=== PATIENT | female | born 1975 | race African-American/Black ===

== ENCOUNTER 2017-07-24 15:36 | Inpatient (IN) | payer MEDICAID ==
[2017-07-24] MEDS: SOD CHLORIDE 0.9% 1,000 ML IV ×2 (17:00→17:13)
[2017-07-24 17:12] LABS: ADD MAN DIFF? NO
[2017-07-24] MEDS: HYDROmorphONE 1 MG/ML SYG IV (17:13)
[2017-07-24] MEDS: ONDANSETRON 4 MG INJ IV (17:13)
[2017-07-24 17:14] LABS: BASOPHILS % 0.3 % (0.0-2.0); EOSINOPHILS % 0.4 % (0.0-7.0); HEMATOCRIT 31.4 % (37.0-47.0); LYMPHOCYTES # 0.8 10^3/ul (0.8-2.9); LYMPHOCYTES % 11.1 % (15.0-51.0); MEAN CORPUSCULAR HEMOGLOBIN 29.2 pg (29.0-33.0); MEAN CORPUSCULAR HGB CONC 31.8 g/dl (32.0-37.0); MEAN CORPUSCULAR VOLUME 91.8 fl (82.0-101.0); MEAN PLATELET VOLUME 9.3 fl (7.4-10.4); MONOCYTE # 0.3 10^3/ul (0.3-0.9); NEUTROPHIL # 5.6 10^3/ul (1.6-7.5); NEUTROPHILS % 83.9 % (39.0-77.0); PLATELET COUNT 626 10^3/UL (140-415); RED BLOOD COUNT 3.42 10^6/ul (4.20-5.40); RED CELL DISTRIBUTION WIDTH 19.8 % (11.5-14.5)
[2017-07-24 17:14] LABS: WHITE BLOOD COUNT 6.7 10^3/ul (4.8-10.8)
[2017-07-24 17:34] LABS: ALANINE AMINOTRANSFERASE 31 IU/L (13-69); ALBUMIN/GLOBULIN RATIO 0.95; ALKALINE PHOSPHATASE 107 IU/L (42-121); ANION GAP 13 (8-16); ASPARTATE AMINO TRANSFERASE 45 IU/L (15-46); BLOOD UREA NITROGEN 6 mg/dl (7-20); CALCIUM 9.5 mg/dl (8.4-10.2); CARBON DIOXIDE 31 mmol/L (21-31); CHLORIDE 102 mmol/L (97-110); CREATININE 0.51 mg/dl (0.44-1.00); GLUCOSE 101 mg/dl (70-220); POTASSIUM 3.8 mmol/L (3.5-5.1); SODIUM 142 mmol/L (135-144); TOTAL PROTEIN 8.2 g/dl (6.1-8.1)
[2017-07-24 17:35] LABS: CREATINE KINASE 64 IU/L (23-200)
[2017-07-24 18:02] LABS: LACTIC ACID 1.1 mmol/L (0.5-2.0)
[2017-07-24] MEDS: HYDROmorphONE 2 MG/ML SYG IV (19:58)
[2017-07-24] MEDS: LORAZEPAM 2 MG INJ IV (19:58)
[2017-07-24] MEDS: KETOROLAC 30 MG INJ IV (19:59)
[2017-07-24] MEDS ORDERED: ONDANSETRON 4 MG INJ IV (22:00)
[2017-07-24] MEDS ORDERED: ACETAMINOPHEN 325 MG TAB PO (22:00)
[2017-07-25] MEDS ORDERED: ACETAMINOPHEN 325 MG TAB PO (00:30)
[2017-07-25] MEDS: ONDANSETRON 4 MG INJ IV ×3 (00:48→17:31)
[2017-07-25] MEDS: HYDROmorphONE 1 MG/ML SYG IV ×6 (00:48→22:41)
[2017-07-25] MEDS: oxyCODONE 5 MG TAB PO (02:03)
[2017-07-25] MEDS: LORAZEPAM 1 MG TAB PO ×2 (06:54→17:31)
[2017-07-25] MEDS: ESCITALOPRAM 10 MG TAB PO (08:48)
[2017-07-25] MEDS: FOLIC ACID 1 MG TAB PO (08:48)
[2017-07-25] MEDS: DOCUSATE SODIUM 100 MG CAP PO ×2 (08:48→20:32)
[2017-07-25] MEDS: POTASSIUM CHLORIDE (SR) 10 MEQ TAB PO (08:48)
[2017-07-25] MEDS: FUROSEMIDE 40 MG TAB PO (08:48)
[2017-07-25] MEDS: ENOXAPARIN 40 MG/0.4 ML SYG SC (08:54)
[2017-07-25] MEDS: TAMOXIFEN 10 MG TAB PO (08:54)
[2017-07-25] MEDS: METOCLOPRAMIDE 10 MG INJ IV ×2 (13:01→22:45)
[2017-07-25] MEDS: FENTAnyl PATCH 12 MCG/HR TRANSDERM (20:26)
[2017-07-26] MEDS: ONDANSETRON 4 MG INJ IV (01:16)
[2017-07-26] MEDS: HYDROmorphONE 1 MG/ML SYG IV ×4 (02:21→11:41)
[2017-07-26] MEDS: METOCLOPRAMIDE 10 MG INJ IV (04:57)
[2017-07-26 06:18] LABS: ADD MAN DIFF? NO
[2017-07-26 06:50] LABS: ANION GAP 12 (8-16); BLOOD UREA NITROGEN 7 mg/dl (7-20); CALCIUM 9.1 mg/dl (8.4-10.2); CARBON DIOXIDE 26 mmol/L (21-31); CHLORIDE 104 mmol/L (97-110); CREATININE 0.56 mg/dl (0.44-1.00); GLUCOSE 96 mg/dl (70-220); POTASSIUM 4.2 mmol/L (3.5-5.1); SODIUM 138 mmol/L (135-144)
[2017-07-26 07:22] LABS: BASOPHILS % 0.3 % (0.0-2.0); EOSINOPHILS % 0.5 % (0.0-7.0); HEMATOCRIT 31.1 % (37.0-47.0); HEMOGLOBIN 9.9 g/dl (12.0-16.0); LYMPHOCYTES # 0.7 10^3/ul (0.8-2.9); MEAN CORPUSCULAR HEMOGLOBIN 29.5 pg (29.0-33.0); MEAN CORPUSCULAR HGB CONC 31.8 g/dl (32.0-37.0); MEAN CORPUSCULAR VOLUME 92.6 fl (82.0-101.0); MEAN PLATELET VOLUME 9.5 fl (7.4-10.4); MONOCYTE # 0.2 10^3/ul (0.3-0.9); MONOCYTES % 3.7 % (0.0-11.0); NEUTROPHILS % 84.2 % (39.0-77.0); PLATELET COUNT 582 10^3/UL (140-415); RED BLOOD COUNT 3.36 10^6/ul (4.20-5.40); RED CELL DISTRIBUTION WIDTH 19.4 % (11.5-14.5)
[2017-07-26] MEDS: DOCUSATE SODIUM 100 MG CAP PO (08:33)
[2017-07-26] MEDS: POTASSIUM CHLORIDE (SR) 10 MEQ TAB PO (08:34)
[2017-07-26] MEDS: FUROSEMIDE 40 MG TAB PO (08:34)
[2017-07-26] MEDS: FOLIC ACID 1 MG TAB PO (08:34)
[2017-07-26] MEDS: ENOXAPARIN 40 MG/0.4 ML SYG SC (08:37)
[2017-07-26] MEDS: ESCITALOPRAM 10 MG TAB PO (08:41)
[2017-07-26] MEDS: TAMOXIFEN 10 MG TAB PO (09:28)
[2017-07-26] MEDS: LORAZEPAM 1 MG TAB PO (09:46)
== END 2017-07-26 14:05 | disposition home or self-care (01) | DRG 948 ==
LOC: E/R 15:36 → MS2 21:48
DX: G89.3 Neoplasm related pain (acute) (chronic) (principal); C78.00 Secondary malignant neoplasm of unspecified lung; C78.7 Secondary malignant neoplasm of liver and intrahepatic bile duct; C79.51 Secondary malignant neoplasm of bone; C50.911 Malignant neoplasm of unspecified site of right female breast; Z17.0 Estrogen receptor positive status [ER+]; R11.0 Nausea; M79.651 Pain in right thigh; M54.5 Low back pain
CPT/HCPCS: 36415; 73700; 80048; 80053; 82550; 83605; 85025; 96374; 96375; 96376; 99217; 99285-25

== ENCOUNTER 2017-07-29 04:48 | Emergency (ER) | payer MEDICAID ==
[2017-07-29] MEDS: ONDANSETRON 4 MG INJ IV ×3 (06:34→07:52)
[2017-07-29] MEDS: SOD CHLORIDE 0.9% 1,000 ML IV ×2 (06:34→06:37)
[2017-07-29] MEDS: HYDROmorphONE 1 MG/ML SYG IV ×2 (06:37→07:52)
[2017-07-29 06:44] LABS: ADD MAN DIFF? NO
[2017-07-29 06:46] LABS: WHITE BLOOD COUNT 6.5 10^3/ul (4.8-10.8)
[2017-07-29 06:46] LABS: BASOPHIL # 0.1 10^3/ul (0.0-0.1); BASOPHILS % 1.5 % (0.0-2.0); EOSINOPHILS % 0.5 % (0.0-7.0); HEMOGLOBIN 10.3 g/dl (12.0-16.0); LYMPHOCYTES # 0.7 10^3/ul (0.8-2.9); LYMPHOCYTES % 11.2 % (15.0-51.0); MEAN CORPUSCULAR HEMOGLOBIN 28.8 pg (29.0-33.0); MEAN CORPUSCULAR HGB CONC 32.2 g/dl (32.0-37.0); MEAN CORPUSCULAR VOLUME 89.4 fl (82.0-101.0); MEAN PLATELET VOLUME 9.7 fl (7.4-10.4); MONOCYTE # 0.3 10^3/ul (0.3-0.9); NEUTROPHIL # 5.3 10^3/ul (1.6-7.5); PLATELET COUNT 515 10^3/UL (140-415); RED BLOOD COUNT 3.58 10^6/ul (4.20-5.40); RED CELL DISTRIBUTION WIDTH 18.4 % (11.5-14.5)
[2017-07-29 07:12] LABS: ALANINE AMINOTRANSFERASE 31 IU/L (13-69); ALBUMIN 4.3 g/dl (3.3-4.9); ALBUMIN/GLOBULIN RATIO 1.26; ALKALINE PHOSPHATASE 90 IU/L (42-121); ANION GAP 15 (8-16); ASPARTATE AMINO TRANSFERASE 35 IU/L (15-46); BLOOD UREA NITROGEN 9 mg/dl (7-20); CALCIUM 9.6 mg/dl (8.4-10.2); CARBON DIOXIDE 29 mmol/L (21-31); CHLORIDE 97 mmol/L (97-110); CREATININE 0.43 mg/dl (0.44-1.00); GLUCOSE 101 mg/dl (70-220); LIPASE 21 U/L (23-300); POTASSIUM 3.7 mmol/L (3.5-5.1); SODIUM 137 mmol/L (135-144); TOTAL PROTEIN 7.7 g/dl (6.1-8.1)
[2017-07-29 07:34] LABS: URINE BLOOD (Dip) POC Negative (NEGATIVE); URINE GLUCOSE (Dip) POC Negative (NEGATIVE); URINE KETONES (Dip) POC 3+ (NEGATIVE); URINE LEUKOCYTE EST (Dip) POC Negative (NEGATIVE); URINE NITRITE (Dip) POC Negative (NEGATIVE); URINE TOTAL PROTEIN POC 1+ (NEGATIVE)
== END 2017-07-29 09:00 | disposition home or self-care (01) ==
LOC: E/R 04:48
DX: E86.0 Dehydration (principal); M54.5 Low back pain; R40.2142 Coma scale, eyes open, spontaneous, at arrival to emergency department; R40.2362 Coma scale, best motor response, obeys commands, at arrival to emergency department; R40.2252 Coma scale, best verbal response, oriented, at arrival to emergency department; C44.501 Unspecified malignant neoplasm of skin of breast; Z87.891 Personal history of nicotine dependence
CPT/HCPCS: 36415; 71045; 80053; 81003; 83690; 85025; 96374; 96375; 96376; 99284-25

== ENCOUNTER 2017-08-16 09:29 | Inpatient (IN) | payer MEDICAID ==
[2017-08-16] MEDS: ONDANSETRON 4 MG INJ IV (10:14)
[2017-08-16] MEDS: morphine 4 MG/ML VIAL IV (10:14)
[2017-08-16] MEDS: LORAZEPAM 2 MG INJ IV (10:20)
[2017-08-16] MEDS: METOCLOPRAMIDE 10 MG INJ IV (10:20)
[2017-08-16] MEDS ORDERED: ACETAMINOPHEN 325 MG TAB PO (10:30)
[2017-08-16] MEDS ORDERED: ONDANSETRON 4 MG INJ IV (10:30)
[2017-08-16 10:46] LABS: LACTIC ACID 0.9 mmol/L (0.5-2.0)
[2017-08-16 10:59] LABS: ABNORMAL IP MESSAGE 1; HEMATOCRIT 28.1 % (37.0-47.0); HEMOGLOBIN 9.3 g/dl (12.0-16.0); MEAN CORPUSCULAR HEMOGLOBIN 29.7 pg (29.0-33.0); MEAN CORPUSCULAR HGB CONC 33.1 g/dl (32.0-37.0); MEAN CORPUSCULAR VOLUME 89.8 fl (82.0-101.0); MEAN PLATELET VOLUME 9.5 fl (7.4-10.4); PLATELET COUNT 392 10^3/UL (140-415); RED BLOOD COUNT 3.13 10^6/ul (4.20-5.40); RED CELL DISTRIBUTION WIDTH 17.4 % (11.5-14.5)
[2017-08-16 10:59] LABS: WHITE BLOOD COUNT 29.7 10^3/ul (4.8-10.8)
[2017-08-16 11:00] LABS: POSITIVE DIFF @See below
[2017-08-16 11:01] LABS: ADD MAN DIFF? YES
[2017-08-16 11:17] LABS: ALANINE AMINOTRANSFERASE 32 IU/L (13-69); ALBUMIN 3.7 g/dl (3.3-4.9); ALBUMIN/GLOBULIN RATIO 1.05; ALKALINE PHOSPHATASE 66 IU/L (42-121); ANION GAP 11 (8-16); ASPARTATE AMINO TRANSFERASE 37 IU/L (15-46); BLOOD UREA NITROGEN 4 mg/dl (7-20); CARBON DIOXIDE 29 mmol/L (21-31); CHLORIDE 104 mmol/L (97-110); CREATININE 0.53 mg/dl (0.44-1.00); GLUCOSE 94 mg/dl (70-220); POTASSIUM 3.7 mmol/L (3.5-5.1); SODIUM 140 mmol/L (135-144); TOTAL PROTEIN 7.2 g/dl (6.1-8.1)
[2017-08-16 11:24] LABS: INR 1.01; PROTIME 13.4 Sec (11.9-14.9)
[2017-08-16 11:29] LABS: TROPONIN-I < 0.012 ng/ml (0.00-0.12)
[2017-08-16 11:59] LABS: ADD UMIC NO; UR ASCORBIC ACID NEGATIVE (NEGATIVE); UR BILIRUBIN (Dip) NEGATIVE (NEGATIVE); UR BLOOD (Dip) NEGATIVE (NEGATIVE); UR CLARITY CLEAR (CLEAR); UR COLOR YELLOW (YELLOW); UR GLUCOSE (Dip) NEGATIVE (NEGATIVE); UR KETONES (Dip) NEGATIVE (NEGATIVE); UR LEUKOCYTE ESTERASE (Dip) NEGATIVE Leu/ul (NEGATIVE); UR NITRITE (Dip) NEGATIVE (NEGATIVE); UR SPECIFIC GRAVITY (Dip) 1.015 (1.003-1.030); UR TOTAL PROTEIN (Dip) NEGATIVE (NEGATIVE); UR UROBILINOGEN (Dip) NEGATIVE (NEGATIVE)
[2017-08-16 12:16] LABS: ANISOCYTOSIS 1+ (0-0); BAND NEUTROPHILS % (M) 27 % (0-4); BURR CELLS 1+ (0-0); HYPOCHROMASIA 1+ (0-0); LYMPHOCYTES #M 0.5 10^3/ul (0.8-2.9); LYMPHOCYTES % (M) 2 % (15-51); METAMYELOCYTES #M 0.8 10^3/ul (0.0-0.0); METAMYELOCYTES %M 3 % (0-0); MYELOCYTES #M 0.2 10^3/ul (0.0-0.0); MYELOCYTES % (M) 1 % (0-0); OVALOCYTES 1+ (0-0); PLATELET ESTIMATE NORMAL; POLYCHROMASIA 1+ (0-0); REACTIVE LYMPHOCYTES #M 0.2 10^3/ul (0.0-0.0); REACTIVE LYMPHOCYTES% (M) 1 % (0-0); SEGMENTED NEUTROPHILS (M) % 66 % (39-77)
[2017-08-16 14:22] LABS: LACTIC ACID 1.4 mmol/L (0.5-2.0)
[2017-08-16] MEDS ORDERED: LEVALBUTEROL (NEB) 0.63 MG/3 ML AMP HHN (15:30)
[2017-08-16] MEDS: AZTREONAM 1 GM/NS (PMX) 50 ML IVPB (16:03)
[2017-08-16] MEDS: METOCLOPRAMIDE 5 MG TAB PO (16:04)
[2017-08-16] MEDS: HYDROmorphONE 4 MG TAB PO (16:04)
[2017-08-16] MEDS: VANCOMYCIN 1 GM (PMX) 250 ML IVPB (16:47)
[2017-08-16] MEDS: HYDROmorphONE 0.5 MG/0.5 ML SYG IV ×2 (17:13→22:07)
[2017-08-16 17:19] LABS: LACTIC ACID 1.2 mmol/L (0.5-2.0)
[2017-08-16] MEDS: LEVALBUTEROL (NEB) 0.63 MG/3 ML AMP HHN (20:03)
[2017-08-16] MEDS: ONDANSETRON INJ 8 MG in DEXTROSE 5% 50 ML IV (20:25)
[2017-08-16] MEDS: DOCUSATE SODIUM 100 MG CAP PO (20:26)
[2017-08-16] MEDS: morphine (ER) 15 MG TAB PO (20:26)
[2017-08-17] MEDS: METOCLOPRAMIDE 5 MG TAB PO (00:39)
[2017-08-17] MEDS: LORAZEPAM 2 MG INJ IV ×3 (00:40→22:43)
[2017-08-17] MEDS: LEVALBUTEROL (NEB) 0.63 MG/3 ML AMP HHN ×4 (01:26→19:38)
[2017-08-17] MEDS: HYDROmorphONE 0.5 MG/0.5 ML SYG IV ×5 (02:33→20:47)
[2017-08-17] MEDS: ONDANSETRON INJ 8 MG in DEXTROSE 5% 50 ML IV ×3 (02:33→21:39)
[2017-08-17] MEDS: PANTOPRAZOLE (EC) 40 MG TAB PO (05:32)
[2017-08-17 05:56] LABS: ADD MAN DIFF? NO
[2017-08-17 05:57] LABS: WHITE BLOOD COUNT 13.3 10^3/ul (4.8-10.8)
[2017-08-17 05:57] LABS: ABNORMAL IP MESSAGE 1; BASOPHIL # 0.1 10^3/ul (0.0-0.1); BASOPHILS % 0.5 % (0.0-2.0); EOSINOPHILS # 0.1 10^3/ul (0.0-0.5); EOSINOPHILS % 0.6 % (0.0-7.0); HEMATOCRIT 26.1 % (37.0-47.0); HEMOGLOBIN 8.3 g/dl (12.0-16.0); LYMPHOCYTES # 0.6 10^3/ul (0.8-2.9); LYMPHOCYTES % 4.1 % (15.0-51.0); MEAN CORPUSCULAR HEMOGLOBIN 29.3 pg (29.0-33.0); MEAN CORPUSCULAR HGB CONC 31.8 g/dl (32.0-37.0); MEAN CORPUSCULAR VOLUME 92.2 fl (82.0-101.0); MEAN PLATELET VOLUME 9.2 fl (7.4-10.4); MONOCYTE # 0.3 10^3/ul (0.3-0.9); MONOCYTES % 2.2 % (0.0-11.0); NEUTROPHILS % 90.2 % (39.0-77.0); PLATELET COUNT 352 10^3/UL (140-415); RED BLOOD COUNT 2.83 10^6/ul (4.20-5.40); RED CELL DISTRIBUTION WIDTH 17.2 % (11.5-14.5)
[2017-08-17 06:12] LABS: POSITIVE DIFF @See below
[2017-08-17 06:46] LABS: ANION GAP 9 (8-16); BLOOD UREA NITROGEN 5 mg/dl (7-20); CALCIUM 8.9 mg/dl (8.4-10.2); CARBON DIOXIDE 29 mmol/L (21-31); CHLORIDE 105 mmol/L (97-110); CREATININE 0.55 mg/dl (0.44-1.00); GLUCOSE 93 mg/dl (70-220); MAGNESIUM 1.9 mg/dl (1.7-2.5); POTASSIUM 3.6 mmol/L (3.5-5.1); SODIUM 139 mmol/L (135-144)
[2017-08-17] MEDS: ENOXAPARIN 30 MG/0.3 ML SYG SC (08:35)
[2017-08-17] MEDS: morphine (ER) 15 MG TAB PO ×2 (08:36→21:39)
[2017-08-17] MEDS: DOCUSATE SODIUM 100 MG CAP PO ×2 (08:36→20:57)
[2017-08-17] MEDS: VANCOMYCIN HCL 250 MG/5ML POSYG PO ×4 (12:45→23:48)
[2017-08-17] MEDS: oxyCODONE 5 MG TAB PO (14:31)
[2017-08-17] MEDS: AZTREONAM 1 GM/NS (PMX) 50 ML IVPB ×2 (14:48→22:31)
[2017-08-17] MEDS: METOCLOPRAMIDE 10 MG INJ IV ×2 (16:33→22:43)
[2017-08-18] MEDS: HYDROmorphONE 0.5 MG/0.5 ML SYG IV ×6 (01:32→22:49)
[2017-08-18] MEDS: LEVALBUTEROL (NEB) 0.63 MG/3 ML AMP HHN ×4 (02:20→19:22)
[2017-08-18] MEDS: oxyCODONE 5 MG TAB PO ×2 (03:33→16:37)
[2017-08-18] MEDS: ONDANSETRON INJ 8 MG in DEXTROSE 5% 50 ML IV (05:36)
[2017-08-18] MEDS: VANCOMYCIN HCL 250 MG/5ML POSYG PO ×3 (05:37→18:14)
[2017-08-18] MEDS: PANTOPRAZOLE (EC) 40 MG TAB PO (05:37)
[2017-08-18] MEDS: AZTREONAM 1 GM/NS (PMX) 50 ML IVPB ×3 (06:15→21:58)
[2017-08-18 06:24] LABS: ADD MAN DIFF? NO
[2017-08-18 06:26] LABS: BASOPHIL # 0.1 10^3/ul (0.0-0.1); EOSINOPHILS # 0.1 10^3/ul (0.0-0.5); HEMATOCRIT 27.9 % (37.0-47.0); HEMOGLOBIN 9.1 g/dl (12.0-16.0); LYMPHOCYTES # 0.7 10^3/ul (0.8-2.9); LYMPHOCYTES % 13.8 % (15.0-51.0); MEAN CORPUSCULAR HEMOGLOBIN 29.7 pg (29.0-33.0); MEAN CORPUSCULAR HGB CONC 32.6 g/dl (32.0-37.0); MEAN CORPUSCULAR VOLUME 91.2 fl (82.0-101.0); MEAN PLATELET VOLUME 9.9 fl (7.4-10.4); MONOCYTE # 0.2 10^3/ul (0.3-0.9); MONOCYTES % 2.9 % (0.0-11.0); NEUTROPHIL # 4.2 10^3/ul (1.6-7.5); NEUTROPHILS % 79.8 % (39.0-77.0); PLATELET COUNT 402 10^3/UL (140-415); RED BLOOD COUNT 3.06 10^6/ul (4.20-5.40)
[2017-08-18 06:26] LABS: WHITE BLOOD COUNT 5.2 10^3/ul (4.8-10.8)
[2017-08-18] MEDS: METOCLOPRAMIDE 10 MG INJ IV ×3 (06:55→19:59)
[2017-08-18] MEDS: LORAZEPAM 2 MG INJ IV ×2 (06:56→16:38)
[2017-08-18 06:59] LABS: ANION GAP 8 (8-16); BLOOD UREA NITROGEN 4 mg/dl (7-20); CALCIUM 9.3 mg/dl (8.4-10.2); CARBON DIOXIDE 29 mmol/L (21-31); CHLORIDE 104 mmol/L (97-110); CREATININE 0.54 mg/dl (0.44-1.00); GLUCOSE 99 mg/dl (70-220); POTASSIUM 3.4 mmol/L (3.5-5.1); SODIUM 138 mmol/L (135-144)
[2017-08-18] MEDS: FOLIC ACID 1 MG TAB PO (08:43)
[2017-08-18] MEDS: ENOXAPARIN 30 MG/0.3 ML SYG SC (08:43)
[2017-08-18] MEDS: DOCUSATE SODIUM 100 MG CAP PO ×2 (08:44→20:00)
[2017-08-18] MEDS: morphine (ER) 15 MG TAB PO ×2 (08:44→20:05)
[2017-08-18] MEDS: ERGOCALCIFEROL 50,000 UNIT CAP PO (09:57)
[2017-08-18] MEDS: POTASSIUM CHLORIDE (SR) 10 MEQ TAB PO (12:25)
[2017-08-18] MEDS: TAMOXIFEN 10 MG TAB PO (14:51)
[2017-08-18] MEDS ORDERED: VANCOMYCIN IV PER PHARMACY XX (15:00)
[2017-08-18] MEDS ORDERED: PATIENT'S OWN MEDICATION TRANSDERM (15:30)
[2017-08-18] MEDS: LEVOFLOXACIN 500 MG TAB PO (16:37)
[2017-08-18] MEDS: VANCOMYCIN 1.25 GM in SOD CHLORIDE 0.9% 250 ML IVPB (16:37)
[2017-08-18] MEDS ORDERED: [UNRECOGNIZED DRUG - REMARK] XX (17:30)
[2017-08-19] MEDS: VANCOMYCIN HCL 250 MG/5ML POSYG PO ×5 (00:12→23:17)
[2017-08-19] MEDS: LORAZEPAM 2 MG INJ IV ×3 (01:02→16:58)
[2017-08-19] MEDS: LEVALBUTEROL (NEB) 0.63 MG/3 ML AMP HHN ×4 (02:41→20:21)
[2017-08-19] MEDS: HYDROmorphONE 0.5 MG/0.5 ML SYG IV ×6 (03:05→23:17)
[2017-08-19] MEDS: VANCOMYCIN 1 GM 250 ML IVPB (03:52)
[2017-08-19 05:48] LABS: ADD MAN DIFF? NO
[2017-08-19] MEDS: PANTOPRAZOLE (EC) 40 MG TAB PO (05:48)
[2017-08-19] MEDS: LEVOFLOXACIN 500 MG TAB PO (05:48)
[2017-08-19] MEDS: METOCLOPRAMIDE 10 MG INJ IV ×3 (05:52→18:03)
[2017-08-19 05:55] LABS: EOSINOPHILS # 0.1 10^3/ul (0.0-0.5); EOSINOPHILS % 2.5 % (0.0-7.0); HEMATOCRIT 26.4 % (37.0-47.0); HEMOGLOBIN 8.4 g/dl (12.0-16.0); LYMPHOCYTES # 0.7 10^3/ul (0.8-2.9); LYMPHOCYTES % 21.3 % (15.0-51.0); MEAN CORPUSCULAR HEMOGLOBIN 29.1 pg (29.0-33.0); MEAN CORPUSCULAR HGB CONC 31.8 g/dl (32.0-37.0); MEAN CORPUSCULAR VOLUME 91.3 fl (82.0-101.0); MEAN PLATELET VOLUME 9.4 fl (7.4-10.4); MONOCYTE # 0.3 10^3/ul (0.3-0.9); MONOCYTES % 8.3 % (0.0-11.0); NEUTROPHIL # 2.1 10^3/ul (1.6-7.5); NEUTROPHILS % 65.6 % (39.0-77.0); PLATELET COUNT 377 10^3/UL (140-415); RED BLOOD COUNT 2.89 10^6/ul (4.20-5.40); RED CELL DISTRIBUTION WIDTH 16.8 % (11.5-14.5)
[2017-08-19 05:55] LABS: WHITE BLOOD COUNT 3.2 10^3/ul (4.8-10.8)
[2017-08-19 06:14] LABS: ANION GAP 10 (8-16); BLOOD UREA NITROGEN 4 mg/dl (7-20); CALCIUM 9.2 mg/dl (8.4-10.2); CARBON DIOXIDE 28 mmol/L (21-31); CHLORIDE 107 mmol/L (97-110); CREATININE 0.48 mg/dl (0.44-1.00); GLUCOSE 93 mg/dl (70-220); POTASSIUM 3.7 mmol/L (3.5-5.1); SODIUM 141 mmol/L (135-144)
[2017-08-19] MEDS: AZTREONAM 1 GM/NS (PMX) 50 ML IVPB (06:57)
[2017-08-19] MEDS: SANCUSO TRANSDERM (08:34)
[2017-08-19] MEDS: morphine (ER) 15 MG TAB PO ×2 (08:35→20:36)
[2017-08-19] MEDS: FOLIC ACID 1 MG TAB PO (08:35)
[2017-08-19] MEDS: DOCUSATE SODIUM 100 MG CAP PO ×2 (08:35→20:37)
[2017-08-19] MEDS: TAMOXIFEN 10 MG TAB PO (08:37)
[2017-08-19] MEDS: ENOXAPARIN 30 MG/0.3 ML SYG SC (08:38)
[2017-08-19] MEDS: oxyCODONE 5 MG TAB PO (14:30)
[2017-08-19] MEDS ORDERED: FENTAnyl PATCH 12 MCG/HR TRANSDERM (17:30)
[2017-08-19] MEDS: FUROSEMIDE 40 MG TAB PO (18:08)
[2017-08-20] MEDS: METOCLOPRAMIDE 10 MG INJ IV ×3 (01:11→18:49)
[2017-08-20] MEDS: LORAZEPAM 2 MG INJ IV ×3 (01:11→18:49)
[2017-08-20] MEDS: LEVALBUTEROL (NEB) 0.63 MG/3 ML AMP HHN ×4 (03:20→19:12)
[2017-08-20] MEDS: HYDROmorphONE 0.5 MG/0.5 ML SYG IV ×5 (03:39→21:19)
[2017-08-20] MEDS: PANTOPRAZOLE (EC) 40 MG TAB PO (05:39)
[2017-08-20] MEDS: LEVOFLOXACIN 500 MG TAB PO (05:40)
[2017-08-20] MEDS: oxyCODONE 5 MG TAB PO (05:40)
[2017-08-20] MEDS: VANCOMYCIN HCL 250 MG/5ML POSYG PO ×3 (05:40→18:49)
[2017-08-20] MEDS: DOCUSATE SODIUM 100 MG CAP PO ×2 (09:00→20:22)
[2017-08-20] MEDS: FUROSEMIDE 40 MG TAB PO (09:05)
[2017-08-20] MEDS: morphine (ER) 15 MG TAB PO ×2 (09:05→20:26)
[2017-08-20] MEDS: FOLIC ACID 1 MG TAB PO (09:05)
[2017-08-20] MEDS: TAMOXIFEN 10 MG TAB PO (09:07)
[2017-08-20] MEDS: ENOXAPARIN 30 MG/0.3 ML SYG SC (09:08)
[2017-08-21] MEDS: VANCOMYCIN HCL 250 MG/5ML POSYG PO ×4 (00:50→17:13)
[2017-08-21] MEDS: METOCLOPRAMIDE 10 MG INJ IV ×3 (00:50→17:13)
[2017-08-21] MEDS: HYDROmorphONE 0.5 MG/0.5 ML SYG IV ×6 (01:21→22:39)
[2017-08-21] MEDS: LEVALBUTEROL (NEB) 0.63 MG/3 ML AMP HHN ×4 (01:22→19:42)
[2017-08-21] MEDS: LORAZEPAM 2 MG INJ IV ×3 (02:46→19:29)
[2017-08-21] MEDS: PANTOPRAZOLE (EC) 40 MG TAB PO (05:53)
[2017-08-21] MEDS: LEVOFLOXACIN 500 MG TAB PO (05:53)
[2017-08-21 06:09] LABS: ADD MAN DIFF? NO
[2017-08-21 06:18] LABS: HEMATOCRIT 29.3 % (37.0-47.0); HEMOGLOBIN 9.3 g/dl (12.0-16.0); MEAN CORPUSCULAR HEMOGLOBIN 28.9 pg (29.0-33.0); MEAN CORPUSCULAR HGB CONC 31.7 g/dl (32.0-37.0); MEAN PLATELET VOLUME 9.3 fl (7.4-10.4); NUCLEATED RED BLOOD CELLS% 1.3 /100WBC (0.0-0.0); PLATELET COUNT 455 10^3/UL (140-415); RED BLOOD COUNT 3.22 10^6/ul (4.20-5.40); RED CELL DISTRIBUTION WIDTH 17.3 % (11.5-14.5)
[2017-08-21 06:18] LABS: WHITE BLOOD COUNT 3.1 10^3/ul (4.8-10.8)
[2017-08-21 06:41] LABS: ANION GAP 14 (8-16); BLOOD UREA NITROGEN 7 mg/dl (7-20); CALCIUM 8.9 mg/dl (8.4-10.2); CARBON DIOXIDE 30 mmol/L (21-31); CHLORIDE 106 mmol/L (97-110); CREATININE 0.58 mg/dl (0.44-1.00); GLUCOSE 88 mg/dl (70-220); POTASSIUM 3.5 mmol/L (3.5-5.1); SODIUM 146 mmol/L (135-144)
[2017-08-21] MEDS: FOLIC ACID 1 MG TAB PO (08:40)
[2017-08-21] MEDS: morphine (ER) 15 MG TAB PO ×2 (08:41→21:05)
[2017-08-21] MEDS: TAMOXIFEN 10 MG TAB PO (08:42)
[2017-08-21] MEDS: ENOXAPARIN 30 MG/0.3 ML SYG SC (08:43)
[2017-08-21] MEDS: FUROSEMIDE 40 MG TAB PO (08:51)
[2017-08-21] MEDS: DOCUSATE SODIUM 100 MG CAP PO ×2 (09:00→21:00)
[2017-08-21] MEDS: oxyCODONE 5 MG TAB PO (17:14)
[2017-08-22] MEDS: VANCOMYCIN HCL 250 MG/5ML POSYG PO ×4 (00:01→17:52)
[2017-08-22] MEDS: LEVALBUTEROL (NEB) 0.63 MG/3 ML AMP HHN ×4 (02:08→20:00)
[2017-08-22] MEDS: HYDROmorphONE 0.5 MG/0.5 ML SYG IV ×5 (02:49→19:55)
[2017-08-22] MEDS: LORAZEPAM 2 MG INJ IV ×3 (04:35→22:26)
[2017-08-22] MEDS: METOCLOPRAMIDE 10 MG INJ IV ×3 (04:35→22:26)
[2017-08-22 05:02] LABS: HEMATOCRIT 24.4 % (37.0-47.0); HEMOGLOBIN 7.9 g/dl (12.0-16.0); MEAN CORPUSCULAR HEMOGLOBIN 29.4 pg (29.0-33.0); MEAN CORPUSCULAR HGB CONC 32.4 g/dl (32.0-37.0); MEAN CORPUSCULAR VOLUME 90.7 fl (82.0-101.0); MEAN PLATELET VOLUME 9.2 fl (7.4-10.4); NUCLEATED RED BLOOD CELLS% 0.6 /100WBC (0.0-0.0); PLATELET COUNT 396 10^3/UL (140-415); RED BLOOD COUNT 2.69 10^6/ul (4.20-5.40); RED CELL DISTRIBUTION WIDTH 17.6 % (11.5-14.5)
[2017-08-22 05:02] LABS: WHITE BLOOD COUNT 3.2 10^3/ul (4.8-10.8)
[2017-08-22 05:05] LABS: ADD MAN DIFF? YES
[2017-08-22 05:10] LABS: BASOPHILS % 0.6 % (0.0-2.0); EOSINOPHILS # 0.1 10^3/ul (0.0-0.5); EOSINOPHILS % 3.8 % (0.0-7.0); LYMPHOCYTES # 0.7 10^3/ul (0.8-2.9); LYMPHOCYTES % 23.4 % (15.0-51.0); MONOCYTE # 0.8 10^3/ul (0.3-0.9); MONOCYTES % 24.7 % (0.0-11.0); NEUTROPHIL # 1.5 10^3/ul (1.6-7.5); NEUTROPHILS % 45.9 % (39.0-77.0)
[2017-08-22 05:24] LABS: ANION GAP 11 (8-16); BLOOD UREA NITROGEN 7 mg/dl (7-20); CALCIUM 8.8 mg/dl (8.4-10.2); CARBON DIOXIDE 30 mmol/L (21-31); CHLORIDE 107 mmol/L (97-110); CREATININE 0.51 mg/dl (0.44-1.00); GLUCOSE 98 mg/dl (70-220); POTASSIUM 3.2 mmol/L (3.5-5.1); SODIUM 145 mmol/L (135-144)
[2017-08-22] MEDS: PANTOPRAZOLE (EC) 40 MG TAB PO (06:00)
[2017-08-22] MEDS: LEVOFLOXACIN 500 MG TAB PO (06:00)
[2017-08-22] MEDS: DOCUSATE SODIUM 100 MG CAP PO ×2 (07:30→21:00)
[2017-08-22] MEDS: morphine (ER) 15 MG TAB PO ×2 (09:27→21:01)
[2017-08-22] MEDS: FOLIC ACID 1 MG TAB PO (09:28)
[2017-08-22] MEDS: FUROSEMIDE 40 MG TAB PO (09:29)
[2017-08-22] MEDS: ENOXAPARIN 30 MG/0.3 ML SYG SC (09:32)
[2017-08-22] MEDS: TAMOXIFEN 10 MG TAB PO (09:32)
[2017-08-22] MEDS: POTASSIUM CHLORIDE 20 MEQ POWDER FOR ORAL SOLN PO (17:53)
[2017-08-23] MEDS: VANCOMYCIN HCL 250 MG/5ML POSYG PO ×5 (00:08→23:26)
[2017-08-23] MEDS: HYDROmorphONE 0.5 MG/0.5 ML SYG IV ×6 (00:09→21:30)
[2017-08-23] MEDS: LEVALBUTEROL (NEB) 0.63 MG/3 ML AMP HHN ×4 (01:57→19:18)
[2017-08-23] MEDS: PANTOPRAZOLE (EC) 40 MG TAB PO (06:32)
[2017-08-23] MEDS: LEVOFLOXACIN 500 MG TAB PO (06:32)
[2017-08-23] MEDS: METOCLOPRAMIDE 10 MG INJ IV ×2 (06:32→15:09)
[2017-08-23] MEDS: LORAZEPAM 2 MG INJ IV ×2 (06:33→15:10)
[2017-08-23] MEDS: ENOXAPARIN 30 MG/0.3 ML SYG SC (08:34)
[2017-08-23] MEDS: FOLIC ACID 1 MG TAB PO (08:35)
[2017-08-23] MEDS: TAMOXIFEN 10 MG TAB PO (08:36)
[2017-08-23] MEDS: FUROSEMIDE 40 MG TAB PO (08:37)
[2017-08-23] MEDS: DOCUSATE SODIUM 100 MG CAP PO ×2 (08:53→20:18)
[2017-08-23] MEDS: morphine (ER) 15 MG TAB PO ×2 (08:54→23:23)
[2017-08-23] MEDS: oxyCODONE 5 MG TAB PO (20:14)
[2017-08-24] MEDS: LORAZEPAM 2 MG INJ IV ×3 (00:10→16:46)
[2017-08-24] MEDS: METOCLOPRAMIDE 10 MG INJ IV ×3 (00:13→16:46)
[2017-08-24] MEDS: HYDROmorphONE 0.5 MG/0.5 ML SYG IV ×6 (01:35→23:07)
[2017-08-24] MEDS: LEVALBUTEROL (NEB) 0.63 MG/3 ML AMP HHN ×4 (01:41→20:18)
[2017-08-24] MEDS: LEVOFLOXACIN 500 MG TAB PO (05:52)
[2017-08-24] MEDS: PANTOPRAZOLE (EC) 40 MG TAB PO (05:52)
[2017-08-24 05:53] LABS: ADD MAN DIFF? NO
[2017-08-24] MEDS: VANCOMYCIN HCL 250 MG/5ML POSYG PO ×4 (05:53→23:23)
[2017-08-24 05:58] LABS: WHITE BLOOD COUNT 3.3 10^3/ul (4.8-10.8)
[2017-08-24 05:58] LABS: BASOPHILS % 0.6 % (0.0-2.0); EOSINOPHILS # 0.2 10^3/ul (0.0-0.5); EOSINOPHILS % 4.5 % (0.0-7.0); HEMATOCRIT 26.4 % (37.0-47.0); HEMOGLOBIN 8.5 g/dl (12.0-16.0); LYMPHOCYTES # 0.8 10^3/ul (0.8-2.9); LYMPHOCYTES % 23.9 % (15.0-51.0); MEAN CORPUSCULAR HEMOGLOBIN 29.7 pg (29.0-33.0); MEAN CORPUSCULAR HGB CONC 32.2 g/dl (32.0-37.0); MEAN CORPUSCULAR VOLUME 92.3 fl (82.0-101.0); MEAN PLATELET VOLUME 9.3 fl (7.4-10.4); MONOCYTE # 0.8 10^3/ul (0.3-0.9); MONOCYTES % 23.6 % (0.0-11.0); NEUTROPHIL # 1.5 10^3/ul (1.6-7.5); NEUTROPHILS % 46.8 % (39.0-77.0); NUCLEATED RED BLOOD CELLS% 0.6 /100WBC (0.0-0.0); PLATELET COUNT 399 10^3/UL (140-415); RED BLOOD COUNT 2.86 10^6/ul (4.20-5.40); RED CELL DISTRIBUTION WIDTH 17.5 % (11.5-14.5)
[2017-08-24 06:56] LABS: BLOOD UREA NITROGEN 8 mg/dl (7-20); CALCIUM 8.5 mg/dl (8.4-10.2); CARBON DIOXIDE 31 mmol/L (21-31); CHLORIDE 106 mmol/L (97-110); CREATININE 0.56 mg/dl (0.44-1.00); GLUCOSE 103 mg/dl (70-220); SODIUM 145 mmol/L (135-144)
[2017-08-24 07:58] LABS: ANION GAP 11 (8-16)
[2017-08-24 07:59] LABS: POTASSIUM 3.2 mmol/L (3.5-5.1)
[2017-08-24] MEDS: DOCUSATE SODIUM 100 MG CAP PO ×3 (09:00→21:00)
[2017-08-24] MEDS ORDERED: ERGOCALCIFEROL 50,000 UNIT CAP PO (09:00)
[2017-08-24] MEDS: ENOXAPARIN 30 MG/0.3 ML SYG SC (09:04)
[2017-08-24] MEDS: TAMOXIFEN 10 MG TAB PO (09:05)
[2017-08-24] MEDS: morphine (ER) 15 MG TAB PO ×2 (09:08→21:04)
[2017-08-24] MEDS: FOLIC ACID 1 MG TAB PO (09:08)
[2017-08-24] MEDS: FUROSEMIDE 40 MG TAB PO (09:08)
[2017-08-25] MEDS: LORAZEPAM 2 MG INJ IV ×2 (01:21→09:57)
[2017-08-25] MEDS: METOCLOPRAMIDE 10 MG INJ IV ×2 (01:25→09:57)
[2017-08-25] MEDS: LEVALBUTEROL (NEB) 0.63 MG/3 ML AMP HHN ×2 (02:23→10:06)
[2017-08-25] MEDS: HYDROmorphONE 0.5 MG/0.5 ML SYG IV ×3 (03:38→11:44)
[2017-08-25] MEDS: VANCOMYCIN HCL 250 MG/5ML POSYG PO ×2 (05:37→11:44)
[2017-08-25] MEDS: PANTOPRAZOLE (EC) 40 MG TAB PO (05:37)
[2017-08-25] MEDS: LEVOFLOXACIN 500 MG TAB PO (05:37)
[2017-08-25] MEDS: TAMOXIFEN 10 MG TAB PO (08:37)
[2017-08-25] MEDS: ENOXAPARIN 30 MG/0.3 ML SYG SC (08:37)
[2017-08-25] MEDS: DOCUSATE SODIUM 100 MG CAP PO (08:38)
[2017-08-25] MEDS: FOLIC ACID 1 MG TAB PO (08:38)
[2017-08-25] MEDS: FUROSEMIDE 40 MG TAB PO (08:39)
[2017-08-25] MEDS: morphine (ER) 15 MG TAB PO (08:39)
[2017-08-25] MEDS: ERGOCALCIFEROL 50,000 UNIT CAP PO (08:42)
== END 2017-08-25 13:20 | disposition home or self-care (01) | DRG 194 ==
LOC: PP2 08-19 13:07 → E/R 09:29 → PP2 10:19
PROVIDERS: Internal Medicine
DX: J18.9 Pneumonia, unspecified organism (principal); A04.71 Enterocolitis due to Clostridium difficile, recurrent; C79.51 Secondary malignant neoplasm of bone; J90 Pleural effusion, not elsewhere classified; C50.919 Malignant neoplasm of unspecified site of unspecified female breast; M79.606 Pain in leg, unspecified; D64.9 Anemia, unspecified; M48.52XS Collapsed vertebra, not elsewhere classified, cervical region, sequela of fracture; R19.7 Diarrhea, unspecified; Z87.891 Personal history of nicotine dependence; R11.0 Nausea; T45.1X5A Adverse effect of antineoplastic and immunosuppressive drugs, initial encounter
CPT/HCPCS: 71045; 80048; 80053; 81003; 83605; 83735; 84484; 84703; 85025; 85610; 85730; 87040; 87045; 87075; 87086; 87400; 93005; 94640; 94664; 96374; 96375; 99285-25; G0378

== ENCOUNTER 2017-08-29 15:57 | Inpatient (IN) | payer MEDICAID ==
[2017-08-29] MEDS ORDERED: HYDROmorphONE 1 MG/ML SYG IV (19:40)
[2017-08-29 20:22] LABS: ADD MAN DIFF? NO
[2017-08-29 20:26] LABS: WHITE BLOOD COUNT 7.6 10^3/ul (4.8-10.8)
[2017-08-29 20:26] LABS: BASOPHILS % 0.5 % (0.0-2.0); EOSINOPHILS # 0.1 10^3/ul (0.0-0.5); EOSINOPHILS % 0.9 % (0.0-7.0); HEMATOCRIT 34.3 % (37.0-47.0); LYMPHOCYTES # 0.8 10^3/ul (0.8-2.9); LYMPHOCYTES % 10.7 % (15.0-51.0); MEAN CORPUSCULAR HEMOGLOBIN 29.5 pg (29.0-33.0); MEAN CORPUSCULAR HGB CONC 32.1 g/dl (32.0-37.0); MEAN PLATELET VOLUME 9.3 fl (7.4-10.4); MONOCYTE # 0.6 10^3/ul (0.3-0.9); MONOCYTES % 8.3 % (0.0-11.0); NEUTROPHILS % 79.2 % (39.0-77.0); PLATELET COUNT 459 10^3/UL (140-415); RED BLOOD COUNT 3.73 10^6/ul (4.20-5.40); RED CELL DISTRIBUTION WIDTH 17.5 % (11.5-14.5)
[2017-08-29] MEDS: HYDROmorphONE 0.5 MG/0.5 ML SYG IV ×3 (20:32→22:59)
[2017-08-29 20:46] LABS: INR 0.95; PROTIME 12.8 Sec (11.9-14.9)
[2017-08-29 20:47] LABS: PARTIAL THROMBOPLASTIN TIME 27.7 Sec (25.0-35.0)
[2017-08-29 20:48] LABS: ANION GAP 14 (8-16); BLOOD UREA NITROGEN 11 mg/dl (7-20); CALCIUM 9.4 mg/dl (8.4-10.2); CARBON DIOXIDE 31 mmol/L (21-31); CHLORIDE 103 mmol/L (97-110); CREATININE 0.56 mg/dl (0.44-1.00); GLUCOSE 85 mg/dl (70-220); POTASSIUM 3.9 mmol/L (3.5-5.1); SODIUM 144 mmol/L (135-144)
[2017-08-29] MEDS: METOCLOPRAMIDE 10 MG INJ IV (20:50)
[2017-08-29] MEDS ORDERED: POTASSIUM CHLORIDE (SR) 10 MEQ TAB PO (22:00)
[2017-08-29] MEDS ORDERED: ONDANSETRON 4 MG INJ IV (22:30)
[2017-08-29] MEDS ORDERED: ACETAMINOPHEN 325 MG TAB PO (22:30)
[2017-08-29] MEDS: LEVOFLOXACIN 500MG/D5W (PMX) 100 ML IVPB (23:45)
[2017-08-30] MEDS: VANCOMYCIN HCL 250 MG/5ML POSYG PO ×5 (00:27→23:19)
[2017-08-30] MEDS: HYDROmorphONE 0.5 MG/0.5 ML SYG IV ×6 (01:11→22:27)
[2017-08-30] MEDS: LORAZEPAM 1 MG TAB PO (03:21)
[2017-08-30 05:47] LABS: ADD MAN DIFF? NO
[2017-08-30 05:59] LABS: BASOPHIL # 0.1 10^3/ul (0.0-0.1); BASOPHILS % 0.9 % (0.0-2.0); EOSINOPHILS # 0.1 10^3/ul (0.0-0.5); EOSINOPHILS % 0.7 % (0.0-7.0); HEMATOCRIT 27.7 % (37.0-47.0); HEMOGLOBIN 8.8 g/dl (12.0-16.0); LYMPHOCYTES # 0.8 10^3/ul (0.8-2.9); LYMPHOCYTES % 11.9 % (15.0-51.0); MEAN CORPUSCULAR HEMOGLOBIN 29.1 pg (29.0-33.0); MEAN CORPUSCULAR HGB CONC 31.8 g/dl (32.0-37.0); MEAN CORPUSCULAR VOLUME 91.7 fl (82.0-101.0); MONOCYTE # 0.7 10^3/ul (0.3-0.9); MONOCYTES % 10.1 % (0.0-11.0); NEUTROPHIL # 5.1 10^3/ul (1.6-7.5); NEUTROPHILS % 76.1 % (39.0-77.0); PLATELET COUNT 387 10^3/UL (140-415); RED BLOOD COUNT 3.02 10^6/ul (4.20-5.40); RED CELL DISTRIBUTION WIDTH 17.5 % (11.5-14.5)
[2017-08-30 05:59] LABS: WHITE BLOOD COUNT 6.7 10^3/ul (4.8-10.8)
[2017-08-30 06:38] LABS: ANION GAP 11 (8-16); BLOOD UREA NITROGEN 9 mg/dl (7-20); CALCIUM 8.8 mg/dl (8.4-10.2); CARBON DIOXIDE 30 mmol/L (21-31); CHLORIDE 105 mmol/L (97-110); CREATININE 0.56 mg/dl (0.44-1.00); GLUCOSE 84 mg/dl (70-220); POTASSIUM 3.7 mmol/L (3.5-5.1); SODIUM 142 mmol/L (135-144)
[2017-08-30] MEDS: morphine (ER) 15 MG TAB PO ×2 (08:20→20:38)
[2017-08-30] MEDS: METOCLOPRAMIDE 5 MG TAB PO ×2 (08:20→12:09)
[2017-08-30] MEDS: FOLIC ACID 1 MG TAB PO (08:20)
[2017-08-30] MEDS: ENOXAPARIN 40 MG/0.4 ML SYG SC (08:25)
[2017-08-30] MEDS: TAMOXIFEN 10 MG TAB PO (10:23)
[2017-08-30] MEDS ORDERED: LEVALBUTEROL (NEB) 0.63 MG/3 ML AMP HHN (14:30)
[2017-08-30] MEDS: FUROSEMIDE 20 MG INJ IV (14:30)
[2017-08-30] MEDS: METOCLOPRAMIDE 10 MG INJ IV (18:16)
[2017-08-30] MEDS: LEVALBUTEROL (NEB) 0.63 MG/3 ML AMP HHN (20:09)
[2017-08-30] MEDS: LEVOFLOXACIN 500MG/D5W (PMX) 100 ML IVPB (22:27)
[2017-08-30] MEDS: LORAZEPAM 2 MG INJ IV (23:19)
[2017-08-31] MEDS: HYDROmorphONE 0.5 MG/0.5 ML SYG IV ×6 (02:25→21:33)
[2017-08-31] MEDS: LEVALBUTEROL (NEB) 0.63 MG/3 ML AMP HHN ×4 (02:33→20:40)
[2017-08-31 05:47] LABS: ADD MAN DIFF? NO
[2017-08-31 05:52] LABS: BASOPHILS % 0.6 % (0.0-2.0); EOSINOPHILS # 0.1 10^3/ul (0.0-0.5); EOSINOPHILS % 1.6 % (0.0-7.0); HEMATOCRIT 26.2 % (37.0-47.0); HEMOGLOBIN 8.2 g/dl (12.0-16.0); LYMPHOCYTES # 0.8 10^3/ul (0.8-2.9); LYMPHOCYTES % 15.9 % (15.0-51.0); MEAN CORPUSCULAR HGB CONC 31.3 g/dl (32.0-37.0); MEAN CORPUSCULAR VOLUME 92.6 fl (82.0-101.0); MEAN PLATELET VOLUME 8.9 fl (7.4-10.4); MONOCYTE # 0.6 10^3/ul (0.3-0.9); MONOCYTES % 12.1 % (0.0-11.0); NEUTROPHIL # 3.5 10^3/ul (1.6-7.5); NEUTROPHILS % 69.4 % (39.0-77.0); PLATELET COUNT 366 10^3/UL (140-415); RED BLOOD COUNT 2.83 10^6/ul (4.20-5.40); RED CELL DISTRIBUTION WIDTH 17.2 % (11.5-14.5)
[2017-08-31] MEDS: LORAZEPAM 2 MG INJ IV ×3 (05:59→20:01)
[2017-08-31] MEDS: VANCOMYCIN HCL 250 MG/5ML POSYG PO ×4 (05:59→23:38)
[2017-08-31 06:38] LABS: ANION GAP 10 (8-16); BLOOD UREA NITROGEN 8 mg/dl (7-20); CALCIUM 8.4 mg/dl (8.4-10.2); CARBON DIOXIDE 28 mmol/L (21-31); CHLORIDE 108 mmol/L (97-110); CREATININE 0.55 mg/dl (0.44-1.00); GLUCOSE 115 mg/dl (70-220); POTASSIUM 3.2 mmol/L (3.5-5.1); SODIUM 143 mmol/L (135-144)
[2017-08-31] MEDS: ERGOCALCIFEROL 50,000 UNIT CAP PO (08:52)
[2017-08-31] MEDS: FUROSEMIDE 40 MG TAB PO (08:52)
[2017-08-31] MEDS: FOLIC ACID 1 MG TAB PO (08:52)
[2017-08-31] MEDS: TAMOXIFEN 10 MG TAB PO (08:55)
[2017-08-31] MEDS: ENOXAPARIN 40 MG/0.4 ML SYG SC (08:55)
[2017-08-31] MEDS: morphine (ER) 15 MG TAB PO ×2 (08:57→21:33)
[2017-08-31] MEDS: METOCLOPRAMIDE 10 MG INJ IV ×2 (08:58→20:01)
[2017-08-31] MEDS: LEVOFLOXACIN 500MG/D5W (PMX) 100 ML IVPB (21:32)
[2017-09-01] MEDS: HYDROmorphONE 0.5 MG/0.5 ML SYG IV ×8 (00:33→23:30)
[2017-09-01] MEDS: LEVALBUTEROL (NEB) 0.63 MG/3 ML AMP HHN ×4 (02:04→20:17)
[2017-09-01 05:52] LABS: ADD MAN DIFF? NO
[2017-09-01 06:05] LABS: BASOPHILS % 0.7 % (0.0-2.0); EOSINOPHILS # 0.1 10^3/ul (0.0-0.5); EOSINOPHILS % 1.7 % (0.0-7.0); HEMOGLOBIN 9.4 g/dl (12.0-16.0); LYMPHOCYTES # 0.9 10^3/ul (0.8-2.9); LYMPHOCYTES % 14.7 % (15.0-51.0); MEAN CORPUSCULAR HEMOGLOBIN 28.9 pg (29.0-33.0); MEAN CORPUSCULAR HGB CONC 31.3 g/dl (32.0-37.0); MEAN CORPUSCULAR VOLUME 92.3 fl (82.0-101.0); MEAN PLATELET VOLUME 8.5 fl (7.4-10.4); MONOCYTE # 0.6 10^3/ul (0.3-0.9); MONOCYTES % 10.7 % (0.0-11.0); NEUTROPHIL # 4.1 10^3/ul (1.6-7.5); NEUTROPHILS % 71.7 % (39.0-77.0); PLATELET COUNT 413 10^3/UL (140-415); RED BLOOD COUNT 3.25 10^6/ul (4.20-5.40); RED CELL DISTRIBUTION WIDTH 17.6 % (11.5-14.5)
[2017-09-01 06:05] LABS: WHITE BLOOD COUNT 5.8 10^3/ul (4.8-10.8)
[2017-09-01] MEDS: VANCOMYCIN HCL 250 MG/5ML POSYG PO ×4 (06:14→23:27)
[2017-09-01] MEDS: LEVOFLOXACIN 500 MG TAB PO (06:14)
[2017-09-01] MEDS: LORAZEPAM 2 MG INJ IV ×3 (06:48→23:27)
[2017-09-01 06:49] LABS: ANION GAP 13 (8-16); BLOOD UREA NITROGEN 6 mg/dl (7-20); CALCIUM 8.8 mg/dl (8.4-10.2); CARBON DIOXIDE 30 mmol/L (21-31); CHLORIDE 104 mmol/L (97-110); CREATININE 0.55 mg/dl (0.44-1.00); GLUCOSE 86 mg/dl (70-220); POTASSIUM 3.6 mmol/L (3.5-5.1); SODIUM 143 mmol/L (135-144)
[2017-09-01] MEDS: morphine (ER) 15 MG TAB PO ×3 (08:50→20:30)
[2017-09-01] MEDS: FOLIC ACID 1 MG TAB PO (08:50)
[2017-09-01] MEDS: FUROSEMIDE 40 MG TAB PO (08:51)
[2017-09-01] MEDS: METOCLOPRAMIDE 10 MG INJ IV ×2 (08:51→17:29)
[2017-09-01] MEDS: TAMOXIFEN 10 MG TAB PO (08:54)
[2017-09-01] MEDS: ENOXAPARIN 40 MG/0.4 ML SYG SC (08:54)
[2017-09-02] MEDS: LEVALBUTEROL (NEB) 0.63 MG/3 ML AMP HHN ×4 (02:05→20:27)
[2017-09-02] MEDS: HYDROmorphONE 0.5 MG/0.5 ML SYG IV ×7 (02:29→21:48)
[2017-09-02] MEDS: LEVOFLOXACIN 500 MG TAB PO (05:25)
[2017-09-02] MEDS: VANCOMYCIN HCL 250 MG/5ML POSYG PO ×3 (05:25→18:07)
[2017-09-02] MEDS: LORAZEPAM 2 MG INJ IV ×2 (05:25→15:33)
[2017-09-02] MEDS: METOCLOPRAMIDE 10 MG INJ IV ×2 (06:58→14:10)
[2017-09-02] MEDS: FUROSEMIDE 40 MG TAB PO (08:25)
[2017-09-02] MEDS: morphine (ER) 15 MG TAB PO ×2 (08:25→20:42)
[2017-09-02] MEDS: FOLIC ACID 1 MG TAB PO (08:25)
[2017-09-02] MEDS: ENOXAPARIN 40 MG/0.4 ML SYG SC (08:27)
[2017-09-02] MEDS: TAMOXIFEN 10 MG TAB PO (08:27)
[2017-09-03] MEDS: HYDROmorphONE 0.5 MG/0.5 ML SYG IV ×8 (00:45→21:30)
[2017-09-03] MEDS: LEVALBUTEROL (NEB) 0.63 MG/3 ML AMP HHN ×4 (01:36→20:18)
[2017-09-03 05:44] LABS: ADD MAN DIFF? NO
[2017-09-03 05:51] LABS: WHITE BLOOD COUNT 6.5 10^3/ul (4.8-10.8)
[2017-09-03 05:51] LABS: BASOPHILS % 0.3 % (0.0-2.0); EOSINOPHILS # 0.2 10^3/ul (0.0-0.5); EOSINOPHILS % 2.9 % (0.0-7.0); HEMATOCRIT 28.7 % (37.0-47.0); HEMOGLOBIN 9.3 g/dl (12.0-16.0); LYMPHOCYTES # 0.6 10^3/ul (0.8-2.9); LYMPHOCYTES % 9.9 % (15.0-51.0); MEAN CORPUSCULAR HEMOGLOBIN 29.6 pg (29.0-33.0); MEAN CORPUSCULAR HGB CONC 32.4 g/dl (32.0-37.0); MEAN CORPUSCULAR VOLUME 91.4 fl (82.0-101.0); MEAN PLATELET VOLUME 8.7 fl (7.4-10.4); MONOCYTE # 0.7 10^3/ul (0.3-0.9); MONOCYTES % 10.2 % (0.0-11.0); NEUTROPHIL # 4.9 10^3/ul (1.6-7.5); NEUTROPHILS % 76.2 % (39.0-77.0); PLATELET COUNT 442 10^3/UL (140-415); RED BLOOD COUNT 3.14 10^6/ul (4.20-5.40)
[2017-09-03 06:10] LABS: ANION GAP 14 (8-16); BLOOD UREA NITROGEN 8 mg/dl (7-20); CALCIUM 9.2 mg/dl (8.4-10.2); CARBON DIOXIDE 32 mmol/L (21-31); CHLORIDE 102 mmol/L (97-110); CREATININE 0.61 mg/dl (0.44-1.00); GLUCOSE 88 mg/dl (70-220); POTASSIUM 3.9 mmol/L (3.5-5.1); SODIUM 144 mmol/L (135-144)
[2017-09-03] MEDS: LORAZEPAM 2 MG INJ IV ×2 (07:40→18:40)
[2017-09-03] MEDS: METOCLOPRAMIDE 10 MG INJ IV ×2 (07:40→18:40)
[2017-09-03] MEDS: morphine (ER) 15 MG TAB PO ×2 (09:36→21:30)
[2017-09-03] MEDS: FOLIC ACID 1 MG TAB PO (09:36)
[2017-09-03] MEDS: FUROSEMIDE 40 MG TAB PO (09:37)
[2017-09-03] MEDS: ENOXAPARIN 40 MG/0.4 ML SYG SC (09:42)
[2017-09-03] MEDS: TAMOXIFEN 10 MG TAB PO (09:42)
[2017-09-04] MEDS: HYDROmorphONE 0.5 MG/0.5 ML SYG IV (00:52)
[2017-09-04] MEDS: LEVALBUTEROL (NEB) 0.63 MG/3 ML AMP HHN ×4 (01:31→20:00)
[2017-09-04] MEDS: HYDROmorphONE 2 MG/ML SYG IV ×7 (04:35→23:32)
[2017-09-04 06:12] LABS: ADD MAN DIFF? NO
[2017-09-04 06:22] LABS: BASOPHILS % 0.5 % (0.0-2.0); EOSINOPHILS # 0.3 10^3/ul (0.0-0.5); EOSINOPHILS % 4.5 % (0.0-7.0); HEMATOCRIT 25.2 % (37.0-47.0); HEMOGLOBIN 8.1 g/dl (12.0-16.0); LYMPHOCYTES # 0.7 10^3/ul (0.8-2.9); LYMPHOCYTES % 11.7 % (15.0-51.0); MEAN CORPUSCULAR HEMOGLOBIN 29.3 pg (29.0-33.0); MEAN CORPUSCULAR HGB CONC 32.1 g/dl (32.0-37.0); MEAN CORPUSCULAR VOLUME 91.3 fl (82.0-101.0); MEAN PLATELET VOLUME 9.3 fl (7.4-10.4); MONOCYTE # 0.7 10^3/ul (0.3-0.9); MONOCYTES % 11.4 % (0.0-11.0); NEUTROPHIL # 4.1 10^3/ul (1.6-7.5); NEUTROPHILS % 71.2 % (39.0-77.0); PLATELET COUNT 394 10^3/UL (140-415); RED BLOOD COUNT 2.76 10^6/ul (4.20-5.40); RED CELL DISTRIBUTION WIDTH 18.3 % (11.5-14.5)
[2017-09-04 06:22] LABS: WHITE BLOOD COUNT 5.8 10^3/ul (4.8-10.8)
[2017-09-04 06:41] LABS: ANION GAP 12 (8-16); BLOOD UREA NITROGEN 10 mg/dl (7-20); CALCIUM 8.8 mg/dl (8.4-10.2); CARBON DIOXIDE 33 mmol/L (21-31); CHLORIDE 101 mmol/L (97-110); CREATININE 0.59 mg/dl (0.44-1.00); GLUCOSE 87 mg/dl (70-220); POTASSIUM 3.9 mmol/L (3.5-5.1); SODIUM 142 mmol/L (135-144)
[2017-09-04] MEDS: LORAZEPAM 2 MG INJ IV (08:45)
[2017-09-04] MEDS: METOCLOPRAMIDE 10 MG INJ IV ×2 (08:45→18:54)
[2017-09-04] MEDS: FOLIC ACID 1 MG TAB PO (09:40)
[2017-09-04] MEDS: morphine (ER) 15 MG TAB PO ×2 (09:40→20:38)
[2017-09-04] MEDS: FUROSEMIDE 40 MG TAB PO (09:40)
[2017-09-04] MEDS: TAMOXIFEN 10 MG TAB PO (09:42)
[2017-09-04] MEDS: ENOXAPARIN 40 MG/0.4 ML SYG SC (09:43)
[2017-09-05] MEDS: HYDROmorphONE 2 MG/ML SYG IV ×7 (02:32→22:05)
[2017-09-05] MEDS: LEVALBUTEROL (NEB) 0.63 MG/3 ML AMP HHN ×4 (03:16→20:04)
[2017-09-05] MEDS: LORAZEPAM 2 MG INJ IV ×3 (04:02→17:15)
[2017-09-05 06:00] LABS: ADD MAN DIFF? NO
[2017-09-05 06:06] LABS: WHITE BLOOD COUNT 5.7 10^3/ul (4.8-10.8)
[2017-09-05 06:06] LABS: BASOPHILS % 0.4 % (0.0-2.0); EOSINOPHILS # 0.3 10^3/ul (0.0-0.5); EOSINOPHILS % 4.6 % (0.0-7.0); HEMATOCRIT 26.2 % (37.0-47.0); HEMOGLOBIN 8.5 g/dl (12.0-16.0); LYMPHOCYTES # 0.6 10^3/ul (0.8-2.9); LYMPHOCYTES % 10.6 % (15.0-51.0); MEAN CORPUSCULAR HEMOGLOBIN 29.2 pg (29.0-33.0); MEAN CORPUSCULAR HGB CONC 32.4 g/dl (32.0-37.0); MEAN PLATELET VOLUME 9.2 fl (7.4-10.4); MONOCYTE # 0.7 10^3/ul (0.3-0.9); MONOCYTES % 12.3 % (0.0-11.0); NEUTROPHIL # 4.1 10^3/ul (1.6-7.5); NEUTROPHILS % 71.6 % (39.0-77.0); PLATELET COUNT 390 10^3/UL (140-415); RED BLOOD COUNT 2.91 10^6/ul (4.20-5.40)
[2017-09-05 06:30] LABS: ANION GAP 11 (8-16); BLOOD UREA NITROGEN 9 mg/dl (7-20); CALCIUM 8.9 mg/dl (8.4-10.2); CARBON DIOXIDE 32 mmol/L (21-31); CHLORIDE 104 mmol/L (97-110); CREATININE 0.58 mg/dl (0.44-1.00); GLUCOSE 93 mg/dl (70-220); SODIUM 143 mmol/L (135-144)
[2017-09-05] MEDS: FOLIC ACID 1 MG TAB PO (09:33)
[2017-09-05] MEDS: FUROSEMIDE 40 MG TAB PO (09:33)
[2017-09-05] MEDS: ENOXAPARIN 40 MG/0.4 ML SYG SC (09:34)
[2017-09-05] MEDS: morphine (ER) 15 MG TAB PO ×2 (09:36→21:14)
[2017-09-05] MEDS: TAMOXIFEN 10 MG TAB PO (09:37)
[2017-09-05] MEDS: METOCLOPRAMIDE 10 MG INJ IV (10:59)
[2017-09-05] MEDS: ACETAMINOPHEN 500 MG TAB PO (17:14)
[2017-09-06] MEDS: HYDROmorphONE 2 MG/ML SYG IV ×8 (01:19→22:09)
[2017-09-06] MEDS: LEVALBUTEROL (NEB) 0.63 MG/3 ML AMP HHN ×4 (01:49→19:48)
[2017-09-06] MEDS: FUROSEMIDE 40 MG TAB PO (09:13)
[2017-09-06] MEDS: FOLIC ACID 1 MG TAB PO (09:14)
[2017-09-06] MEDS: morphine (ER) 15 MG TAB PO ×2 (09:14→21:13)
[2017-09-06] MEDS: ENOXAPARIN 40 MG/0.4 ML SYG SC (09:17)
[2017-09-06] MEDS: TAMOXIFEN 10 MG TAB PO (09:17)
[2017-09-06] MEDS: LORAZEPAM 2 MG INJ IV (17:58)
[2017-09-07] MEDS: HYDROmorphONE 2 MG/ML SYG IV ×10 (01:12→22:12)
[2017-09-07] MEDS: LEVALBUTEROL (NEB) 0.63 MG/3 ML AMP HHN ×4 (01:41→20:29)
[2017-09-07 06:05] LABS: ADD MAN DIFF? NO
[2017-09-07 06:10] LABS: ABNORMAL IP MESSAGE 1; BASOPHILS % 0.5 % (0.0-2.0); EOSINOPHILS # 0.3 10^3/ul (0.0-0.5); EOSINOPHILS % 5.3 % (0.0-7.0); HEMATOCRIT 27.2 % (37.0-47.0); HEMOGLOBIN 8.8 g/dl (12.0-16.0); LYMPHOCYTES # 0.5 10^3/ul (0.8-2.9); LYMPHOCYTES % 8.7 % (15.0-51.0); MEAN CORPUSCULAR HEMOGLOBIN 29.7 pg (29.0-33.0); MEAN CORPUSCULAR HGB CONC 32.4 g/dl (32.0-37.0); MEAN CORPUSCULAR VOLUME 91.9 fl (82.0-101.0); MEAN PLATELET VOLUME 8.7 fl (7.4-10.4); MONOCYTE # 0.7 10^3/ul (0.3-0.9); MONOCYTES % 11.6 % (0.0-11.0); NEUTROPHIL # 4.3 10^3/ul (1.6-7.5); NEUTROPHILS % 73.6 % (39.0-77.0); PLATELET COUNT 370 10^3/UL (140-415); RED BLOOD COUNT 2.96 10^6/ul (4.20-5.40); RED CELL DISTRIBUTION WIDTH 18.4 % (11.5-14.5)
[2017-09-07 06:10] LABS: WHITE BLOOD COUNT 5.9 10^3/ul (4.8-10.8)
[2017-09-07] MEDS: ENOXAPARIN 40 MG/0.4 ML SYG SC ×2 (06:26→08:53)
[2017-09-07 06:29] LABS: PARTIAL THROMBOPLASTIN TIME 29.3 Sec (25.0-35.0); PROTIME 12.2 Sec (11.9-14.9)
[2017-09-07 06:50] LABS: ANION GAP 13 (8-16); BLOOD UREA NITROGEN 8 mg/dl (7-20); CARBON DIOXIDE 32 mmol/L (21-31); CHLORIDE 102 mmol/L (97-110); CREATININE 0.61 mg/dl (0.44-1.00); GLUCOSE 88 mg/dl (70-220); POSITIVE DIFF @See below; SODIUM 143 mmol/L (135-144)
[2017-09-07] MEDS: METOCLOPRAMIDE 10 MG INJ IV ×2 (08:45→13:14)
[2017-09-07] MEDS: LORAZEPAM 2 MG INJ IV ×2 (08:54→16:36)
[2017-09-07] MEDS: FUROSEMIDE 40 MG TAB PO (09:00)
[2017-09-07] MEDS: FOLIC ACID 1 MG TAB PO (09:06)
[2017-09-07] MEDS: morphine (ER) 15 MG TAB PO ×2 (09:06→21:12)
[2017-09-07] MEDS: ERGOCALCIFEROL 50,000 UNIT CAP PO (09:06)
[2017-09-07] MEDS: TAMOXIFEN 10 MG TAB PO (09:09)
[2017-09-07] MEDS: LIDOCAINE 1% (MPF) 5 ML VIAL (17:24)
[2017-09-08] MEDS: HYDROmorphONE 2 MG/ML SYG IV ×9 (01:20→23:06)
[2017-09-08] MEDS: LEVALBUTEROL (NEB) 0.63 MG/3 ML AMP HHN ×4 (01:53→20:30)
[2017-09-08] MEDS: FOLIC ACID 1 MG TAB PO (09:09)
[2017-09-08] MEDS: morphine (ER) 15 MG TAB PO ×2 (09:09→20:29)
[2017-09-08] MEDS: FUROSEMIDE 40 MG TAB PO (09:10)
[2017-09-08] MEDS: TAMOXIFEN 10 MG TAB PO (09:13)
[2017-09-08] MEDS: ENOXAPARIN 40 MG/0.4 ML SYG SC (09:14)
[2017-09-08] MEDS: LORAZEPAM 2 MG INJ IV (11:40)
[2017-09-08] MEDS: METOCLOPRAMIDE 10 MG INJ IV (16:18)
[2017-09-09] MEDS: LEVALBUTEROL (NEB) 0.63 MG/3 ML AMP HHN ×2 (01:20→08:16)
[2017-09-09] MEDS: HYDROmorphONE 2 MG/ML SYG IV ×3 (02:21→08:43)
[2017-09-09 06:03] LABS: ADD MAN DIFF? NO
[2017-09-09 06:09] LABS: BASOPHILS % 0.5 % (0.0-2.0); EOSINOPHILS # 0.4 10^3/ul (0.0-0.5); EOSINOPHILS % 6.9 % (0.0-7.0); HEMATOCRIT 27.5 % (37.0-47.0); HEMOGLOBIN 8.8 g/dl (12.0-16.0); LYMPHOCYTES # 0.7 10^3/ul (0.8-2.9); LYMPHOCYTES % 11.1 % (15.0-51.0); MEAN CORPUSCULAR HEMOGLOBIN 29.2 pg (29.0-33.0); MEAN CORPUSCULAR VOLUME 91.4 fl (82.0-101.0); MEAN PLATELET VOLUME 8.9 fl (7.4-10.4); MONOCYTE # 0.7 10^3/ul (0.3-0.9); MONOCYTES % 11.6 % (0.0-11.0); NEUTROPHIL # 4.3 10^3/ul (1.6-7.5); NEUTROPHILS % 69.6 % (39.0-77.0); PLATELET COUNT 337 10^3/UL (140-415); RED BLOOD COUNT 3.01 10^6/ul (4.20-5.40)
[2017-09-09 06:09] LABS: WHITE BLOOD COUNT 6.2 10^3/ul (4.8-10.8)
[2017-09-09 06:30] LABS: ANION GAP 14 (8-16); BLOOD UREA NITROGEN 8 mg/dl (7-20); CARBON DIOXIDE 32 mmol/L (21-31); CHLORIDE 101 mmol/L (97-110); CREATININE 0.55 mg/dl (0.44-1.00); GLUCOSE 92 mg/dl (70-220); POTASSIUM 3.9 mmol/L (3.5-5.1); SODIUM 143 mmol/L (135-144)
[2017-09-09] MEDS: FOLIC ACID 1 MG TAB PO (08:39)
[2017-09-09] MEDS: FUROSEMIDE 40 MG TAB PO (08:43)
[2017-09-09] MEDS: ENOXAPARIN 40 MG/0.4 ML SYG SC (08:45)
[2017-09-09] MEDS: TAMOXIFEN 10 MG TAB PO (08:46)
[2017-09-09] MEDS: morphine (ER) 15 MG TAB PO (09:19)
== END 2017-09-09 10:30 | disposition home or self-care (01) | DRG 186 ==
LOC: MS2 22:01 → E/R 15:57
PROC: 0W993ZZ Drainage of Right Pleural Cavity, Percutaneous Approach (ICD-10-PCS; principal; 2017-09-07)
DX: J90 Pleural effusion, not elsewhere classified (principal); J18.9 Pneumonia, unspecified organism; C78.00 Secondary malignant neoplasm of unspecified lung; C79.51 Secondary malignant neoplasm of bone; C78.7 Secondary malignant neoplasm of liver and intrahepatic bile duct; M48.52XA Collapsed vertebra, not elsewhere classified, cervical region, initial encounter for fracture; M48.54XA Collapsed vertebra, not elsewhere classified, thoracic region, initial encounter for fracture; M48.56XA Collapsed vertebra, not elsewhere classified, lumbar region, initial encounter for fracture; C50.919 Malignant neoplasm of unspecified site of unspecified female breast; T45.1X5A Adverse effect of antineoplastic and immunosuppressive drugs, initial encounter; M79.604 Pain in right leg; R19.7 Diarrhea, unspecified; Z87.891 Personal history of nicotine dependence
CPT/HCPCS: 71045; 71046; 76942; 77014; 77412; 80048; 85025; 85610; 85730; 87081; 94640; 94664; 96374; 96375; 96376; 99285-25; J1940

== ENCOUNTER 2017-09-11 17:46 | Inpatient (IN) | payer MEDICAID ==
[2017-09-11] MEDS: SODIUM CHLORIDE 0.9% 1L BAG IV* (18:00)
[2017-09-11] MEDS: ACETAMINOPHEN 325 MG TAB PO (18:13)
[2017-09-11] MEDS: CEFEPIME 1GM/50 ML (PMX) 50 ML IVPB (18:14)
[2017-09-11] MEDS: SOD CHLORIDE 0.9% 1,000 ML IV (18:18)
[2017-09-11] MEDS: HYDROmorphONE 0.5 MG/0.5 ML SYG IV ×2 (18:18→18:20)
[2017-09-11] MEDS: ONDANSETRON 4 MG INJ IV ×2 (18:18→23:02)
[2017-09-11 18:39] LABS: ADD MAN DIFF? NO
[2017-09-11 18:40] LABS: WHITE BLOOD COUNT 15.9 10^3/ul (4.8-10.8)
[2017-09-11 18:40] LABS: ABNORMAL IP MESSAGE 1; BASOPHILS % 0.2 % (0.0-2.0); EOSINOPHILS # 0.2 10^3/ul (0.0-0.5); EOSINOPHILS % 0.9 % (0.0-7.0); HEMATOCRIT 29.5 % (37.0-47.0); HEMOGLOBIN 9.7 g/dl (12.0-16.0); LYMPHOCYTES # 0.4 10^3/ul (0.8-2.9); LYMPHOCYTES % 2.3 % (15.0-51.0); MEAN CORPUSCULAR HEMOGLOBIN 30.2 pg (29.0-33.0); MEAN CORPUSCULAR HGB CONC 32.9 g/dl (32.0-37.0); MEAN CORPUSCULAR VOLUME 91.9 fl (82.0-101.0); MEAN PLATELET VOLUME 9.9 fl (7.4-10.4); MONOCYTE # 0.4 10^3/ul (0.3-0.9); MONOCYTES % 2.6 % (0.0-11.0); NEUTROPHIL # 14.8 10^3/ul (1.6-7.5); NEUTROPHILS % 93.2 % (39.0-77.0); PLATELET COUNT 340 10^3/UL (140-415); RED BLOOD COUNT 3.21 10^6/ul (4.20-5.40); RED CELL DISTRIBUTION WIDTH 18.2 % (11.5-14.5)
[2017-09-11 18:45] LABS: POSITIVE DIFF @See below
[2017-09-11 19:00] LABS: ADD UMIC YES; UR ASCORBIC ACID NEGATIVE (NEGATIVE); UR BACTERIA FEW /HPF (NONE SEEN); UR BILIRUBIN (Dip) NEGATIVE (NEGATIVE); UR BLOOD (Dip) NEGATIVE (NEGATIVE); UR CLARITY SLIGHTLY CLOUDY (CLEAR); UR COLOR YELLOW (YELLOW); UR GLUCOSE (Dip) NEGATIVE (NEGATIVE); UR KETONES (Dip) NEGATIVE (NEGATIVE); UR LEUKOCYTE ESTERASE (Dip) 3+ Leu/ul (NEGATIVE); UR MUCUS MODERATE /HPF (NONE SEEN); UR NITRITE (Dip) NEGATIVE (NEGATIVE); UR RBC 2 /HPF (0-5); UR SPECIFIC GRAVITY (Dip) 1.018 (1.003-1.030); UR SQUAMOUS EPITHELIAL CELL FEW /HPF (FEW); UR TOTAL PROTEIN (Dip) NEGATIVE (NEGATIVE); UR UROBILINOGEN (Dip) NEGATIVE (NEGATIVE); UR WBC 5 /HPF (0-5)
[2017-09-11 19:03] LABS: LACTIC ACID 1.1 mmol/L (0.5-2.0)
[2017-09-11 19:03] LABS: INR 0.98; PROTIME 13.1 Sec (11.9-14.9)
[2017-09-11 19:04] LABS: ANION GAP 16 (8-16); BLOOD UREA NITROGEN 13 mg/dl (7-20); CALCIUM 8.9 mg/dl (8.4-10.2); CARBON DIOXIDE 28 mmol/L (21-31); CHLORIDE 105 mmol/L (97-110); CREATININE 0.58 mg/dl (0.44-1.00); GLUCOSE 83 mg/dl (70-220); PARTIAL THROMBOPLASTIN TIME 30.7 Sec (25.0-35.0); POTASSIUM 3.9 mmol/L (3.5-5.1); SODIUM 145 mmol/L (135-144)
[2017-09-11 19:17] LABS: B-TYPE NATRIURETIC PEPTIDE < 11 PG/ML (0-125); TROPONIN-I < 0.012 ng/ml (0.00-0.12)
[2017-09-11] MEDS: HYDROmorphONE 2 MG/ML SYG IV ×2 (19:50→23:03)
[2017-09-11] MEDS: IOHEXOL 350MG/ML 50 ML BTL (19:51)
[2017-09-11] MEDS: SOD CHLORIDE 0.9% 100 ML (19:51)
[2017-09-11] MEDS: IOHEXOL 100 ML (19:51)
[2017-09-11] MEDS ORDERED: ACETAMINOPHEN 325 MG TAB PO (20:00)
[2017-09-11] MEDS: FAMOTIDINE 20 MG INJ IV (20:53)
[2017-09-11] MEDS: METOCLOPRAMIDE 10 MG INJ IV (21:14)
[2017-09-11] MEDS: morphine 2 MG INJ IV (21:16)
[2017-09-11 22:15] LABS: LACTIC ACID 0.6 mmol/L (0.5-2.0)
[2017-09-12] MEDS: HYDROmorphONE 2 MG/ML SYG IV ×5 (02:10→22:27)
[2017-09-12] MEDS: ONDANSETRON 4 MG INJ IV ×2 (03:45→19:01)
[2017-09-12 05:23] LABS: ADD MAN DIFF? NO
[2017-09-12 05:31] LABS: WHITE BLOOD COUNT 14.7 10^3/ul (4.8-10.8)
[2017-09-12 05:31] LABS: ABNORMAL IP MESSAGE 1; BASOPHILS % 0.1 % (0.0-2.0); EOSINOPHILS # 0.1 10^3/ul (0.0-0.5); EOSINOPHILS % 0.5 % (0.0-7.0); HEMATOCRIT 27.1 % (37.0-47.0); HEMOGLOBIN 8.7 g/dl (12.0-16.0); LYMPHOCYTES # 0.3 10^3/ul (0.8-2.9); LYMPHOCYTES % 2.3 % (15.0-51.0); MEAN CORPUSCULAR HEMOGLOBIN 29.5 pg (29.0-33.0); MEAN CORPUSCULAR HGB CONC 32.1 g/dl (32.0-37.0); MEAN CORPUSCULAR VOLUME 91.9 fl (82.0-101.0); MONOCYTE # 0.3 10^3/ul (0.3-0.9); NEUTROPHIL # 13.9 10^3/ul (1.6-7.5); NEUTROPHILS % 94.6 % (39.0-77.0); PLATELET COUNT 270 10^3/UL (140-415); RED BLOOD COUNT 2.95 10^6/ul (4.20-5.40); RED CELL DISTRIBUTION WIDTH 18.3 % (11.5-14.5)
[2017-09-12 05:36] LABS: POSITIVE DIFF @See below
[2017-09-12 05:55] LABS: CREATINE KINASE 46 IU/L (23-200)
[2017-09-12 06:04] LABS: LACTIC ACID 0.9 mmol/L (0.5-2.0)
[2017-09-12 06:07] LABS: ALANINE AMINOTRANSFERASE 28 IU/L (13-69); ALBUMIN 3.5 g/dl (3.3-4.9); ALBUMIN/GLOBULIN RATIO 1.29; ALKALINE PHOSPHATASE 55 IU/L (42-121); ANION GAP 15 (8-16); ASPARTATE AMINO TRANSFERASE 29 IU/L (15-46); BILIRUBIN,INDIRECT 0.1 mg/dl (0-1.1); BILIRUBIN,TOTAL 0.1 mg/dl (0.2-1.3); BLOOD UREA NITROGEN 11 mg/dl (7-20); CALCIUM 8.6 mg/dl (8.4-10.2); CARBON DIOXIDE 28 mmol/L (21-31); CHLORIDE 107 mmol/L (97-110); CK INDEX 0.5; CK-MB < 0.22 ng/ml (0.0-2.4); CREATININE 0.54 mg/dl (0.44-1.00); GLUCOSE 82 mg/dl (70-220); POTASSIUM 3.9 mmol/L (3.5-5.1); SODIUM 146 mmol/L (135-144); TOTAL PROTEIN 6.2 g/dl (6.1-8.1); TROPONIN-I < 0.012 ng/ml (0.00-0.12)
[2017-09-12] MEDS: FAMOTIDINE 20 MG INJ IV ×2 (08:37→20:44)
[2017-09-12] MEDS: ENOXAPARIN 30 MG/0.3 ML SYG SC (08:41)
[2017-09-12] MEDS: NACL 0.9% 3 ML SYG IV (08:43)
[2017-09-12] MEDS ORDERED: LORAZEPAM 0.5 MG TAB PO (10:00)
[2017-09-12] MEDS: FUROSEMIDE 40 MG TAB PO (11:29)
[2017-09-12] MEDS: FOLIC ACID 1 MG TAB PO (11:29)
[2017-09-12] MEDS: TAMOXIFEN 10 MG TAB PO (12:42)
[2017-09-12] MEDS: oxyCODONE (CR) 10 MG TAB [oxyCONTIN] PO ×2 (12:44→21:00)
[2017-09-12] MEDS: HYDROmorphONE 0.5 MG/0.5 ML SYG IV ×2 (13:02→16:05)
[2017-09-12] MEDS: LEVOFLOXACIN 500MG/D5W (PMX) 100 ML IVPB (15:41)
[2017-09-12] MEDS: LORAZEPAM 2 MG INJ IV (20:44)
[2017-09-12] MEDS: morphine (ER) 30 MG TAB PO (20:44)
[2017-09-12] MEDS: METOCLOPRAMIDE 10 MG INJ IV (22:28)
[2017-09-13] MEDS: HYDROmorphONE 2 MG/ML SYG IV ×8 (01:17→23:02)
[2017-09-13] MEDS: ONDANSETRON 4 MG INJ IV (04:24)
[2017-09-13 05:53] LABS: ABNORMAL IP MESSAGE 1; HEMATOCRIT 24.9 % (37.0-47.0); MEAN CORPUSCULAR HEMOGLOBIN 29.3 pg (29.0-33.0); MEAN CORPUSCULAR HGB CONC 32.1 g/dl (32.0-37.0); MEAN CORPUSCULAR VOLUME 91.2 fl (82.0-101.0); MEAN PLATELET VOLUME 10.3 fl (7.4-10.4); PLATELET COUNT 249 10^3/UL (140-415); RED BLOOD COUNT 2.73 10^6/ul (4.20-5.40)
[2017-09-13 06:17] LABS: ANION GAP 12 (8-16); BLOOD UREA NITROGEN 10 mg/dl (7-20); CALCIUM 8.4 mg/dl (8.4-10.2); CARBON DIOXIDE 29 mmol/L (21-31); CHLORIDE 105 mmol/L (97-110); CREATININE 0.53 mg/dl (0.44-1.00); GLUCOSE 96 mg/dl (70-220); POTASSIUM 3.2 mmol/L (3.5-5.1); SODIUM 143 mmol/L (135-144)
[2017-09-13 06:19] LABS: ADD MAN DIFF? YES; POSITIVE DIFF @See below
[2017-09-13] MEDS: METOCLOPRAMIDE 10 MG INJ IV ×2 (07:25→23:00)
[2017-09-13] MEDS: ENOXAPARIN 30 MG/0.3 ML SYG SC ×2 (09:00→11:53)
[2017-09-13] MEDS: oxyCODONE (CR) 10 MG TAB [oxyCONTIN] PO ×2 (09:00→20:28)
[2017-09-13 09:12] LABS: ANISOCYTOSIS 1+ (0-0); BAND NEUTROPHILS % (M) 21 % (0-4); BASOPHILS % (M) 1 % (0-2); EOSINOPHILS % (M) 6 % (0-7); HYPOCHROMASIA 1+ (0-0); LYMPHOCYTES #M 0.2 10^3/ul (0.8-2.9); LYMPHOCYTES % (M) 5 % (15-51); MICROCYTOSIS 1+ (0-0); MONOCYTE #M 0.1 10^3/ul (0.3-0.9); MONOCYTES % (M) 2 % (0-11); PLATELET ESTIMATE NORMAL; POLYCHROMASIA 3+ (0-0); SEG NEUT #M 3.3 10^3/ul (1.6-7.5); SEGMENTED NEUTROPHILS (M) % 65 % (39-77); SMUDGE%M 1 % (0-0)
[2017-09-13] MEDS: FAMOTIDINE 20 MG INJ IV ×2 (09:36→20:25)
[2017-09-13] MEDS: FOLIC ACID 1 MG TAB PO (09:37)
[2017-09-13] MEDS: FUROSEMIDE 40 MG TAB PO (09:37)
[2017-09-13] MEDS: morphine (ER) 30 MG TAB PO ×2 (09:37→20:24)
[2017-09-13] MEDS: TAMOXIFEN 10 MG TAB PO (09:40)
[2017-09-13] MEDS: LORAZEPAM 2 MG INJ IV ×3 (10:46→23:05)
[2017-09-13] MEDS: LEVOFLOXACIN 500MG/D5W (PMX) 100 ML IVPB (14:16)
[2017-09-13] MEDS: LEVALBUTEROL (NEB) 0.63 MG/3 ML AMP HHN ×2 (15:28→20:02)
[2017-09-13] MEDS: POTASSIUM CHLORIDE 20 MEQ POWDER FOR ORAL SOLN PO (16:02)
[2017-09-13] MEDS ORDERED: VANCOMYCIN IV PER PHARMACY XX (16:30)
[2017-09-13] MEDS: VANCOMYCIN 1.25 GM in SOD CHLORIDE 0.9% 250 ML IVPB (18:24)
[2017-09-14] MEDS: LEVALBUTEROL (NEB) 0.63 MG/3 ML AMP HHN ×4 (01:02→21:18)
[2017-09-14] MEDS: HYDROmorphONE 2 MG/ML SYG IV ×7 (02:03→21:55)
[2017-09-14] MEDS: VANCOMYCIN 1 GM 250 ML IVPB ×2 (02:12→15:43)
[2017-09-14] MEDS: LORAZEPAM 2 MG INJ IV ×3 (05:38→23:48)
[2017-09-14 06:11] LABS: WHITE BLOOD COUNT 2.6 10^3/ul (4.8-10.8)
[2017-09-14 06:11] LABS: ABNORMAL IP MESSAGE 1; HEMATOCRIT 25.7 % (37.0-47.0); HEMOGLOBIN 8.2 g/dl (12.0-16.0); MEAN CORPUSCULAR HEMOGLOBIN 29.5 pg (29.0-33.0); MEAN CORPUSCULAR HGB CONC 31.9 g/dl (32.0-37.0); MEAN CORPUSCULAR VOLUME 92.4 fl (82.0-101.0); MEAN PLATELET VOLUME 9.9 fl (7.4-10.4); PLATELET COUNT 270 10^3/UL (140-415); RED BLOOD COUNT 2.78 10^6/ul (4.20-5.40); RED CELL DISTRIBUTION WIDTH 17.8 % (11.5-14.5)
[2017-09-14 06:23] LABS: ANION GAP 14 (8-16); BLOOD UREA NITROGEN 9 mg/dl (7-20); CALCIUM 8.4 mg/dl (8.4-10.2); CARBON DIOXIDE 28 mmol/L (21-31); CHLORIDE 105 mmol/L (97-110); CREATININE 0.48 mg/dl (0.44-1.00); GLUCOSE 120 mg/dl (70-220); POTASSIUM 3.2 mmol/L (3.5-5.1); SODIUM 144 mmol/L (135-144)
[2017-09-14 07:17] LABS: POSITIVE DIFF @See below
[2017-09-14 07:19] LABS: ADD MAN DIFF? YES
[2017-09-14] MEDS: ERGOCALCIFEROL 50,000 UNIT CAP PO (08:47)
[2017-09-14] MEDS: ENOXAPARIN 30 MG/0.3 ML SYG SC (08:49)
[2017-09-14] MEDS: morphine (ER) 30 MG TAB PO ×2 (08:51→21:55)
[2017-09-14] MEDS: FAMOTIDINE 20 MG INJ IV ×2 (08:59→21:54)
[2017-09-14] MEDS: oxyCODONE (CR) 10 MG TAB [oxyCONTIN] PO ×2 (09:00→21:00)
[2017-09-14] MEDS: FLUCONAZOLE 200 MG TAB PO (09:00)
[2017-09-14] MEDS: FUROSEMIDE 40 MG TAB PO (09:02)
[2017-09-14] MEDS: FOLIC ACID 1 MG TAB PO (09:02)
[2017-09-14] MEDS: TAMOXIFEN 10 MG TAB PO (09:13)
[2017-09-14 10:20] LABS: ANISOCYTOSIS 1+ (0-0); BAND NEUTROPHILS #M 0.4 10^3/ul (0.0-0.6); BAND NEUTROPHILS % (M) 19 % (0-4); BASOPHILS % (M) 1 % (0-2); BURR CELLS 1+ (0-0); EOSINOPHILS % (M) 14 % (0-7); GIANT THROMBO% (M) 2 % (0-0); HYPOCHROMASIA 1+ (0-0); LYMPHOCYTES #M 0.2 10^3/ul (0.8-2.9); LYMPHOCYTES % (M) 8 % (15-51); MICROCYTOSIS 1+ (0-0); MONOCYTES % (M) 1 % (0-11); PLATELET ESTIMATE NORMAL; POLYCHROMASIA 1+ (0-0); REACTIVE LYMPHOCYTES% (M) 2 % (0-0); SEG NEUT #M 1.4 10^3/ul (1.6-7.5); SEGMENTED NEUTROPHILS (M) % 55 % (39-77); SMUDGE%M 4 % (0-0); TEAR DROP CELLS 1+ (0-0)
[2017-09-14] MEDS: POTASSIUM CHLORIDE (SR) 10 MEQ TAB PO (11:44)
[2017-09-14] MEDS: VANCOMYCIN HCL 250 MG/5ML POSYG PO ×3 (13:21→23:48)
[2017-09-14] MEDS: METOCLOPRAMIDE 10 MG INJ IV (23:48)
[2017-09-15] MEDS: LEVALBUTEROL (NEB) 0.63 MG/3 ML AMP HHN ×5 (00:40→20:24)
[2017-09-15] MEDS: HYDROmorphONE 2 MG/ML SYG IV ×8 (00:52→23:27)
[2017-09-15 03:04] LABS: WHITE BLOOD COUNT 1.9 10^3/ul (4.8-10.8)
[2017-09-15 03:04] LABS: ABNORMAL IP MESSAGE 1; HEMATOCRIT 23.7 % (37.0-47.0); HEMOGLOBIN 7.7 g/dl (12.0-16.0); MEAN CORPUSCULAR HEMOGLOBIN 29.8 pg (29.0-33.0); MEAN CORPUSCULAR HGB CONC 32.5 g/dl (32.0-37.0); MEAN CORPUSCULAR VOLUME 91.9 fl (82.0-101.0); MEAN PLATELET VOLUME 9.5 fl (7.4-10.4); PLATELET COUNT 250 10^3/UL (140-415); RED BLOOD COUNT 2.58 10^6/ul (4.20-5.40); RED CELL DISTRIBUTION WIDTH 17.8 % (11.5-14.5)
[2017-09-15 03:06] LABS: POSITIVE DIFF @See below
[2017-09-15 03:11] LABS: ADD MAN DIFF? YES
[2017-09-15 03:23] LABS: ANION GAP 15 (8-16); BLOOD UREA NITROGEN 5 mg/dl (7-20); CALCIUM 8.5 mg/dl (8.4-10.2); CARBON DIOXIDE 28 mmol/L (21-31); CHLORIDE 106 mmol/L (97-110); CREATININE 0.52 mg/dl (0.44-1.00); GLUCOSE 86 mg/dl (70-220); POTASSIUM 3.6 mmol/L (3.5-5.1); SODIUM 145 mmol/L (135-144)
[2017-09-15 03:33] LABS: VANCOMYCIN,TROUGH 5.8 ug/ml (10.0-20.0)
[2017-09-15] MEDS: VANCOMYCIN 1 GM 250 ML IVPB ×3 (03:51→18:22)
[2017-09-15 06:18] LABS: ANISOCYTOSIS 1+ (0-0); BAND NEUTROPHILS #M 0.5 10^3/ul (0.0-0.6); BAND NEUTROPHILS % (M) 29 % (0-4); BASOPHILS % (M) 2 % (0-2); EOSINOPHILS % (M) 10 % (0-7); GIANT THROMBO% (M) 1 % (0-0); LYMPHOCYTES #M 0.2 10^3/ul (0.8-2.9); LYMPHOCYTES % (M) 14 % (15-51); MICROCYTOSIS 1+ (0-0); MONOCYTES % (M) 2 % (0-11); OVALOCYTES 1+ (0-0); PLATELET ESTIMATE NORMAL; POLYCHROMASIA 3+ (0-0); REACTIVE LYMPHOCYTES% (M) 4 % (0-0); SEG NEUT #M 0.8 10^3/ul (1.6-7.5); SEGMENTED NEUTROPHILS (M) % 39 % (39-77); SMUDGE%M 3 % (0-0)
[2017-09-15] MEDS: VANCOMYCIN HCL 250 MG/5ML POSYG PO ×3 (06:43→17:17)
[2017-09-15] MEDS: FOLIC ACID 1 MG TAB PO (09:57)
[2017-09-15] MEDS: oxyCODONE (CR) 10 MG TAB [oxyCONTIN] PO ×3 (09:57→20:39)
[2017-09-15] MEDS: morphine (ER) 30 MG TAB PO ×2 (09:58→20:39)
[2017-09-15] MEDS: TAMOXIFEN 10 MG TAB PO (09:59)
[2017-09-15] MEDS: FLUCONAZOLE 100 MG TAB PO (10:00)
[2017-09-15] MEDS: FAMOTIDINE 20 MG INJ IV ×2 (10:01→20:38)
[2017-09-15] MEDS: FUROSEMIDE 40 MG TAB PO (10:01)
[2017-09-15] MEDS: ENOXAPARIN 30 MG/0.3 ML SYG SC (10:03)
[2017-09-15] MEDS: LORAZEPAM 2 MG INJ IV ×2 (11:48→18:55)
[2017-09-15] MEDS: FILGRASTIM 300 MCG INJ SC (23:27)
[2017-09-16] MEDS: LORAZEPAM 2 MG INJ IV ×4 (00:27→23:31)
[2017-09-16] MEDS: VANCOMYCIN HCL 250 MG/5ML POSYG PO ×4 (00:27→18:08)
[2017-09-16] MEDS: LEVALBUTEROL (NEB) 0.63 MG/3 ML AMP HHN ×4 (00:32→19:27)
[2017-09-16] MEDS: HYDROmorphONE 2 MG/ML SYG IV ×7 (02:35→22:17)
[2017-09-16] MEDS: VANCOMYCIN 1 GM 250 ML IVPB ×3 (02:36→18:08)
[2017-09-16 06:15] LABS: ABNORMAL IP MESSAGE 1; HEMATOCRIT 23.6 % (37.0-47.0); HEMOGLOBIN 7.7 g/dl (12.0-16.0); MEAN CORPUSCULAR HEMOGLOBIN 29.6 pg (29.0-33.0); MEAN CORPUSCULAR HGB CONC 32.6 g/dl (32.0-37.0); MEAN CORPUSCULAR VOLUME 90.8 fl (82.0-101.0); MEAN PLATELET VOLUME 9.4 fl (7.4-10.4); PLATELET COUNT 265 10^3/UL (140-415); RED CELL DISTRIBUTION WIDTH 18.2 % (11.5-14.5)
[2017-09-16 06:15] LABS: WHITE BLOOD COUNT 3.3 10^3/ul (4.8-10.8)
[2017-09-16 06:30] LABS: ADD MAN DIFF? YES; POSITIVE DIFF @See below
[2017-09-16 07:16] LABS: ANION GAP 14 (8-16); BLOOD UREA NITROGEN 3 mg/dl (7-20); CALCIUM 8.9 mg/dl (8.4-10.2); CARBON DIOXIDE 28 mmol/L (21-31); CHLORIDE 105 mmol/L (97-110); CREATININE 0.51 mg/dl (0.44-1.00); GLUCOSE 111 mg/dl (70-220); POTASSIUM 3.3 mmol/L (3.5-5.1); SODIUM 144 mmol/L (135-144)
[2017-09-16] MEDS: oxyCODONE (CR) 10 MG TAB [oxyCONTIN] PO ×2 (09:00→22:17)
[2017-09-16 09:31] LABS: ANISOCYTOSIS 1+ (0-0); BAND NEUTROPHILS #M 1.4 10^3/ul (0.0-0.6); BAND NEUTROPHILS % (M) 43 % (0-4); BASOPHILS % (M) 1 % (0-2); EOSINOPHILS % (M) 6 % (0-7); GIANT THROMBO% (M) 5 % (0-0); HYPOCHROMASIA 1+ (0-0); LYMPHOCYTES #M 0.6 10^3/ul (0.8-2.9); LYMPHOCYTES % (M) 21 % (15-51); MICROCYTOSIS 1+ (0-0); MONOCYTE #M 0.1 10^3/ul (0.3-0.9); MONOCYTES % (M) 4 % (0-11); PLATELET ESTIMATE NORMAL; POLYCHROMASIA 3+ (0-0); RBC MORPHOLOGY COMMENT @See below; SEG NEUT #M 0.9 10^3/ul (1.6-7.5); SEGMENTED NEUTROPHILS (M) % 25 % (39-77); SMUDGE%M 13 % (0-0); WBC MORPHOLOGY COMMENT @See below
[2017-09-16] MEDS: FAMOTIDINE 20 MG INJ IV ×2 (09:31→22:17)
[2017-09-16] MEDS: FUROSEMIDE 40 MG TAB PO (09:32)
[2017-09-16] MEDS: FOLIC ACID 1 MG TAB PO (09:32)
[2017-09-16] MEDS: morphine (ER) 30 MG TAB PO ×2 (09:32→22:17)
[2017-09-16] MEDS: FLUCONAZOLE 100 MG TAB PO (09:32)
[2017-09-16] MEDS: TAMOXIFEN 10 MG TAB PO (09:33)
[2017-09-16] MEDS: ENOXAPARIN 30 MG/0.3 ML SYG SC (09:34)
[2017-09-16 12:14] LABS: VANCOMYCIN,TROUGH 11.9 ug/ml (10.0-20.0)
[2017-09-16] MEDS: FILGRASTIM 300 MCG INJ SC (16:53)
[2017-09-16] MEDS: ONDANSETRON 4 MG INJ IV (22:17)
[2017-09-16] MEDS: POTASSIUM CHLORIDE 20 MEQ POWDER FOR ORAL SOLN NGT (23:31)
[2017-09-17] MEDS: VANCOMYCIN HCL 250 MG/5ML POSYG PO ×4 (01:18→17:38)
[2017-09-17] MEDS: HYDROmorphONE 2 MG/ML SYG IV ×7 (01:19→22:39)
[2017-09-17] MEDS: LEVALBUTEROL (NEB) 0.63 MG/3 ML AMP HHN ×4 (01:25→20:16)
[2017-09-17] MEDS: VANCOMYCIN 1 GM 250 ML IVPB ×4 (04:26→17:19)
[2017-09-17] MEDS: LORAZEPAM 2 MG INJ IV ×3 (05:48→18:32)
[2017-09-17 06:17] LABS: WHITE BLOOD COUNT 6.9 10^3/ul (4.8-10.8)
[2017-09-17 06:17] LABS: ABNORMAL IP MESSAGE 1; HEMATOCRIT 23.2 % (37.0-47.0); HEMOGLOBIN 7.6 g/dl (12.0-16.0); MEAN CORPUSCULAR HGB CONC 32.8 g/dl (32.0-37.0); MEAN CORPUSCULAR VOLUME 91.7 fl (82.0-101.0); MEAN PLATELET VOLUME 9.5 fl (7.4-10.4); NUCLEATED RED BLOOD CELLS% 1.7 /100WBC (0.0-0.0); PLATELET COUNT 260 10^3/UL (140-415); RED BLOOD COUNT 2.53 10^6/ul (4.20-5.40)
[2017-09-17 06:34] LABS: ANION GAP 9 (8-16); BLOOD UREA NITROGEN 2 mg/dl (7-20); CALCIUM 8.8 mg/dl (8.4-10.2); CARBON DIOXIDE 31 mmol/L (21-31); CHLORIDE 105 mmol/L (97-110); CREATININE 0.53 mg/dl (0.44-1.00); GLUCOSE 73 mg/dl (70-220); POTASSIUM 3.9 mmol/L (3.5-5.1); SODIUM 141 mmol/L (135-144)
[2017-09-17 07:01] LABS: POSITIVE DIFF @See below
[2017-09-17 07:02] LABS: ADD MAN DIFF? YES
[2017-09-17] MEDS: FAMOTIDINE 20 MG INJ IV ×2 (08:41→20:28)
[2017-09-17] MEDS: FLUCONAZOLE 100 MG TAB PO (08:41)
[2017-09-17] MEDS: FUROSEMIDE 40 MG TAB PO (08:42)
[2017-09-17] MEDS: FOLIC ACID 1 MG TAB PO (08:42)
[2017-09-17] MEDS: morphine (ER) 30 MG TAB PO ×2 (08:42→20:29)
[2017-09-17] MEDS: ENOXAPARIN 30 MG/0.3 ML SYG SC (08:43)
[2017-09-17] MEDS: oxyCODONE (CR) 10 MG TAB [oxyCONTIN] PO ×2 (08:43→20:39)
[2017-09-17] MEDS: TAMOXIFEN 10 MG TAB PO (08:43)
[2017-09-17 09:41] LABS: ANISOCYTOSIS 1+ (0-0); BAND NEUTROPHILS % (M) 30 % (0-4); BASOPHILS % (M) 1 % (0-2); EOSINOPHILS % (M) 3 % (0-7); ERYTHROBLAST% (NRBC) (M) 6 % (0-0); GIANT THROMBO% (M) 2 % (0-0); LYMPHOCYTES #M 0.5 10^3/ul (0.8-2.9); LYMPHOCYTES % (M) 8 % (15-51); METAMYELOCYTES #M 0.2 10^3/ul (0.0-0.0); METAMYELOCYTES %M 3 % (0-0); MONOCYTE #M 0.6 10^3/ul (0.3-0.9); MONOCYTES % (M) 10 % (0-11); MYELOCYTES #M 0.1 10^3/ul (0.0-0.0); MYELOCYTES % (M) 2 % (0-0); PLATELET ESTIMATE NORMAL; POLYCHROMASIA 1+ (0-0); REACTIVE LYMPHOCYTES% (M) 1 % (0-0); SCHISTOCYTES 1+ (0-0); SEGMENTED NEUTROPHILS (M) % 41 % (39-77); SMUDGE%M 1 % (0-0); TOXIC GRANULATION 1+ (0-0)
[2017-09-17] MEDS: FILGRASTIM 300 MCG INJ SC (17:38)
[2017-09-17] MEDS: KETOROLAC 30 MG INJ IV (17:38)
[2017-09-18] MEDS: VANCOMYCIN HCL 250 MG/5ML POSYG PO ×4 (00:01→17:17)
[2017-09-18] MEDS: LORAZEPAM 2 MG INJ IV ×4 (00:02→20:32)
[2017-09-18] MEDS: HYDROmorphONE 2 MG/ML SYG IV ×8 (01:32→22:38)
[2017-09-18] MEDS: VANCOMYCIN 1 GM 250 ML IVPB ×3 (01:32→16:28)
[2017-09-18] MEDS: LEVALBUTEROL (NEB) 0.63 MG/3 ML AMP HHN ×4 (01:34→20:40)
[2017-09-18 06:42] LABS: ADD MAN DIFF? NO
[2017-09-18 06:44] LABS: ABNORMAL IP MESSAGE 1; HEMATOCRIT 24.1 % (37.0-47.0); HEMOGLOBIN 7.7 g/dl (12.0-16.0); MEAN CORPUSCULAR HEMOGLOBIN 29.3 pg (29.0-33.0); MEAN CORPUSCULAR VOLUME 91.6 fl (82.0-101.0); MEAN PLATELET VOLUME 10.3 fl (7.4-10.4); NUCLEATED RED BLOOD CELLS% 5.7 /100WBC (0.0-0.0); PLATELET COUNT 279 10^3/UL (140-415); RED BLOOD COUNT 2.63 10^6/ul (4.20-5.40); RED CELL DISTRIBUTION WIDTH 18.6 % (11.5-14.5)
[2017-09-18] MEDS: ACETAMINOPHEN 325 MG TAB PO ×3 (06:47→22:38)
[2017-09-18 07:01] LABS: POSITIVE DIFF @See below
[2017-09-18 07:17] LABS: ANION GAP 12 (8-16); BLOOD UREA NITROGEN 5 mg/dl (7-20); CALCIUM 9.1 mg/dl (8.4-10.2); CARBON DIOXIDE 31 mmol/L (21-31); CHLORIDE 104 mmol/L (97-110); CREATININE 0.61 mg/dl (0.44-1.00); GLUCOSE 78 mg/dl (70-220); POTASSIUM 3.6 mmol/L (3.5-5.1); SODIUM 143 mmol/L (135-144)
[2017-09-18] MEDS: ONDANSETRON 4 MG INJ IV (07:40)
[2017-09-18] MEDS: FLUCONAZOLE 100 MG TAB PO (08:46)
[2017-09-18] MEDS: FAMOTIDINE 20 MG INJ IV ×2 (08:46→21:39)
[2017-09-18] MEDS: FOLIC ACID 1 MG TAB PO (08:46)
[2017-09-18] MEDS: morphine (ER) 30 MG TAB PO ×2 (08:46→21:39)
[2017-09-18] MEDS: METOCLOPRAMIDE 10 MG INJ IV ×3 (08:46→14:44)
[2017-09-18] MEDS: FUROSEMIDE 40 MG TAB PO (08:49)
[2017-09-18] MEDS: oxyCODONE (CR) 10 MG TAB [oxyCONTIN] PO ×2 (09:00→21:00)
[2017-09-18] MEDS: ENOXAPARIN 30 MG/0.3 ML SYG SC (09:24)
[2017-09-18] MEDS: TAMOXIFEN 10 MG TAB PO (09:24)
[2017-09-18 12:08] LABS: ANISOCYTOSIS 1+ (0-0); BAND NEUTROPHILS #M 0.9 10^3/ul (0.0-0.6); BAND NEUTROPHILS % (M) 6 % (0-4); BASOPHIL #M 0.1 10^3/ul (0.0-0.0); BASOPHILS % (M) 1 % (0-2); BURR CELLS 1+ (0-0); ECHINOCYTOSIS 1+ (0-0); ERYTHROBLAST% (NRBC) (M) 8 % (0-0); GIANT THROMBO% (M) 7 % (0-0); LYMPHOCYTES #M 0.9 10^3/ul (0.8-2.9); LYMPHOCYTES % (M) 6 % (15-51); METAMYELOCYTES #M 0.3 10^3/ul (0.0-0.0); METAMYELOCYTES %M 2 % (0-0); MICROCYTOSIS 1+ (0-0); MONOCYTE #M 2.1 10^3/ul (0.3-0.9); MONOCYTES % (M) 14 % (0-11); MYELOCYTES #M 0.6 10^3/ul (0.0-0.0); MYELOCYTES % (M) 4 % (0-0); POIKILOCYTOSIS 1+ (0-0); POLYCHROMASIA 2+ (0-0); PROMYELOCYTES #M 0.7 10^3/ul (0-0); PROMYELOCYTES % (M) 5 % (0-0); SCHISTOCYTES 1+ (0-0); SEG NEUT #M 9.4 10^3/ul (1.6-7.5); SEGMENTED NEUTROPHILS (M) % 62 % (39-77); SMUDGE%M 9 % (0-0); SPHEROCYTES 1+ (0-0)
[2017-09-19] MEDS: VANCOMYCIN HCL 250 MG/5ML POSYG PO ×4 (00:26→18:40)
[2017-09-19] MEDS: VANCOMYCIN 1 GM 250 ML IVPB ×2 (01:32→11:01)
[2017-09-19] MEDS: HYDROmorphONE 2 MG/ML SYG IV ×7 (01:33→21:11)
[2017-09-19] MEDS: LEVALBUTEROL (NEB) 0.63 MG/3 ML AMP HHN ×4 (02:00→20:11)
[2017-09-19] MEDS: LORAZEPAM 2 MG INJ IV ×4 (02:38→22:30)
[2017-09-19] MEDS: ACETAMINOPHEN 325 MG TAB PO ×3 (06:02→18:40)
[2017-09-19] MEDS: FLUCONAZOLE 100 MG TAB PO (09:15)
[2017-09-19] MEDS: FOLIC ACID 1 MG TAB PO (09:15)
[2017-09-19] MEDS: FUROSEMIDE 40 MG TAB PO (09:15)
[2017-09-19] MEDS: FAMOTIDINE 20 MG INJ IV ×2 (09:16→21:11)
[2017-09-19] MEDS: TAMOXIFEN 10 MG TAB PO (09:23)
[2017-09-19] MEDS: ENOXAPARIN 30 MG/0.3 ML SYG SC (09:25)
[2017-09-19] MEDS: morphine (ER) 30 MG TAB PO ×2 (09:31→21:12)
[2017-09-19] MEDS: oxyCODONE (CR) 10 MG TAB [oxyCONTIN] PO ×2 (09:31→21:00)
[2017-09-19 09:32] LABS: WHITE BLOOD COUNT 24.5 10^3/ul (4.8-10.8)
[2017-09-19 09:32] LABS: ABNORMAL IP MESSAGE 1; HEMATOCRIT 27.9 % (37.0-47.0); HEMOGLOBIN 8.9 g/dl (12.0-16.0); MEAN CORPUSCULAR HEMOGLOBIN 29.2 pg (29.0-33.0); MEAN CORPUSCULAR HGB CONC 31.9 g/dl (32.0-37.0); MEAN CORPUSCULAR VOLUME 91.5 fl (82.0-101.0); MEAN PLATELET VOLUME 9.1 fl (7.4-10.4); NUCLEATED RED BLOOD CELLS% 4.3 /100WBC (0.0-0.0); PLATELET COUNT 317 10^3/UL (140-415); RED BLOOD COUNT 3.05 10^6/ul (4.20-5.40); RED CELL DISTRIBUTION WIDTH 18.6 % (11.5-14.5)
[2017-09-19 09:34] LABS: ADD MAN DIFF? YES; POSITIVE DIFF @See below
[2017-09-19 09:54] LABS: ALANINE AMINOTRANSFERASE 30 IU/L (13-69); ALBUMIN 3.9 g/dl (3.3-4.9); ALBUMIN/GLOBULIN RATIO 1.18; ALKALINE PHOSPHATASE 120 IU/L (42-121); ANION GAP 15 (8-16); ASPARTATE AMINO TRANSFERASE 46 IU/L (15-46); BLOOD UREA NITROGEN 5 mg/dl (7-20); CALCIUM 9.3 mg/dl (8.4-10.2); CARBON DIOXIDE 32 mmol/L (21-31); CHLORIDE 102 mmol/L (97-110); CREATININE 0.65 mg/dl (0.44-1.00); GLUCOSE 102 mg/dl (70-220); POTASSIUM 3.7 mmol/L (3.5-5.1); SODIUM 145 mmol/L (135-144); TOTAL PROTEIN 7.2 g/dl (6.1-8.1)
[2017-09-19 10:31] LABS: ANISOCYTOSIS 1+ (0-0); BAND NEUTROPHILS #M 2.6 10^3/ul (0.0-0.6); BAND NEUTROPHILS % (M) 11 % (0-4); ERYTHROBLAST% (NRBC) (M) 4 % (0-0); HYPOCHROMASIA 1+ (0-0); LYMPHOCYTES #M 1.2 10^3/ul (0.8-2.9); LYMPHOCYTES % (M) 5 % (15-51); METAMYELOCYTES #M 1.2 10^3/ul (0.0-0.0); METAMYELOCYTES %M 5 % (0-0); MICROCYTOSIS 1+ (0-0); MONOCYTE #M 2.4 10^3/ul (0.3-0.9); MONOCYTES % (M) 10 % (0-11); MYELOCYTES #M 1.7 10^3/ul (0.0-0.0); MYELOCYTES % (M) 7 % (0-0); OVALOCYTES 1+ (0-0); PLATELET ESTIMATE NORMAL; POLYCHROMASIA 2+ (0-0); PROMYELOCYTES #M 1.4 10^3/ul (0-0); PROMYELOCYTES % (M) 6 % (0-0); SEG NEUT #M 14.4 10^3/ul (1.6-7.5); SEGMENTED NEUTROPHILS (M) % 56 % (39-77); SMUDGE%M 2 % (0-0)
[2017-09-20] MEDS: HYDROmorphONE 2 MG/ML SYG IV ×8 (00:22→22:07)
[2017-09-20] MEDS: VANCOMYCIN HCL 250 MG/5ML POSYG PO ×5 (00:22→23:29)
[2017-09-20] MEDS: ACETAMINOPHEN 325 MG TAB PO ×3 (00:22→12:31)
[2017-09-20] MEDS: LEVALBUTEROL (NEB) 0.63 MG/3 ML AMP HHN ×4 (01:39→20:10)
[2017-09-20] MEDS: LORAZEPAM 2 MG INJ IV ×4 (04:48→23:29)
[2017-09-20 06:17] LABS: WHITE BLOOD COUNT 14.6 10^3/ul (4.8-10.8)
[2017-09-20 06:18] LABS: ABNORMAL IP MESSAGE 1; HEMATOCRIT 24.1 % (37.0-47.0); HEMOGLOBIN 7.7 g/dl (12.0-16.0); MEAN CORPUSCULAR HEMOGLOBIN 29.1 pg (29.0-33.0); MEAN CORPUSCULAR VOLUME 90.9 fl (82.0-101.0); MEAN PLATELET VOLUME 9.7 fl (7.4-10.4); NUCLEATED RED BLOOD CELLS% 4.5 /100WBC (0.0-0.0); PLATELET COUNT 251 10^3/UL (140-415); RED BLOOD COUNT 2.65 10^6/ul (4.20-5.40); RED CELL DISTRIBUTION WIDTH 18.8 % (11.5-14.5)
[2017-09-20 06:35] LABS: ADD MAN DIFF? YES; POSITIVE DIFF @See below
[2017-09-20 06:52] LABS: ANION GAP 12 (8-16); BLOOD UREA NITROGEN 4 mg/dl (7-20); CALCIUM 8.5 mg/dl (8.4-10.2); CARBON DIOXIDE 32 mmol/L (21-31); CHLORIDE 102 mmol/L (97-110); CREATININE 0.66 mg/dl (0.44-1.00); GLUCOSE 89 mg/dl (70-220); POTASSIUM 3.4 mmol/L (3.5-5.1); SODIUM 143 mmol/L (135-144)
[2017-09-20] MEDS: oxyCODONE (CR) 10 MG TAB [oxyCONTIN] PO (08:29)
[2017-09-20] MEDS: FUROSEMIDE 40 MG TAB PO (08:32)
[2017-09-20] MEDS: FOLIC ACID 1 MG TAB PO (08:33)
[2017-09-20] MEDS: morphine (ER) 30 MG TAB PO ×2 (08:33→20:34)
[2017-09-20] MEDS: FAMOTIDINE 20 MG INJ IV ×2 (08:34→20:34)
[2017-09-20] MEDS: FLUCONAZOLE 100 MG TAB PO (09:00)
[2017-09-20] MEDS: ENOXAPARIN 30 MG/0.3 ML SYG SC (10:02)
[2017-09-20] MEDS: TAMOXIFEN 10 MG TAB PO (10:02)
[2017-09-20 10:23] LABS: ANISOCYTOSIS 1+ (0-0); BAND NEUTROPHILS % (M) 7 % (0-4); BASOPHIL #M 0.4 10^3/ul (0.0-0.0); BASOPHILS % (M) 3 % (0-2); EOSINOPHILS % (M) 2 % (0-7); ERYTHROBLAST% (NRBC) (M) 2 % (0-0); GIANT THROMBO% (M) 3 % (0-0); LYMPHOCYTES #M 0.8 10^3/ul (0.8-2.9); LYMPHOCYTES % (M) 6 % (15-51); METAMYELOCYTES #M 0.7 10^3/ul (0.0-0.0); METAMYELOCYTES %M 5 % (0-0); MICROCYTOSIS 1+ (0-0); MONOCYTE #M 1.4 10^3/ul (0.3-0.9); MONOCYTES % (M) 10 % (0-11); MYELOCYTES #M 0.8 10^3/ul (0.0-0.0); MYELOCYTES % (M) 6 % (0-0); PLATELET ESTIMATE NORMAL; POLYCHROMASIA 3+ (0-0); PROMYELOCYTES #M 1.6 10^3/ul (0-0); PROMYELOCYTES % (M) 11 % (0-0); RBC MORPHOLOGY COMMENT @See below; REACTIVE LYMPHOCYTES #M 0.1 10^3/ul (0.0-0.0); REACTIVE LYMPHOCYTES% (M) 1 % (0-0); SEG NEUT #M 7.3 10^3/ul (1.6-7.5); SEGMENTED NEUTROPHILS (M) % 49 % (39-77); SMUDGE%M 3 % (0-0); WBC MORPHOLOGY COMMENT @See below
[2017-09-20] MEDS: POTASSIUM CHLORIDE 20 MEQ POWDER FOR ORAL SOLN PO (17:36)
[2017-09-20] MEDS: KETOROLAC 30 MG INJ IV (18:07)
[2017-09-20] MEDS: CHLORHEXIDINE GLUCONATE 15 ML UD CUP MT (20:34)
[2017-09-21] MEDS: ACETAMINOPHEN 325 MG TAB PO (01:07)
[2017-09-21] MEDS: HYDROmorphONE 2 MG/ML SYG IV ×8 (01:07→22:01)
[2017-09-21] MEDS: VANCOMYCIN HCL 250 MG/5ML POSYG PO ×4 (05:34→23:48)
[2017-09-21] MEDS: LORAZEPAM 2 MG INJ IV ×3 (05:34→20:15)
[2017-09-21 06:00] LABS: ABNORMAL IP MESSAGE 1; HEMATOCRIT 25.2 % (37.0-47.0); MEAN CORPUSCULAR HGB CONC 31.7 g/dl (32.0-37.0); MEAN CORPUSCULAR VOLUME 91.3 fl (82.0-101.0); MEAN PLATELET VOLUME 9.6 fl (7.4-10.4); NUCLEATED RED BLOOD CELLS% 3.7 /100WBC (0.0-0.0); PLATELET COUNT 271 10^3/UL (140-415); RED BLOOD COUNT 2.76 10^6/ul (4.20-5.40); RED CELL DISTRIBUTION WIDTH 18.9 % (11.5-14.5)
[2017-09-21 06:00] LABS: WHITE BLOOD COUNT 13.1 10^3/ul (4.8-10.8)
[2017-09-21 06:01] LABS: POSITIVE DIFF @See below
[2017-09-21 06:02] LABS: ADD MAN DIFF? YES
[2017-09-21 06:11] LABS: LACTIC ACID 0.9 mmol/L (0.5-2.0)
[2017-09-21 06:17] LABS: ANION GAP 13 (8-16); BLOOD UREA NITROGEN 7 mg/dl (7-20); CARBON DIOXIDE 33 mmol/L (21-31); CHLORIDE 102 mmol/L (97-110); CREATININE 0.72 mg/dl (0.44-1.00); GLUCOSE 105 mg/dl (70-220); POTASSIUM 3.8 mmol/L (3.5-5.1); SODIUM 144 mmol/L (135-144)
[2017-09-21 07:57] LABS: ANISOCYTOSIS 1+ (0-0); BAND NEUTROPHILS % (M) 8 % (0-4); ERYTHROBLAST% (NRBC) (M) 2 % (0-0); GIANT THROMBO% (M) 1 % (0-0); LYMPHOCYTES #M 1.3 10^3/ul (0.8-2.9); LYMPHOCYTES % (M) 10 % (15-51); METAMYELOCYTES #M 0.5 10^3/ul (0.0-0.0); METAMYELOCYTES %M 4 % (0-0); MICROCYTOSIS 1+ (0-0); MONOCYTE #M 1.8 10^3/ul (0.3-0.9); MONOCYTES % (M) 14 % (0-11); MYELOCYTES % (M) 16 % (0-0); OVALOCYTES 1+ (0-0); PLATELET ESTIMATE NORMAL; POIKILOCYTOSIS 1+ (0-0); POLYCHROMASIA 2+ (0-0); REACTIVE LYMPHOCYTES #M 0.1 10^3/ul (0.0-0.0); REACTIVE LYMPHOCYTES% (M) 1 % (0-0); SEG NEUT #M 6.3 10^3/ul (1.6-7.5); SEGMENTED NEUTROPHILS (M) % 47 % (39-77); SMUDGE%M 9 % (0-0)
[2017-09-21] MEDS: CHLORHEXIDINE GLUCONATE 15 ML UD CUP MT ×2 (09:52→20:12)
[2017-09-21] MEDS: ENOXAPARIN 30 MG/0.3 ML SYG SC (09:53)
[2017-09-21] MEDS: TAMOXIFEN 10 MG TAB PO (09:53)
[2017-09-21] MEDS: FOLIC ACID 1 MG TAB PO (09:54)
[2017-09-21] MEDS: FAMOTIDINE 20 MG INJ IV ×2 (09:54→20:12)
[2017-09-21] MEDS: FLUCONAZOLE 100 MG TAB PO (09:54)
[2017-09-21] MEDS: morphine (ER) 30 MG TAB PO ×2 (09:54→20:13)
[2017-09-21] MEDS: FUROSEMIDE 40 MG TAB PO (09:54)
[2017-09-21] MEDS: ERGOCALCIFEROL 50,000 UNIT CAP PO (12:08)
[2017-09-21] MEDS ORDERED: CLINDAMYCIN 600 MG/D5W (PMX) 50 ML IVPB (14:00)
[2017-09-21] MEDS: ERTAPENEM SODIUM 1 GM in SOD CHLORIDE 0.9% 100 ML IVPB (16:11)
[2017-09-21] MEDS: KETOROLAC 30 MG INJ IV (17:31)
[2017-09-21] MEDS: L ACIDOPHIL/B LACTIS/B LONGUM CAPSULE PO (20:12)
[2017-09-22] MEDS: HYDROmorphONE 2 MG/ML SYG IV ×8 (00:59→21:59)
[2017-09-22] MEDS: KETOROLAC 30 MG INJ IV ×4 (03:12→23:41)
[2017-09-22 06:11] LABS: WHITE BLOOD COUNT 10.3 10^3/ul (4.8-10.8)
[2017-09-22 06:11] LABS: ABNORMAL IP MESSAGE 1; HEMATOCRIT 25.1 % (37.0-47.0); MEAN CORPUSCULAR HEMOGLOBIN 29.2 pg (29.0-33.0); MEAN CORPUSCULAR HGB CONC 31.9 g/dl (32.0-37.0); MEAN CORPUSCULAR VOLUME 91.6 fl (82.0-101.0); MEAN PLATELET VOLUME 9.7 fl (7.4-10.4); NUCLEATED RED BLOOD CELLS% 1.5 /100WBC (0.0-0.0); PLATELET COUNT 270 10^3/UL (140-415); RED BLOOD COUNT 2.74 10^6/ul (4.20-5.40); RED CELL DISTRIBUTION WIDTH 18.9 % (11.5-14.5)
[2017-09-22 06:12] LABS: ADD MAN DIFF? YES; POSITIVE DIFF @See below
[2017-09-22 06:43] LABS: ANION GAP 13 (8-16); BLOOD UREA NITROGEN 9 mg/dl (7-20); CALCIUM 8.8 mg/dl (8.4-10.2); CARBON DIOXIDE 32 mmol/L (21-31); CHLORIDE 102 mmol/L (97-110); CREATININE 0.72 mg/dl (0.44-1.00); GLUCOSE 90 mg/dl (70-220); SODIUM 143 mmol/L (135-144)
[2017-09-22] MEDS: VANCOMYCIN HCL 250 MG/5ML POSYG PO ×4 (06:54→23:41)
[2017-09-22 07:30] LABS: ANISOCYTOSIS 1+ (0-0); BAND NEUTROPHILS % (M) 10 % (0-4); BASOPHIL #M 0.2 10^3/ul (0.0-0.0); BASOPHILS % (M) 2 % (0-2); ERYTHROBLAST% (NRBC) (M) 1 % (0-0); GIANT THROMBO% (M) 2 % (0-0); LYMPHOCYTES #M 0.6 10^3/ul (0.8-2.9); LYMPHOCYTES % (M) 6 % (15-51); METAMYELOCYTES #M 0.1 10^3/ul (0.0-0.0); METAMYELOCYTES %M 1 % (0-0); MICROCYTOSIS 1+ (0-0); MONOCYTE #M 1.1 10^3/ul (0.3-0.9); MONOCYTES % (M) 11 % (0-11); MYELOCYTES #M 0.4 10^3/ul (0.0-0.0); MYELOCYTES % (M) 4 % (0-0); PLATELET ESTIMATE NORMAL; POLYCHROMASIA 3+ (0-0); PROMYELOCYTES #M 0.2 10^3/ul (0-0); PROMYELOCYTES % (M) 2 % (0-0); REACTIVE LYMPHOCYTES #M 0.2 10^3/ul (0.0-0.0); REACTIVE LYMPHOCYTES% (M) 2 % (0-0); SEG NEUT #M 6.5 10^3/ul (1.6-7.5); SEGMENTED NEUTROPHILS (M) % 62 % (39-77); SMUDGE%M 5 % (0-0)
[2017-09-22] MEDS: LORAZEPAM 2 MG INJ IV ×2 (07:56→17:12)
[2017-09-22] MEDS: FAMOTIDINE 20 MG INJ IV ×2 (08:26→21:16)
[2017-09-22] MEDS: CHLORHEXIDINE GLUCONATE 15 ML UD CUP MT ×2 (08:27→21:15)
[2017-09-22] MEDS: FLUCONAZOLE 100 MG TAB PO (08:27)
[2017-09-22] MEDS: L ACIDOPHIL/B LACTIS/B LONGUM CAPSULE PO ×2 (08:27→21:15)
[2017-09-22] MEDS: FOLIC ACID 1 MG TAB PO (08:27)
[2017-09-22] MEDS: FUROSEMIDE 40 MG TAB PO (08:30)
[2017-09-22] MEDS: morphine (ER) 30 MG TAB PO ×2 (08:31→21:16)
[2017-09-22] MEDS: TAMOXIFEN 10 MG TAB PO (08:32)
[2017-09-22] MEDS: ENOXAPARIN 30 MG/0.3 ML SYG SC (08:32)
[2017-09-22] MEDS: ERTAPENEM SODIUM 1 GM in SOD CHLORIDE 0.9% 100 ML IVPB (16:29)
[2017-09-23] MEDS: HYDROmorphONE 2 MG/ML SYG IV ×8 (01:10→22:04)
[2017-09-23] MEDS: LORAZEPAM 2 MG INJ IV ×3 (02:30→20:14)
[2017-09-23 06:21] LABS: ABNORMAL IP MESSAGE 1; HEMATOCRIT 25.3 % (37.0-47.0); MEAN CORPUSCULAR HEMOGLOBIN 29.2 pg (29.0-33.0); MEAN CORPUSCULAR HGB CONC 31.6 g/dl (32.0-37.0); MEAN CORPUSCULAR VOLUME 92.3 fl (82.0-101.0); MEAN PLATELET VOLUME 9.7 fl (7.4-10.4); NUCLEATED RED BLOOD CELLS% 0.9 /100WBC (0.0-0.0); PLATELET COUNT 300 10^3/UL (140-415); RED BLOOD COUNT 2.74 10^6/ul (4.20-5.40); RED CELL DISTRIBUTION WIDTH 18.7 % (11.5-14.5)
[2017-09-23 06:21] LABS: WHITE BLOOD COUNT 7.6 10^3/ul (4.8-10.8)
[2017-09-23 06:25] LABS: ADD MAN DIFF? YES; POSITIVE DIFF @See below
[2017-09-23 06:31] LABS: ANION GAP 13 (8-16); BLOOD UREA NITROGEN 10 mg/dl (7-20); CALCIUM 8.7 mg/dl (8.4-10.2); CARBON DIOXIDE 31 mmol/L (21-31); CHLORIDE 104 mmol/L (97-110); CREATININE 0.66 mg/dl (0.44-1.00); GLUCOSE 116 mg/dl (70-220); POTASSIUM 3.9 mmol/L (3.5-5.1); SODIUM 144 mmol/L (135-144)
[2017-09-23] MEDS: VANCOMYCIN HCL 250 MG/5ML POSYG PO ×4 (06:58→23:49)
[2017-09-23 07:54] LABS: ANISOCYTOSIS 1+ (0-0); BAND NEUTROPHILS #M 0.6 10^3/ul (0.0-0.6); BAND NEUTROPHILS % (M) 8 % (0-4); EOSINOPHILS % (M) 1 % (0-7); ERYTHROBLAST% (NRBC) (M) 1 % (0-0); GIANT THROMBO% (M) 2 % (0-0); LYMPHOCYTES #M 1.4 10^3/ul (0.8-2.9); LYMPHOCYTES % (M) 19 % (15-51); MICROCYTOSIS 1+ (0-0); MONOCYTE #M 0.5 10^3/ul (0.3-0.9); MONOCYTES % (M) 7 % (0-11); MYELOCYTES #M 0.3 10^3/ul (0.0-0.0); MYELOCYTES % (M) 5 % (0-0); PLATELET ESTIMATE NORMAL; POLYCHROMASIA 3+ (0-0); PROMYELOCYTES #M 0.1 10^3/ul (0-0); PROMYELOCYTES % (M) 2 % (0-0); SEG NEUT #M 4.5 10^3/ul (1.6-7.5); SEGMENTED NEUTROPHILS (M) % 58 % (39-77); SMUDGE%M 15 % (0-0)
[2017-09-23] MEDS: KETOROLAC 30 MG INJ IV ×3 (08:42→23:49)
[2017-09-23] MEDS: L ACIDOPHIL/B LACTIS/B LONGUM CAPSULE PO ×2 (09:29→20:14)
[2017-09-23] MEDS: FLUCONAZOLE 100 MG TAB PO (09:29)
[2017-09-23] MEDS: morphine (ER) 30 MG TAB PO ×2 (09:29→20:31)
[2017-09-23] MEDS: FOLIC ACID 1 MG TAB PO (09:29)
[2017-09-23] MEDS: FAMOTIDINE 20 MG INJ IV ×2 (09:30→20:14)
[2017-09-23] MEDS: CHLORHEXIDINE GLUCONATE 15 ML UD CUP MT ×2 (09:31→20:14)
[2017-09-23] MEDS: FUROSEMIDE 40 MG TAB PO (09:32)
[2017-09-23] MEDS: ENOXAPARIN 30 MG/0.3 ML SYG SC (09:35)
[2017-09-23] MEDS: TAMOXIFEN 10 MG TAB PO (09:35)
[2017-09-23] MEDS: ERTAPENEM SODIUM 1 GM in SOD CHLORIDE 0.9% 100 ML IVPB (16:19)
[2017-09-23] MEDS ORDERED: IOHEXOL 300MG/ML 150 ML BTL (20:26)
[2017-09-23] MEDS ORDERED: SOD CHLORIDE 0.9% 100 ML (20:26)
[2017-09-24] MEDS: HYDROmorphONE 2 MG/ML SYG IV ×8 (00:57→22:11)
[2017-09-24] MEDS: LORAZEPAM 2 MG INJ IV ×3 (04:51→18:34)
[2017-09-24] MEDS: VANCOMYCIN HCL 250 MG/5ML POSYG PO ×4 (05:58→23:55)
[2017-09-24] MEDS: KETOROLAC 30 MG INJ IV (05:58)
[2017-09-24] MEDS: CHLORHEXIDINE GLUCONATE 15 ML UD CUP MT ×2 (08:21→21:03)
[2017-09-24] MEDS: L ACIDOPHIL/B LACTIS/B LONGUM CAPSULE PO ×2 (08:22→21:04)
[2017-09-24] MEDS: FAMOTIDINE 20 MG INJ IV ×2 (08:22→21:04)
[2017-09-24] MEDS: FOLIC ACID 1 MG TAB PO (08:23)
[2017-09-24] MEDS: morphine (ER) 30 MG TAB PO ×2 (08:23→21:04)
[2017-09-24] MEDS: FLUCONAZOLE 100 MG TAB PO (08:23)
[2017-09-24] MEDS: FUROSEMIDE 40 MG TAB PO (08:24)
[2017-09-24] MEDS: TAMOXIFEN 10 MG TAB PO (08:25)
[2017-09-24] MEDS: ENOXAPARIN 30 MG/0.3 ML SYG SC (08:26)
[2017-09-24] MEDS: ERTAPENEM SODIUM 1 GM in SOD CHLORIDE 0.9% 100 ML IVPB (18:34)
[2017-09-25] MEDS: LORAZEPAM 2 MG INJ IV ×3 (00:35→12:30)
[2017-09-25] MEDS: HYDROmorphONE 2 MG/ML SYG IV ×5 (01:19→14:56)
[2017-09-25] MEDS: LEVOFLOXACIN 500 MG TAB PO (05:58)
[2017-09-25] MEDS: VANCOMYCIN HCL 250 MG/5ML POSYG PO ×2 (05:58→12:30)
[2017-09-25 06:08] LABS: ADD MAN DIFF? NO
[2017-09-25 06:13] LABS: WHITE BLOOD COUNT 5.4 10^3/ul (4.8-10.8)
[2017-09-25 06:13] LABS: BASOPHILS % 0.6 % (0.0-2.0); EOSINOPHILS # 0.1 10^3/ul (0.0-0.5); EOSINOPHILS % 1.8 % (0.0-7.0); HEMATOCRIT 26.1 % (37.0-47.0); HEMOGLOBIN 8.3 g/dl (12.0-16.0); LYMPHOCYTES # 0.8 10^3/ul (0.8-2.9); LYMPHOCYTES % 14.8 % (15.0-51.0); MEAN CORPUSCULAR HEMOGLOBIN 29.2 pg (29.0-33.0); MEAN CORPUSCULAR HGB CONC 31.8 g/dl (32.0-37.0); MEAN CORPUSCULAR VOLUME 91.9 fl (82.0-101.0); MEAN PLATELET VOLUME 9.7 fl (7.4-10.4); MONOCYTE # 0.8 10^3/ul (0.3-0.9); MONOCYTES % 15.1 % (0.0-11.0); NEUTROPHIL # 3.6 10^3/ul (1.6-7.5); NEUTROPHILS % 65.7 % (39.0-77.0); NUCLEATED RED BLOOD CELLS # 0.1 10^3/ul (0.0-0.0); NUCLEATED RED BLOOD CELLS% 1.8 /100WBC (0.0-0.0); PLATELET COUNT 330 10^3/UL (140-415); RED BLOOD COUNT 2.84 10^6/ul (4.20-5.40); RED CELL DISTRIBUTION WIDTH 18.9 % (11.5-14.5)
[2017-09-25 06:35] LABS: ANION GAP 12 (8-16); BLOOD UREA NITROGEN 9 mg/dl (7-20); CALCIUM 8.5 mg/dl (8.4-10.2); CARBON DIOXIDE 30 mmol/L (21-31); CHLORIDE 105 mmol/L (97-110); CREATININE 0.63 mg/dl (0.44-1.00); GLUCOSE 85 mg/dl (70-220); POTASSIUM 3.9 mmol/L (3.5-5.1); SODIUM 143 mmol/L (135-144)
[2017-09-25] MEDS: FAMOTIDINE 20 MG INJ IV (08:36)
[2017-09-25] MEDS: morphine (ER) 30 MG TAB PO (08:36)
[2017-09-25] MEDS: CHLORHEXIDINE GLUCONATE 15 ML UD CUP MT (08:37)
[2017-09-25] MEDS: FUROSEMIDE 40 MG TAB PO (08:37)
[2017-09-25] MEDS: L ACIDOPHIL/B LACTIS/B LONGUM CAPSULE PO (08:37)
[2017-09-25] MEDS: FLUCONAZOLE 100 MG TAB PO (08:37)
[2017-09-25] MEDS: FOLIC ACID 1 MG TAB PO (08:37)
[2017-09-25] MEDS: ENOXAPARIN 30 MG/0.3 ML SYG SC (08:44)
[2017-09-25] MEDS: TAMOXIFEN 10 MG TAB PO (08:44)
[2017-09-25] MEDS: metroNIDAZOLE 250 MG TAB PO ×2 (08:45→14:55)
[2017-09-25] MEDS: HEPARIN (100 UNITS/ML) 5 ML SYG CATHETER (15:34)
== END 2017-09-25 16:15 | disposition home or self-care (01) | DRG 872 ==
LOC: MS2 09-12 15:30 → E/R 17:46 → MS2 09-12 18:00 → MS3 19:55
DX: A41.9 Sepsis, unspecified organism (principal); J91.0 Malignant pleural effusion; C78.00 Secondary malignant neoplasm of unspecified lung; C78.7 Secondary malignant neoplasm of liver and intrahepatic bile duct; C79.51 Secondary malignant neoplasm of bone; A04.71 Enterocolitis due to Clostridium difficile, recurrent; M48.52XA Collapsed vertebra, not elsewhere classified, cervical region, initial encounter for fracture; M48.54XA Collapsed vertebra, not elsewhere classified, thoracic region, initial encounter for fracture; M48.56XA Collapsed vertebra, not elsewhere classified, lumbar region, initial encounter for fracture; B37.49 Other urogenital candidiasis; N39.0 Urinary tract infection, site not specified; C50.919 Malignant neoplasm of unspecified site of unspecified female breast; Z17.0 Estrogen receptor positive status [ER+]; E87.6 Hypokalemia; R09.02 Hypoxemia; B95.2 Enterococcus as the cause of diseases classified elsewhere; M79.604 Pain in right leg; K02.9 Dental caries, unspecified; Z87.891 Personal history of nicotine dependence; Z79.891 Long term (current) use of opiate analgesic; Z79.810 Long term (current) use of selective estrogen receptor modulators (SERMs)
CPT/HCPCS: 36415; 70486; 71045; 71275; 76604; 80048; 80053; 80202; 81001; 81025; 82550; 82553; 83605; 83880; 84484; 85025; 85610; 85730; 87040; 87075; 87086; 87400; 93005; 94640; 94664; 96374; 96375; 96376; 99285-25

== ENCOUNTER 2017-09-26 13:34 | Inpatient (IN) | payer MEDICAID ==
[2017-09-26 14:57] LABS: ADD MAN DIFF? NO
[2017-09-26 14:59] LABS: BASOPHILS % 0.4 % (0.0-2.0); EOSINOPHILS % 0.5 % (0.0-7.0); HEMATOCRIT 28.8 % (37.0-47.0); HEMOGLOBIN 9.2 g/dl (12.0-16.0); LYMPHOCYTES # 0.8 10^3/ul (0.8-2.9); LYMPHOCYTES % 9.9 % (15.0-51.0); MEAN CORPUSCULAR HEMOGLOBIN 28.7 pg (29.0-33.0); MEAN CORPUSCULAR HGB CONC 31.9 g/dl (32.0-37.0); MEAN CORPUSCULAR VOLUME 89.7 fl (82.0-101.0); MEAN PLATELET VOLUME 9.4 fl (7.4-10.4); MONOCYTE # 0.9 10^3/ul (0.3-0.9); MONOCYTES % 10.2 % (0.0-11.0); NEUTROPHIL # 6.6 10^3/ul (1.6-7.5); NEUTROPHILS % 78.5 % (39.0-77.0); NUCLEATED RED BLOOD CELLS # 0.1 10^3/ul (0.0-0.0); NUCLEATED RED BLOOD CELLS% 0.7 /100WBC (0.0-0.0); PLATELET COUNT 466 10^3/UL (140-415); RED BLOOD COUNT 3.21 10^6/ul (4.20-5.40); RED CELL DISTRIBUTION WIDTH 19.2 % (11.5-14.5)
[2017-09-26 14:59] LABS: WHITE BLOOD COUNT 8.4 10^3/ul (4.8-10.8)
[2017-09-26] MEDS: HYDROmorphONE 0.5 MG/0.5 ML SYG IV ×2 (15:01→16:18)
[2017-09-26 15:16] LABS: ANION GAP 15 (8-16); BLOOD UREA NITROGEN 11 mg/dl (7-20); CALCIUM 9.4 mg/dl (8.4-10.2); CARBON DIOXIDE 30 mmol/L (21-31); CHLORIDE 102 mmol/L (97-110); CREATININE 0.67 mg/dl (0.44-1.00); GLUCOSE 95 mg/dl (70-220); POTASSIUM 3.9 mmol/L (3.5-5.1); SODIUM 143 mmol/L (135-144)
[2017-09-26] MEDS: SOD CHLORIDE 0.9% 1,400 ML IV (16:19)
[2017-09-26 16:27] LABS: INR 0.99; PROTIME 13.2 Sec (11.9-14.9)
[2017-09-26 16:29] LABS: LACTIC ACID 0.9 mmol/L (0.5-2.0)
[2017-09-26] MEDS: LEVETIRACETAM 500 MG (PMX) 100 ML IVPB (16:43)
[2017-09-26 17:13] LABS: LACTIC ACID 1.6 mmol/L (0.5-2.0)
[2017-09-26] MEDS: CEFEPIME 1GM/50 ML (PMX) 50 ML IVPB (17:36)
[2017-09-26 17:42] LABS: ALANINE AMINOTRANSFERASE 34 IU/L (13-69); ALKALINE PHOSPHATASE 80 IU/L (42-121); ASPARTATE AMINO TRANSFERASE 44 IU/L (15-46); TOTAL PROTEIN 7.5 g/dl (6.1-8.1)
[2017-09-26] MEDS: VANCOMYCIN 1 GM (PMX) 250 ML IVPB (17:42)
[2017-09-26 17:56] LABS: TROPONIN-I < 0.012 ng/ml (0.00-0.12)
[2017-09-26] MEDS: LORAZEPAM 1 MG TAB PO (18:35)
[2017-09-26] MEDS: LORAZEPAM 2 MG INJ IV (18:41)
[2017-09-26] MEDS: HYDROmorphONE 2 MG/ML SYG IV ×2 (19:02→22:34)
[2017-09-26 19:09] LABS: LACTIC ACID 0.9 mmol/L (0.5-2.0)
[2017-09-26] MEDS ORDERED: ACETAMINOPHEN 325 MG TAB PO (21:00)
[2017-09-26] MEDS ORDERED: morphine 2 MG INJ IV (21:00)
[2017-09-26] MEDS: morphine (ER) 15 MG TAB PO (21:58)
[2017-09-26] MEDS: LEVETIRACETAM 750 MG TAB PO (22:37)
[2017-09-27] MEDS: HYDROmorphONE 2 MG/ML SYG IV ×9 (01:16→23:24)
[2017-09-27] MEDS: VANCOMYCIN HCL 250 MG/5ML POSYG PO ×4 (05:30→23:23)
[2017-09-27] MEDS: LORAZEPAM 2 MG INJ IV ×2 (05:30→12:01)
[2017-09-27 06:05] LABS: ADD MAN DIFF? NO
[2017-09-27 06:11] LABS: BASOPHILS % 0.3 % (0.0-2.0); EOSINOPHILS # 0.1 10^3/ul (0.0-0.5); EOSINOPHILS % 1.9 % (0.0-7.0); LYMPHOCYTES # 0.8 10^3/ul (0.8-2.9); MEAN CORPUSCULAR HEMOGLOBIN 29.3 pg (29.0-33.0); MEAN CORPUSCULAR VOLUME 91.6 fl (82.0-101.0); MEAN PLATELET VOLUME 9.3 fl (7.4-10.4); MONOCYTE # 0.5 10^3/ul (0.3-0.9); MONOCYTES % 14.1 % (0.0-11.0); NEUTROPHIL # 2.3 10^3/ul (1.6-7.5); NEUTROPHILS % 60.9 % (39.0-77.0); NUCLEATED RED BLOOD CELLS% 0.8 /100WBC (0.0-0.0); PLATELET COUNT 403 10^3/UL (140-415); RED BLOOD COUNT 2.73 10^6/ul (4.20-5.40); RED CELL DISTRIBUTION WIDTH 19.2 % (11.5-14.5)
[2017-09-27 06:11] LABS: WHITE BLOOD COUNT 3.8 10^3/ul (4.8-10.8)
[2017-09-27 06:45] LABS: ANION GAP 13 (8-16); BLOOD UREA NITROGEN 10 mg/dl (7-20); CALCIUM 8.4 mg/dl (8.4-10.2); CARBON DIOXIDE 28 mmol/L (21-31); CHLORIDE 107 mmol/L (97-110); CREATININE 0.68 mg/dl (0.44-1.00); GLUCOSE 102 mg/dl (70-220); POTASSIUM 3.7 mmol/L (3.5-5.1); SODIUM 144 mmol/L (135-144)
[2017-09-27] MEDS ORDERED: CEFEPIME 1GM/50 ML (PMX) 50 ML IVPB (09:00)
[2017-09-27] MEDS: LEVETIRACETAM 750 MG TAB PO ×2 (09:56→20:24)
[2017-09-27] MEDS: morphine (ER) 15 MG TAB PO ×2 (09:57→21:40)
[2017-09-27] MEDS: ONDANSETRON 4 MG INJ IV ×2 (09:57→17:07)
[2017-09-27] MEDS ORDERED: HYDROmorphONE 2 MG TAB PO (15:30)
[2017-09-27] MEDS ORDERED: HYDROmorphONE 2 MG/ML SYG IV (17:00)
[2017-09-28] MEDS: LORAZEPAM 2 MG INJ IV ×4 (00:31→22:40)
[2017-09-28] MEDS: HYDROmorphONE 2 MG/ML SYG IV ×7 (03:11→21:58)
[2017-09-28] MEDS: VANCOMYCIN HCL 250 MG/5ML POSYG PO ×3 (06:12→18:42)
[2017-09-28] MEDS: LEVETIRACETAM 750 MG TAB PO ×2 (09:30→21:15)
[2017-09-28] MEDS: ONDANSETRON 4 MG INJ IV (09:30)
[2017-09-28] MEDS: morphine (ER) 15 MG TAB PO ×2 (09:30→21:15)
[2017-09-29] MEDS: VANCOMYCIN HCL 250 MG/5ML POSYG PO ×5 (00:55→23:52)
[2017-09-29] MEDS: HYDROmorphONE 2 MG/ML SYG IV ×8 (00:57→23:05)
[2017-09-29] MEDS: LORAZEPAM 2 MG INJ IV ×4 (05:47→23:52)
[2017-09-29] MEDS: LEVETIRACETAM 750 MG TAB PO ×2 (09:17→21:13)
[2017-09-29] MEDS: morphine (ER) 15 MG TAB PO ×2 (09:17→21:13)
[2017-09-30] MEDS: HYDROmorphONE 2 MG/ML SYG IV ×8 (02:00→22:51)
[2017-09-30] MEDS: VANCOMYCIN HCL 250 MG/5ML POSYG PO ×3 (06:06→18:00)
[2017-09-30] MEDS: LORAZEPAM 2 MG INJ IV ×3 (06:07→18:04)
[2017-09-30] MEDS: LEVETIRACETAM 750 MG TAB PO ×2 (08:08→20:33)
[2017-09-30] MEDS: ONDANSETRON 4 MG INJ IV (08:43)
[2017-09-30] MEDS: morphine (ER) 15 MG TAB PO ×2 (09:17→20:34)
[2017-09-30 14:55] LABS: ADD MAN DIFF? NO
[2017-09-30 14:58] LABS: WHITE BLOOD COUNT 7.4 10^3/ul (4.8-10.8)
[2017-09-30 14:58] LABS: BASOPHILS % 0.5 % (0.0-2.0); EOSINOPHILS # 0.1 10^3/ul (0.0-0.5); EOSINOPHILS % 0.9 % (0.0-7.0); HEMATOCRIT 25.1 % (37.0-47.0); HEMOGLOBIN 8.2 g/dl (12.0-16.0); LYMPHOCYTES # 0.9 10^3/ul (0.8-2.9); LYMPHOCYTES % 12.8 % (15.0-51.0); MEAN CORPUSCULAR HEMOGLOBIN 29.9 pg (29.0-33.0); MEAN CORPUSCULAR HGB CONC 32.7 g/dl (32.0-37.0); MEAN CORPUSCULAR VOLUME 91.6 fl (82.0-101.0); MONOCYTE # 0.6 10^3/ul (0.3-0.9); MONOCYTES % 8.5 % (0.0-11.0); NEUTROPHIL # 5.7 10^3/ul (1.6-7.5); PLATELET COUNT 464 10^3/UL (140-415); RED BLOOD COUNT 2.74 10^6/ul (4.20-5.40); RED CELL DISTRIBUTION WIDTH 19.1 % (11.5-14.5)
[2017-09-30 15:24] LABS: ANION GAP 11 (8-16); BLOOD UREA NITROGEN 6 mg/dl (7-20); CARBON DIOXIDE 32 mmol/L (21-31); CHLORIDE 104 mmol/L (97-110); CREATININE 0.64 mg/dl (0.44-1.00); GLUCOSE 95 mg/dl (70-220); SODIUM 143 mmol/L (135-144)
[2017-09-30] MEDS ORDERED: METHYLPREDNISOLONE 125 MG INJ IV (16:00)
[2017-09-30] MEDS ORDERED: DIPHENHYDRAMINE 50 MG INJ IV (16:00)
[2017-10-01] MEDS: VANCOMYCIN HCL 250 MG/5ML POSYG PO ×4 (00:27→18:30)
[2017-10-01] MEDS: LORAZEPAM 2 MG INJ IV ×4 (00:27→21:12)
[2017-10-01] MEDS: HYDROmorphONE 2 MG/ML SYG IV ×8 (02:28→22:26)
[2017-10-01] MEDS: morphine (ER) 15 MG TAB PO ×2 (09:17→20:35)
[2017-10-01] MEDS: LEVETIRACETAM 750 MG TAB PO ×2 (09:17→20:35)
[2017-10-01] MEDS: ONDANSETRON INJ 16 MG in SOD CHLORIDE 0.9% 50 ML IV (11:59)
[2017-10-01] MEDS: DEXAMETHASONE 10 MG/ML 1 ML INJ IV (11:59)
[2017-10-01] MEDS: DIPHENHYDRAMINE 50 MG INJ IV (11:59)
[2017-10-01] MEDS: FUROSEMIDE 40 MG TAB PO (12:04)
[2017-10-01] MEDS ORDERED: HYDROmorphONE 2 MG/ML SYG IV (13:00)
[2017-10-01] MEDS: DOCETAXEL IV (13:40)
[2017-10-01] MEDS: SOD CHLORIDE 0.9% IV ×2 (13:40→16:17)
[2017-10-01] MEDS: AL HYDROX/MG HYDROX/SIMETH 30 ML CUP PO (15:46)
[2017-10-01] MEDS: TRASTUZUMAB IV (16:17)
[2017-10-02] MEDS: VANCOMYCIN HCL 250 MG/5ML POSYG PO ×5 (00:22→23:10)
[2017-10-02] MEDS: HYDROmorphONE 2 MG/ML SYG IV ×12 (00:23→23:06)
[2017-10-02] MEDS: LORAZEPAM 2 MG INJ IV ×3 (03:07→18:21)
[2017-10-02] MEDS: LEVETIRACETAM 750 MG TAB PO ×2 (08:58→21:06)
[2017-10-02] MEDS: FUROSEMIDE 40 MG TAB PO (08:59)
[2017-10-02] MEDS: morphine (ER) 15 MG TAB PO ×2 (09:00→21:07)
[2017-10-02] MEDS: ONDANSETRON 4 MG INJ IV (23:03)
[2017-10-03] MEDS: HYDROmorphONE 2 MG/ML SYG IV ×11 (01:08→22:11)
[2017-10-03] MEDS: LORAZEPAM 2 MG INJ IV ×4 (04:32→22:41)
[2017-10-03] MEDS: VANCOMYCIN HCL 250 MG/5ML POSYG PO ×3 (05:38→20:11)
[2017-10-03] MEDS: ONDANSETRON 4 MG INJ IV (08:23)
[2017-10-03] MEDS: FUROSEMIDE 40 MG TAB PO (09:11)
[2017-10-03] MEDS: LEVETIRACETAM 750 MG TAB PO ×2 (09:11→20:05)
[2017-10-03] MEDS: morphine (ER) 15 MG TAB PO ×2 (09:11→20:05)
[2017-10-03] MEDS: METOCLOPRAMIDE 10 MG INJ IV ×2 (12:40→17:58)
[2017-10-04] MEDS: METOCLOPRAMIDE 10 MG INJ IV ×4 (00:09→18:00)
[2017-10-04] MEDS: HYDROmorphONE 2 MG/ML SYG IV ×12 (00:11→22:47)
[2017-10-04] MEDS: LORAZEPAM 2 MG INJ IV ×3 (04:45→18:01)
[2017-10-04 05:44] LABS: ADD MAN DIFF? NO
[2017-10-04 05:46] LABS: ABNORMAL IP MESSAGE 1; BASOPHILS % 0.3 % (0.0-2.0); EOSINOPHILS % 1.3 % (0.0-7.0); HEMATOCRIT 20.3 % (37.0-47.0); LYMPHOCYTES # 0.5 10^3/ul (0.8-2.9); LYMPHOCYTES % 14.4 % (15.0-51.0); MEAN CORPUSCULAR HEMOGLOBIN 29.3 pg (29.0-33.0); MEAN CORPUSCULAR HGB CONC 32.5 g/dl (32.0-37.0); MEAN CORPUSCULAR VOLUME 90.2 fl (82.0-101.0); MONOCYTE # 0.2 10^3/ul (0.3-0.9); MONOCYTES % 5.1 % (0.0-11.0); NEUTROPHIL # 2.5 10^3/ul (1.6-7.5); NEUTROPHILS % 78.6 % (39.0-77.0); PLATELET COUNT 428 10^3/UL (140-415); RED BLOOD COUNT 2.25 10^6/ul (4.20-5.40); RED CELL DISTRIBUTION WIDTH 19.4 % (11.5-14.5)
[2017-10-04 05:46] LABS: WHITE BLOOD COUNT 3.1 10^3/ul (4.8-10.8)
[2017-10-04 06:05] LABS: ANION GAP 15 (8-16); BLOOD UREA NITROGEN 12 mg/dl (7-20); CALCIUM 8.8 mg/dl (8.4-10.2); CARBON DIOXIDE 29 mmol/L (21-31); CHLORIDE 101 mmol/L (97-110); CREATININE 0.56 mg/dl (0.44-1.00); GLUCOSE 87 mg/dl (70-220); POTASSIUM 3.9 mmol/L (3.5-5.1); SODIUM 141 mmol/L (135-144)
[2017-10-04 06:19] LABS: POSITIVE DIFF @See below
[2017-10-04 06:20] LABS: HEMOGLOBIN 6.6 g/dl (12.0-16.0)
[2017-10-04] MEDS: LEVETIRACETAM 750 MG TAB PO ×2 (08:20→20:47)
[2017-10-04] MEDS: FUROSEMIDE 40 MG TAB PO (08:22)
[2017-10-04] MEDS: morphine (ER) 15 MG TAB PO ×2 (09:34→20:47)
[2017-10-04] MEDS: VANCOMYCIN HCL 250 MG/5ML POSYG PO ×2 (09:36→20:46)
[2017-10-04 14:57] LABS: IMMEDIATE SPIN CROSSMATCH 1 3
[2017-10-04] MEDS: FILGRASTIM 300 MCG INJ SC (18:02)
[2017-10-05] MEDS: HYDROmorphONE 2 MG/ML SYG IV ×11 (00:43→23:00)
[2017-10-05] MEDS: LORAZEPAM 2 MG INJ IV ×4 (01:44→23:53)
[2017-10-05 05:57] LABS: ABNORMAL IP MESSAGE 1; HEMATOCRIT 31.5 % (37.0-47.0); HEMOGLOBIN 10.3 g/dl (12.0-16.0); MEAN CORPUSCULAR HEMOGLOBIN 28.6 pg (29.0-33.0); MEAN CORPUSCULAR HGB CONC 32.7 g/dl (32.0-37.0); MEAN CORPUSCULAR VOLUME 87.5 fl (82.0-101.0); MEAN PLATELET VOLUME 9.6 fl (7.4-10.4); PLATELET COUNT 308 10^3/UL (140-415); RED CELL DISTRIBUTION WIDTH 19.5 % (11.5-14.5)
[2017-10-05 05:57] LABS: WHITE BLOOD COUNT 16.1 10^3/ul (4.8-10.8)
[2017-10-05 05:58] LABS: ADD MAN DIFF? YES; POSITIVE DIFF @See below
[2017-10-05 07:51] LABS: BAND NEUTROPHILS #M 6.1 10^3/ul (0.0-0.6); BAND NEUTROPHILS % (M) 38 % (0-4); EOSINOPHILS % (M) 1 % (0-7); GIANT THROMBO% (M) 1 % (0-0); MONOCYTE #M 0.6 10^3/ul (0.3-0.9); MONOCYTES % (M) 4 % (0-11); PLATELET ESTIMATE NORMAL; RBC MORPHOLOGY COMMENT @See below; REACTIVE LYMPHOCYTES #M 0.4 10^3/ul (0.0-0.0); REACTIVE LYMPHOCYTES% (M) 3 % (0-0); SEG NEUT #M 9.7 10^3/ul (1.6-7.5); SEGMENTED NEUTROPHILS (M) % 54 % (39-77); SMUDGE%M 9 % (0-0); WBC MORPHOLOGY COMMENT @See below
[2017-10-05] MEDS: LEVETIRACETAM 750 MG TAB PO ×2 (08:28→21:01)
[2017-10-05] MEDS: FUROSEMIDE 40 MG TAB PO (08:29)
[2017-10-05] MEDS: morphine (ER) 15 MG TAB PO ×2 (08:30→21:01)
[2017-10-05] MEDS: VANCOMYCIN HCL 250 MG/5ML POSYG PO ×2 (09:00→21:02)
[2017-10-05] MEDS: FILGRASTIM 300 MCG INJ SC (16:53)
[2017-10-06] MEDS: HYDROmorphONE 2 MG/ML SYG IV ×11 (01:01→22:37)
[2017-10-06 05:47] LABS: WHITE BLOOD COUNT 8.4 10^3/ul (4.8-10.8)
[2017-10-06 05:47] LABS: ABNORMAL IP MESSAGE 1; HEMOGLOBIN 10.5 g/dl (12.0-16.0); MEAN CORPUSCULAR HEMOGLOBIN 28.8 pg (29.0-33.0); MEAN CORPUSCULAR HGB CONC 32.8 g/dl (32.0-37.0); MEAN CORPUSCULAR VOLUME 87.9 fl (82.0-101.0); MEAN PLATELET VOLUME 9.5 fl (7.4-10.4); PLATELET COUNT 282 10^3/UL (140-415); RED BLOOD COUNT 3.64 10^6/ul (4.20-5.40); RED CELL DISTRIBUTION WIDTH 19.2 % (11.5-14.5)
[2017-10-06 06:06] LABS: POSITIVE DIFF @See below
[2017-10-06 06:07] LABS: ADD MAN DIFF? YES
[2017-10-06 07:30] LABS: ANISOCYTOSIS 1+ (0-0); BAND NEUTROPHILS #M 3.4 10^3/ul (0.0-0.6); BAND NEUTROPHILS % (M) 41 % (0-4); EOSINOPHILS % (M) 1 % (0-7); LYMPHOCYTES #M 0.6 10^3/ul (0.8-2.9); LYMPHOCYTES % (M) 8 % (15-51); MICROCYTOSIS 1+ (0-0); MONOCYTE #M 0.2 10^3/ul (0.3-0.9); MONOCYTES % (M) 3 % (0-11); PLATELET ESTIMATE NORMAL; POLYCHROMASIA 1+ (0-0); RBC MORPHOLOGY COMMENT @See below; SEG NEUT #M 4.2 10^3/ul (1.6-7.5); SEGMENTED NEUTROPHILS (M) % 47 % (39-77); SMUDGE%M 11 % (0-0); WBC MORPHOLOGY COMMENT @See below
[2017-10-06] MEDS: morphine (ER) 15 MG TAB PO ×2 (08:44→20:33)
[2017-10-06] MEDS: LORAZEPAM 2 MG INJ IV ×3 (08:44→21:31)
[2017-10-06] MEDS: LEVETIRACETAM 750 MG TAB PO ×2 (08:44→20:33)
[2017-10-06] MEDS: FUROSEMIDE 40 MG TAB PO (08:47)
[2017-10-06] MEDS: VANCOMYCIN HCL 250 MG/5ML POSYG PO ×2 (08:48→20:33)
[2017-10-06] MEDS: FILGRASTIM 300 MCG INJ SC (18:24)
[2017-10-07] MEDS: HYDROmorphONE 2 MG/ML SYG IV ×12 (00:51→23:51)
[2017-10-07 05:49] LABS: ABNORMAL IP MESSAGE 1; HEMATOCRIT 33.4 % (37.0-47.0); HEMOGLOBIN 10.7 g/dl (12.0-16.0); MEAN CORPUSCULAR HEMOGLOBIN 28.4 pg (29.0-33.0); MEAN CORPUSCULAR VOLUME 88.6 fl (82.0-101.0); MEAN PLATELET VOLUME 9.9 fl (7.4-10.4); PLATELET COUNT 283 10^3/UL (140-415); RED BLOOD COUNT 3.77 10^6/ul (4.20-5.40); RED CELL DISTRIBUTION WIDTH 18.5 % (11.5-14.5)
[2017-10-07 05:49] LABS: WHITE BLOOD COUNT 5.9 10^3/ul (4.8-10.8)
[2017-10-07 05:53] LABS: POSITIVE DIFF @See below
[2017-10-07 05:54] LABS: ADD MAN DIFF? YES
[2017-10-07 06:15] LABS: ANION GAP 14 (8-16); BLOOD UREA NITROGEN 13 mg/dl (7-20); CALCIUM 9.3 mg/dl (8.4-10.2); CARBON DIOXIDE 29 mmol/L (21-31); CHLORIDE 103 mmol/L (97-110); CREATININE 0.65 mg/dl (0.44-1.00); GLUCOSE 101 mg/dl (70-220); SODIUM 142 mmol/L (135-144)
[2017-10-07] MEDS: LORAZEPAM 2 MG INJ IV ×3 (08:32→21:14)
[2017-10-07] MEDS: morphine (ER) 15 MG TAB PO ×2 (09:19→21:14)
[2017-10-07] MEDS: LEVETIRACETAM 750 MG TAB PO ×2 (09:19→21:13)
[2017-10-07 09:33] LABS: ANISOCYTOSIS 2+ (0-0); BAND NEUTROPHILS #M 3.5 10^3/ul (0.0-0.6); BAND NEUTROPHILS % (M) 60 % (0-4); BASOPHIL #M 0.1 10^3/ul (0.0-0.0); BASOPHILS % (M) 2 % (0-2); ERYTHROBLAST% (NRBC) (M) 1 % (0-0); GIANT THROMBO% (M) 1 % (0-0); LYMPHOCYTES #M 0.2 10^3/ul (0.8-2.9); LYMPHOCYTES % (M) 4 % (15-51); METAMYELOCYTES %M 1 % (0-0); MICROCYTOSIS 1+ (0-0); MONOCYTE #M 0.3 10^3/ul (0.3-0.9); MONOCYTES % (M) 6 % (0-11); MYELOCYTES % (M) 1 % (0-0); PLATELET ESTIMATE NORMAL; POIKILOCYTOSIS 1+ (0-0); POLYCHROMASIA 2+ (0-0); RBC MORPHOLOGY COMMENT @See below; REACTIVE LYMPHOCYTES #M 0.1 10^3/ul (0.0-0.0); REACTIVE LYMPHOCYTES% (M) 3 % (0-0); SEG NEUT #M 1.6 10^3/ul (1.6-7.5); SEGMENTED NEUTROPHILS (M) % 23 % (39-77); WBC MORPHOLOGY COMMENT @See below
[2017-10-07] MEDS: FUROSEMIDE 40 MG TAB PO (09:39)
[2017-10-07] MEDS: VANCOMYCIN HCL 250 MG/5ML POSYG PO ×2 (10:56→21:13)
[2017-10-07] MEDS: FILGRASTIM 300 MCG INJ SC (17:57)
[2017-10-08] MEDS: HYDROmorphONE 2 MG/ML SYG IV ×11 (01:51→22:45)
[2017-10-08] MEDS: LORAZEPAM 2 MG INJ IV ×4 (03:18→21:39)
[2017-10-08] MEDS: LEVETIRACETAM 750 MG TAB PO ×2 (08:27→20:42)
[2017-10-08] MEDS: FUROSEMIDE 20 MG TAB PO (08:27)
[2017-10-08] MEDS: morphine (ER) 15 MG TAB PO ×2 (08:29→20:42)
[2017-10-08] MEDS: VANCOMYCIN HCL 250 MG/5ML POSYG PO ×2 (08:29→20:43)
[2017-10-08] MEDS: FILGRASTIM 300 MCG INJ SC (18:01)
[2017-10-09] MEDS: HYDROmorphONE 2 MG/ML SYG IV ×12 (00:48→23:04)
[2017-10-09] MEDS: LORAZEPAM 2 MG INJ IV ×4 (03:53→23:30)
[2017-10-09] MEDS: VANCOMYCIN HCL 250 MG/5ML POSYG PO ×2 (04:00→20:53)
[2017-10-09] MEDS: FUROSEMIDE 20 MG TAB PO (08:50)
[2017-10-09] MEDS: LEVETIRACETAM 750 MG TAB PO ×2 (08:51→20:53)
[2017-10-09] MEDS: morphine (ER) 15 MG TAB PO ×2 (08:51→20:53)
[2017-10-09] MEDS: METOCLOPRAMIDE 10 MG INJ IV ×2 (10:12→16:21)
[2017-10-09 10:32] LABS: ANION GAP 14 (8-16); BLOOD UREA NITROGEN 6 mg/dl (7-20); CALCIUM 9.2 mg/dl (8.4-10.2); CARBON DIOXIDE 29 mmol/L (21-31); CHLORIDE 104 mmol/L (97-110); CREATININE 0.64 mg/dl (0.44-1.00); GLUCOSE 104 mg/dl (70-220); POTASSIUM 3.9 mmol/L (3.5-5.1); SODIUM 143 mmol/L (135-144)
[2017-10-09 10:57] LABS: ABNORMAL IP MESSAGE 1; HEMATOCRIT 33.9 % (37.0-47.0); HEMOGLOBIN 10.8 g/dl (12.0-16.0); MEAN CORPUSCULAR HEMOGLOBIN 28.4 pg (29.0-33.0); MEAN CORPUSCULAR HGB CONC 31.9 g/dl (32.0-37.0); MEAN CORPUSCULAR VOLUME 89.2 fl (82.0-101.0); MEAN PLATELET VOLUME 9.8 fl (7.4-10.4); NUCLEATED RED BLOOD CELLS% 0.5 /100WBC (0.0-0.0); PLATELET COUNT 320 10^3/UL (140-415); RED CELL DISTRIBUTION WIDTH 18.6 % (11.5-14.5)
[2017-10-09 10:57] LABS: WHITE BLOOD COUNT 21.1 10^3/ul (4.8-10.8)
[2017-10-09 10:58] LABS: POSITIVE DIFF @See below
[2017-10-09 10:59] LABS: ADD MAN DIFF? YES
[2017-10-09 11:33] LABS: ANISOCYTOSIS 1+ (0-0); BAND NEUTROPHILS #M 6.3 10^3/ul (0.0-0.6); BAND NEUTROPHILS % (M) 30 % (0-4); BASOPHIL #M 0.2 10^3/ul (0.0-0.0); BASOPHILS % (M) 1 % (0-2); EOSINOPHILS % (M) 1 % (0-7); GIANT THROMBO% (M) 4 % (0-0); LYMPHOCYTES #M 1.4 10^3/ul (0.8-2.9); LYMPHOCYTES % (M) 7 % (15-51); METAMYELOCYTES #M 0.2 10^3/ul (0.0-0.0); METAMYELOCYTES %M 1 % (0-0); MICROCYTOSIS 1+ (0-0); MONOCYTE #M 2.7 10^3/ul (0.3-0.9); MONOCYTES % (M) 13 % (0-11); MYELOCYTES #M 1.6 10^3/ul (0.0-0.0); MYELOCYTES % (M) 8 % (0-0); PLATELET ESTIMATE NORMAL; PROMYELOCYTES #M 1.8 10^3/ul (0-0); PROMYELOCYTES % (M) 9 % (0-0); RBC MORPHOLOGY COMMENT @See below; REACTIVE LYMPHOCYTES #M 0.6 10^3/ul (0.0-0.0); REACTIVE LYMPHOCYTES% (M) 3 % (0-0); SEGMENTED NEUTROPHILS (M) % 27 % (39-77); SMUDGE%M 18 % (0-0); WBC MORPHOLOGY COMMENT @See below
[2017-10-10] MEDS: HYDROmorphONE 2 MG/ML SYG IV ×12 (00:59→23:09)
[2017-10-10 05:34] LABS: ABNORMAL IP MESSAGE 1; HEMATOCRIT 32.3 % (37.0-47.0); HEMOGLOBIN 10.3 g/dl (12.0-16.0); MEAN CORPUSCULAR HEMOGLOBIN 28.7 pg (29.0-33.0); MEAN CORPUSCULAR HGB CONC 31.9 g/dl (32.0-37.0); MEAN PLATELET VOLUME 10.1 fl (7.4-10.4); NUCLEATED RED BLOOD CELLS% 0.8 /100WBC (0.0-0.0); PLATELET COUNT 327 10^3/UL (140-415); RED BLOOD COUNT 3.59 10^6/ul (4.20-5.40); RED CELL DISTRIBUTION WIDTH 18.6 % (11.5-14.5)
[2017-10-10 05:36] LABS: POSITIVE DIFF @See below
[2017-10-10 05:37] LABS: ADD MAN DIFF? YES
[2017-10-10 06:00] LABS: ANION GAP 15 (8-16); BLOOD UREA NITROGEN 5 mg/dl (7-20); CALCIUM 8.8 mg/dl (8.4-10.2); CARBON DIOXIDE 29 mmol/L (21-31); CHLORIDE 105 mmol/L (97-110); CREATININE 0.63 mg/dl (0.44-1.00); GLUCOSE 124 mg/dl (70-220); POTASSIUM 3.7 mmol/L (3.5-5.1); SODIUM 145 mmol/L (135-144)
[2017-10-10] MEDS: LORAZEPAM 2 MG INJ IV ×3 (06:11→18:20)
[2017-10-10] MEDS: VANCOMYCIN HCL 250 MG/5ML POSYG PO ×2 (08:26→21:08)
[2017-10-10] MEDS: LEVETIRACETAM 750 MG TAB PO ×2 (08:26→21:08)
[2017-10-10] MEDS: FUROSEMIDE 20 MG TAB PO (08:26)
[2017-10-10] MEDS: morphine (ER) 15 MG TAB PO ×2 (08:27→21:08)
[2017-10-10 13:47] LABS: ANISOCYTOSIS 1+ (0-0); BAND NEUTROPHILS #M 7.2 10^3/ul (0.0-0.6); BAND NEUTROPHILS % (M) 30 % (0-4); EOSINOPHILS % (M) 1 % (0-7); ERYTHROBLAST% (NRBC) (M) 1 % (0-0); GIANT THROMBO% (M) 3 % (0-0); LYMPHOCYTES #M 1.4 10^3/ul (0.8-2.9); LYMPHOCYTES % (M) 6 % (15-51); METAMYELOCYTES #M 0.4 10^3/ul (0.0-0.0); METAMYELOCYTES %M 2 % (0-0); MICROCYTOSIS 1+ (0-0); MONOCYTE #M 1.6 10^3/ul (0.3-0.9); MONOCYTES % (M) 7 % (0-11); MYELOCYTES #M 2.8 10^3/ul (0.0-0.0); MYELOCYTES % (M) 12 % (0-0); PLATELET ESTIMATE NORMAL; PLATELET MORPHOLOGY COMMENT @See below; POIKILOCYTOSIS 1+ (0-0); POLYCHROMASIA 3+ (0-0); PROMYELOCYTES #M 0.9 10^3/ul (0-0); PROMYELOCYTES % (M) 4 % (0-0); REACTIVE LYMPHOCYTES #M 0.4 10^3/ul (0.0-0.0); REACTIVE LYMPHOCYTES% (M) 2 % (0-0); SEG NEUT #M 10.6 10^3/ul (1.6-7.5); SEGMENTED NEUTROPHILS (M) % 37 % (39-77); SMUDGE%M 14 % (0-0)
[2017-10-10] MEDS: ONDANSETRON 4 MG INJ IV (14:58)
[2017-10-11] MEDS: LORAZEPAM 2 MG INJ IV ×3 (00:22→12:51)
[2017-10-11] MEDS: HYDROmorphONE 2 MG/ML SYG IV ×9 (01:14→14:53)
[2017-10-11] MEDS ORDERED: HYDROmorphONE 4 MG TAB PO (07:00)
[2017-10-11] MEDS: LEVETIRACETAM 750 MG TAB PO (09:29)
[2017-10-11] MEDS: morphine (ER) 15 MG TAB PO (09:29)
[2017-10-11] MEDS: VANCOMYCIN HCL 250 MG/5ML POSYG PO (09:45)
[2017-10-11] MEDS: FUROSEMIDE 20 MG TAB PO (12:28)
== END 2017-10-11 16:30 | disposition home or self-care (01) | DRG 101 ==
LOC: MS1 09-28 21:49 → E/R 13:34 → TEL 19:13
PROC: 30233N1 Transfusion of Nonautologous Red Blood Cells into Peripheral Vein, Percutaneous Approach (ICD-10-PCS; principal; 2017-10-04)
DX: R56.9 Unspecified convulsions (principal); J90 Pleural effusion, not elsewhere classified; C78.00 Secondary malignant neoplasm of unspecified lung; C78.7 Secondary malignant neoplasm of liver and intrahepatic bile duct; C79.51 Secondary malignant neoplasm of bone; C79.89 Secondary malignant neoplasm of other specified sites; J98.11 Atelectasis; B96.7 Clostridium perfringens [C. perfringens] as the cause of diseases classified elsewhere; D70.1 Agranulocytosis secondary to cancer chemotherapy; D64.9 Anemia, unspecified; D63.0 Anemia in neoplastic disease; C50.919 Malignant neoplasm of unspecified site of unspecified female breast; K52.9 Noninfective gastroenteritis and colitis, unspecified; K04.5 Chronic apical periodontitis; R09.89 Other specified symptoms and signs involving the circulatory and respiratory systems; Z88.1 Allergy status to other antibiotic agents; Z92.21 Personal history of antineoplastic chemotherapy; Z87.440 Personal history of urinary (tract) infections
CPT/HCPCS: 36415; 36430; 70552; 71045; 80048; 80076; 83605; 84484; 85025; 85610; 85730; 86850; 86900; 86901; 86920; 87040; 87081; 93005; 95819; 96374; 96375; 96376; 99285-25; J9355

== ENCOUNTER 2017-10-12 10:55 | Emergency (ER) | payer MEDICAID ==
[2017-10-12] MEDS: HYDROmorphONE 0.5 MG/0.5 ML SYG IV ×2 (12:44→17:22)
[2017-10-12] MEDS: SODIUM CHLORIDE 0.9% 1L BAG IV* (12:44)
[2017-10-12 12:55] LABS: ABNORMAL IP MESSAGE 1; HEMATOCRIT 37.4 % (37.0-47.0); HEMOGLOBIN 12.2 g/dl (12.0-16.0); MEAN CORPUSCULAR HEMOGLOBIN 28.8 pg (29.0-33.0); MEAN CORPUSCULAR HGB CONC 32.6 g/dl (32.0-37.0); MEAN CORPUSCULAR VOLUME 88.2 fl (82.0-101.0); MEAN PLATELET VOLUME 9.4 fl (7.4-10.4); NUCLEATED RED BLOOD CELLS% 0.3 /100WBC (0.0-0.0); PLATELET COUNT 329 10^3/UL (140-415); RED BLOOD COUNT 4.24 10^6/ul (4.20-5.40); RED CELL DISTRIBUTION WIDTH 18.7 % (11.5-14.5)
[2017-10-12 12:55] LABS: WHITE BLOOD COUNT 15.6 10^3/ul (4.8-10.8)
[2017-10-12 12:57] LABS: ADD MAN DIFF? YES; POSITIVE DIFF @See below
[2017-10-12 13:05] LABS: LACTIC ACID 0.7 mmol/L (0.5-2.0)
[2017-10-12 13:06] LABS: ALANINE AMINOTRANSFERASE 39 IU/L (13-69); ALBUMIN 3.9 g/dl (3.3-4.9); ALBUMIN/GLOBULIN RATIO 0.97; ALKALINE PHOSPHATASE 136 IU/L (42-121); ANION GAP 17 (8-16); ASPARTATE AMINO TRANSFERASE 49 IU/L (15-46); BLOOD UREA NITROGEN 6 mg/dl (7-20); CALCIUM 9.7 mg/dl (8.4-10.2); CARBON DIOXIDE 28 mmol/L (21-31); CHLORIDE 104 mmol/L (97-110); CREATININE 0.63 mg/dl (0.44-1.00); GLUCOSE 103 mg/dl (70-220); POTASSIUM 4.1 mmol/L (3.5-5.1); SODIUM 145 mmol/L (135-144); TOTAL PROTEIN 7.9 g/dl (6.1-8.1)
[2017-10-12 13:11] LABS: INR 1.06; PROTIME 13.9 Sec (11.9-14.9); PT RATIO 1.1
[2017-10-12 13:12] LABS: PARTIAL THROMBOPLASTIN TIME 31.7 Sec (25.0-35.0)
[2017-10-12 13:18] LABS: TROPONIN-I < 0.012 ng/ml (0.00-0.12)
[2017-10-12] MEDS: ONDANSETRON 4 MG INJ IV (13:29)
[2017-10-12 13:41] LABS: ANISOCYTOSIS 1+ (0-0); BAND NEUTROPHILS #M 2.1 10^3/ul (0.0-0.6); BAND NEUTROPHILS % (M) 14 % (0-4); ERYTHROBLAST% (NRBC) (M) 1 % (0-0); GIANT THROMBO% (M) 2 % (0-0); LYMPHOCYTES #M 0.3 10^3/ul (0.8-2.9); LYMPHOCYTES % (M) 2 % (15-51); METAMYELOCYTES #M 0.9 10^3/ul (0.0-0.0); METAMYELOCYTES %M 6 % (0-0); MONOCYTE #M 1.2 10^3/ul (0.3-0.9); MONOCYTES % (M) 8 % (0-11); MYELOCYTES #M 0.6 10^3/ul (0.0-0.0); MYELOCYTES % (M) 4 % (0-0); PLATELET ESTIMATE NORMAL; POLYCHROMASIA 1+ (0-0); SEG NEUT #M 10.5 10^3/ul (1.6-7.5); SEGMENTED NEUTROPHILS (M) % 65 % (39-77); SMUDGE%M 1 % (0-0)
[2017-10-12] MEDS: HYDROmorphONE 4 MG TAB PO (14:47)
[2017-10-12] MEDS: VANCOMYCIN HCL 250 MG/5ML POSYG PO (14:47)
[2017-10-12] MEDS: LEVETIRACETAM 750 MG TAB PO (14:47)
== END 2017-10-12 17:39 | disposition home or self-care (01) ==
LOC: E/R 10:55
DX: R10.30 Lower abdominal pain, unspecified (principal); J90 Pleural effusion, not elsewhere classified; Z86.19 Personal history of other infectious and parasitic diseases
CPT/HCPCS: 36415; 71045; 80053; 83605; 84484; 85025; 85610; 85730; 87040; 87045; 87075; 93005; 96374; 96375; 96376; 99285-25

== ENCOUNTER 2017-10-27 09:42 | Inpatient (IN) | payer MEDICAID ==
[2017-10-27] MEDS: ONDANSETRON (ODT) 4 MG TAB ODT (10:14)
[2017-10-27] MEDS: BELLADONNA/PHENOBARBITAL TAB PO (10:14)
[2017-10-27] MEDS: HYDROmorphONE 2 MG/ML SYG IM (10:15)
[2017-10-27] MEDS: LIDOCAINE/MYLANTA 40 ML BTL PO (10:40)
[2017-10-27 11:22] LABS: ADD MAN DIFF? NO
[2017-10-27 11:23] LABS: WHITE BLOOD COUNT 16.7 10^3/ul (4.8-10.8)
[2017-10-27 11:23] LABS: BASOPHIL # 0.1 10^3/ul (0.0-0.1); BASOPHILS % 0.4 % (0.0-2.0); EOSINOPHILS % 0.2 % (0.0-7.0); HEMOGLOBIN 11.7 g/dl (12.0-16.0); LYMPHOCYTES # 0.6 10^3/ul (0.8-2.9); LYMPHOCYTES % 3.7 % (15.0-51.0); MEAN CORPUSCULAR HEMOGLOBIN 29.2 pg (29.0-33.0); MEAN CORPUSCULAR HGB CONC 31.6 g/dl (32.0-37.0); MEAN CORPUSCULAR VOLUME 92.3 fl (82.0-101.0); MEAN PLATELET VOLUME 9.7 fl (7.4-10.4); MONOCYTE # 0.5 10^3/ul (0.3-0.9); MONOCYTES % 3.2 % (0.0-11.0); NEUTROPHIL # 15.3 10^3/ul (1.6-7.5); NEUTROPHILS % 91.9 % (39.0-77.0); PLATELET COUNT 379 10^3/UL (140-415); RED BLOOD COUNT 4.01 10^6/ul (4.20-5.40)
[2017-10-27 11:39] LABS: ADD UMIC YES; UR ASCORBIC ACID 40 mg/dL (NEGATIVE); UR BACTERIA FEW /HPF (NONE SEEN); UR BILIRUBIN (Dip) NEGATIVE (NEGATIVE); UR BLOOD (Dip) NEGATIVE (NEGATIVE); UR CLARITY SLIGHTLY CLOUDY (CLEAR); UR COLOR AMBER (YELLOW); UR GLUCOSE (Dip) 1+ mg/dL (NEGATIVE); UR KETONES (Dip) TRACE mg/dL (NEGATIVE); UR LEUKOCYTE ESTERASE (Dip) TRACE Leu/ul (NEGATIVE); UR MUCUS MANY /HPF (NONE SEEN); UR NITRITE (Dip) NEGATIVE (NEGATIVE); UR RBC 2 /HPF (0-5); UR SPECIFIC GRAVITY (Dip) 1.024 (1.003-1.030); UR SQUAMOUS EPITHELIAL CELL MODERATE /HPF (FEW); UR TOTAL PROTEIN (Dip) 2+ mg/dl (NEGATIVE); UR UROBILINOGEN (Dip) NEGATIVE (NEGATIVE); UR WBC 10 /HPF (0-5)
[2017-10-27 11:49] LABS: ALANINE AMINOTRANSFERASE 101 IU/L (13-69); ALBUMIN 3.9 g/dl (3.3-4.9); ALBUMIN/GLOBULIN RATIO 0.97; ALKALINE PHOSPHATASE 108 IU/L (42-121); ANION GAP 13 (8-16); ASPARTATE AMINO TRANSFERASE 126 IU/L (15-46); BILIRUBIN,INDIRECT 0.3 mg/dl (0-1.1); BILIRUBIN,TOTAL 0.3 mg/dl (0.2-1.3); BLOOD UREA NITROGEN 10 mg/dl (7-20); CALCIUM 9.6 mg/dl (8.4-10.2); CARBON DIOXIDE 30 mmol/L (21-31); CHLORIDE 107 mmol/L (97-110); CREATININE 0.61 mg/dl (0.44-1.00); GLUCOSE 161 mg/dl (70-220); LIPASE 22 U/L (23-300); POTASSIUM 4.1 mmol/L (3.5-5.1); SODIUM 146 mmol/L (135-144); TOTAL PROTEIN 7.9 g/dl (6.1-8.1)
[2017-10-27] MEDS ORDERED: HYDROmorphONE 4 MG TAB PO ×2 (12:00→15:00)
[2017-10-27] MEDS ORDERED: oxyCODONE 5 MG TAB PO (12:00)
[2017-10-27] MEDS: LEVETIRACETAM 750 MG TAB PO ×2 (12:41→21:36)
[2017-10-27] MEDS ORDERED: NACL 0.9% 3 ML SYG IV (13:00)
[2017-10-27] MEDS ORDERED: IBUPROFEN 600 MG TAB PO (13:00)
[2017-10-27] MEDS ORDERED: MAGNESIUM HYDROXIDE 30ML CUP PO (13:00)
[2017-10-27] MEDS ORDERED: ACETAMINOPHEN 325 MG TAB PO (13:00)
[2017-10-27] MEDS ORDERED: ONDANSETRON 4 MG TAB PO (13:00)
[2017-10-27] MEDS ORDERED: DOCUSATE SODIUM 100 MG CAP PO (13:00)
[2017-10-27] MEDS ORDERED: HYDROmorphONE 1 MG/5 ML IV SYRINGE IV ×2 (13:00→19:00)
[2017-10-27] MEDS ORDERED: BISACODYL (EC) 5 MG TAB PO (13:00)
[2017-10-27] MEDS ORDERED: morphine (ER) 30 MG TAB PO (13:00)
[2017-10-27] MEDS ORDERED: BISACODYL 10 MG SUPP PR (13:00)
[2017-10-27] MEDS ORDERED: ONDANSETRON 4 MG INJ IV (13:00)
[2017-10-27] MEDS ORDERED: NA PHOSPHATE/BIPHOS 133 ML ENEMA PR (13:00)
[2017-10-27] MEDS: morphine (ER) 30 MG TAB PO ×2 (13:12→17:21)
[2017-10-27] MEDS: LORAZEPAM 1 MG TAB PO (13:13)
[2017-10-27] MEDS: METOCLOPRAMIDE 5 MG TAB PO ×2 (13:13→21:36)
[2017-10-27] MEDS: ONDANSETRON 4 MG INJ IV ×2 (13:39→14:10)
[2017-10-27] MEDS: LORAZEPAM 2 MG INJ IV (14:10)
[2017-10-27] MEDS: HYDROmorphONE 1 MG/5 ML IV SYRINGE IV (14:10)
[2017-10-27] MEDS: DEXAMETHASONE 4 MG TAB PO ×2 (17:15→23:00)
[2017-10-27] MEDS: HYDROmorphONE 2 MG/ML SYG IV ×3 (18:40→21:37)
[2017-10-27] MEDS: morphine (ER) 15 MG TAB PO (21:37)
[2017-10-28] MEDS: HYDROmorphONE 2 MG/ML SYG IV ×11 (01:11→22:59)
[2017-10-28] MEDS: METOCLOPRAMIDE 10 MG INJ IV (05:21)
[2017-10-28] MEDS: DEXAMETHASONE 4 MG TAB PO ×3 (06:08→23:31)
[2017-10-28 06:24] LABS: ADD MAN DIFF? NO
[2017-10-28 06:33] LABS: WHITE BLOOD COUNT 14.6 10^3/ul (4.8-10.8)
[2017-10-28 06:33] LABS: BASOPHILS % 0.2 % (0.0-2.0); EOSINOPHILS % 0.1 % (0.0-7.0); HEMATOCRIT 31.2 % (37.0-47.0); HEMOGLOBIN 9.9 g/dl (12.0-16.0); LYMPHOCYTES # 0.8 10^3/ul (0.8-2.9); LYMPHOCYTES % 5.3 % (15.0-51.0); MEAN CORPUSCULAR HEMOGLOBIN 29.4 pg (29.0-33.0); MEAN CORPUSCULAR HGB CONC 31.7 g/dl (32.0-37.0); MEAN CORPUSCULAR VOLUME 92.6 fl (82.0-101.0); MEAN PLATELET VOLUME 9.4 fl (7.4-10.4); MONOCYTE # 0.5 10^3/ul (0.3-0.9); MONOCYTES % 3.2 % (0.0-11.0); NEUTROPHIL # 13.2 10^3/ul (1.6-7.5); NEUTROPHILS % 90.8 % (39.0-77.0); PLATELET COUNT 368 10^3/UL (140-415); RED BLOOD COUNT 3.37 10^6/ul (4.20-5.40); RED CELL DISTRIBUTION WIDTH 21.8 % (11.5-14.5)
[2017-10-28 07:05] LABS: ALANINE AMINOTRANSFERASE 87 IU/L (13-69); ALBUMIN/GLOBULIN RATIO 1.08; ALKALINE PHOSPHATASE 87 IU/L (42-121); ANION GAP 15 (8-16); ASPARTATE AMINO TRANSFERASE 86 IU/L (15-46); BILIRUBIN,INDIRECT 0.1 mg/dl (0-1.1); BILIRUBIN,TOTAL 0.1 mg/dl (0.2-1.3); BLOOD UREA NITROGEN 11 mg/dl (7-20); CALCIUM 9.2 mg/dl (8.4-10.2); CARBON DIOXIDE 28 mmol/L (21-31); CHLORIDE 101 mmol/L (97-110); CREATININE 0.63 mg/dl (0.44-1.00); GLUCOSE 132 mg/dl (70-220); PHOSPHORUS 5.2 mg/dl (2.5-4.9); POTASSIUM 4.6 mmol/L (3.5-5.1); SODIUM 139 mmol/L (135-144); TOTAL PROTEIN 7.7 g/dl (6.1-8.1)
[2017-10-28] MEDS ORDERED: TAMOXIFEN 10 MG TAB PO (09:00)
[2017-10-28] MEDS: METOCLOPRAMIDE 5 MG TAB PO ×3 (09:37→21:10)
[2017-10-28] MEDS: LEVETIRACETAM 750 MG TAB PO ×2 (09:38→21:09)
[2017-10-28] MEDS: FOLIC ACID 1 MG TAB PO (09:38)
[2017-10-28] MEDS: FUROSEMIDE 40 MG TAB PO (09:38)
[2017-10-28] MEDS: morphine (ER) 15 MG TAB PO ×2 (09:39→21:10)
[2017-10-28] MEDS: ENOXAPARIN 40 MG/0.4 ML SYG SC (09:42)
[2017-10-28] MEDS: LIDOCAINE 5% PATCH TD (13:12)
[2017-10-28] MEDS: LORAZEPAM 2 MG INJ IV (13:13)
[2017-10-28] MEDS: ZOLPIDEM 5 MG TAB PO (21:10)
[2017-10-29] MEDS: HYDROmorphONE 2 MG/ML SYG IV ×11 (00:48→22:57)
[2017-10-29 06:10] LABS: ADD MAN DIFF? NO
[2017-10-29 06:23] LABS: BASOPHILS % 0.1 % (0.0-2.0); HEMATOCRIT 30.3 % (37.0-47.0); HEMOGLOBIN 9.6 g/dl (12.0-16.0); LYMPHOCYTES # 0.8 10^3/ul (0.8-2.9); LYMPHOCYTES % 7.7 % (15.0-51.0); MEAN CORPUSCULAR HEMOGLOBIN 29.4 pg (29.0-33.0); MEAN CORPUSCULAR HGB CONC 31.7 g/dl (32.0-37.0); MEAN CORPUSCULAR VOLUME 92.9 fl (82.0-101.0); MEAN PLATELET VOLUME 9.5 fl (7.4-10.4); MONOCYTE # 0.5 10^3/ul (0.3-0.9); MONOCYTES % 5.3 % (0.0-11.0); NEUTROPHIL # 8.9 10^3/ul (1.6-7.5); NEUTROPHILS % 86.3 % (39.0-77.0); PLATELET COUNT 403 10^3/UL (140-415); RED BLOOD COUNT 3.26 10^6/ul (4.20-5.40); RED CELL DISTRIBUTION WIDTH 21.3 % (11.5-14.5)
[2017-10-29 06:23] LABS: WHITE BLOOD COUNT 10.3 10^3/ul (4.8-10.8)
[2017-10-29 06:37] LABS: ALANINE AMINOTRANSFERASE 79 IU/L (13-69); ALBUMIN/GLOBULIN RATIO 1.05; ALKALINE PHOSPHATASE 86 IU/L (42-121); ANION GAP 11 (8-16); ASPARTATE AMINO TRANSFERASE 66 IU/L (15-46); BILIRUBIN,INDIRECT 0.1 mg/dl (0-1.1); BILIRUBIN,TOTAL 0.1 mg/dl (0.2-1.3); BLOOD UREA NITROGEN 11 mg/dl (7-20); CARBON DIOXIDE 30 mmol/L (21-31); CHLORIDE 101 mmol/L (97-110); CREATININE 0.65 mg/dl (0.44-1.00); GLUCOSE 126 mg/dl (70-220); POTASSIUM 4.2 mmol/L (3.5-5.1); SODIUM 138 mmol/L (135-144); TOTAL PROTEIN 7.8 g/dl (6.1-8.1)
[2017-10-29] MEDS: DEXAMETHASONE 4 MG TAB PO ×3 (06:50→23:28)
[2017-10-29] MEDS: LEVETIRACETAM 750 MG TAB PO ×2 (08:51→21:16)
[2017-10-29] MEDS: morphine (ER) 15 MG TAB PO ×2 (08:51→21:45)
[2017-10-29] MEDS: FOLIC ACID 1 MG TAB PO (08:52)
[2017-10-29] MEDS: FUROSEMIDE 40 MG TAB PO (08:53)
[2017-10-29] MEDS: METOCLOPRAMIDE 5 MG TAB PO ×3 (08:53→21:16)
[2017-10-29] MEDS: ENOXAPARIN 40 MG/0.4 ML SYG SC (08:58)
[2017-10-29] MEDS: LIDOCAINE 5% PATCH TD (09:03)
[2017-10-29] MEDS: METOCLOPRAMIDE 10 MG INJ IV (11:20)
[2017-10-29] MEDS: LORAZEPAM 2 MG INJ IV (11:22)
[2017-10-29] MEDS: ZOLPIDEM 5 MG TAB PO (23:33)
[2017-10-30] MEDS: HYDROmorphONE 2 MG/ML SYG IV ×12 (00:59→23:17)
[2017-10-30] MEDS: DEXAMETHASONE 4 MG TAB PO ×3 (06:45→23:16)
[2017-10-30] MEDS: morphine (ER) 15 MG TAB PO ×2 (08:52→21:18)
[2017-10-30] MEDS: FOLIC ACID 1 MG TAB PO (09:42)
[2017-10-30] MEDS: LEVETIRACETAM 750 MG TAB PO ×2 (09:42→21:18)
[2017-10-30] MEDS: METOCLOPRAMIDE 5 MG TAB PO ×3 (09:43→21:18)
[2017-10-30] MEDS: FUROSEMIDE 40 MG TAB PO (09:43)
[2017-10-30] MEDS: LIDOCAINE 5% PATCH TD (09:44)
[2017-10-30] MEDS: ENOXAPARIN 40 MG/0.4 ML SYG SC (09:49)
[2017-10-30] MEDS: METOCLOPRAMIDE 10 MG INJ IV (11:02)
[2017-10-30] MEDS: LORAZEPAM 2 MG INJ IV (11:02)
[2017-10-30] MEDS: ZOLPIDEM 5 MG TAB PO (21:18)
[2017-10-31] MEDS: HYDROmorphONE 2 MG/ML SYG IV ×11 (01:21→23:00)
[2017-10-31] MEDS: LIDOCAINE 5% PATCH TD (08:28)
[2017-10-31] MEDS: LEVETIRACETAM 750 MG TAB PO ×2 (08:29→20:52)
[2017-10-31] MEDS: DEXAMETHASONE 4 MG TAB PO ×3 (08:29→23:00)
[2017-10-31] MEDS: FOLIC ACID 1 MG TAB PO (08:29)
[2017-10-31] MEDS: morphine (ER) 15 MG TAB PO ×2 (08:29→21:51)
[2017-10-31] MEDS: METOCLOPRAMIDE 5 MG TAB PO ×3 (08:29→20:52)
[2017-10-31] MEDS: FUROSEMIDE 40 MG TAB PO (08:29)
[2017-10-31] MEDS: ENOXAPARIN 40 MG/0.4 ML SYG SC (08:31)
[2017-10-31] MEDS: LORAZEPAM 2 MG INJ IV ×2 (10:44→19:38)
[2017-10-31] MEDS: ZOLPIDEM 5 MG TAB PO (23:58)
[2017-11-01] MEDS: HYDROmorphONE 2 MG/ML SYG IV ×12 (01:04→23:33)
[2017-11-01] MEDS: DEXAMETHASONE 4 MG TAB PO ×3 (06:53→23:33)
[2017-11-01] MEDS: LORAZEPAM 2 MG INJ IV ×2 (08:28→18:09)
[2017-11-01] MEDS: LEVETIRACETAM 750 MG TAB PO ×2 (08:53→20:42)
[2017-11-01] MEDS: FOLIC ACID 1 MG TAB PO (08:53)
[2017-11-01] MEDS: METOCLOPRAMIDE 5 MG TAB PO ×3 (08:53→20:43)
[2017-11-01] MEDS: FUROSEMIDE 40 MG TAB PO (08:53)
[2017-11-01] MEDS: LIDOCAINE 5% PATCH TD (08:54)
[2017-11-01] MEDS: ENOXAPARIN 40 MG/0.4 ML SYG SC (08:58)
[2017-11-01] MEDS: morphine (ER) 15 MG TAB PO ×2 (09:54→20:43)
[2017-11-01 11:27] LABS: CA27.29 26 U/mL (<38)
[2017-11-01 22:48] LABS: CANCER ANTIGEN 15-3 17 U/mL (<32)
[2017-11-02] MEDS: ZOLPIDEM 5 MG TAB PO (00:26)
[2017-11-02] MEDS: HYDROmorphONE 2 MG/ML SYG IV ×6 (01:34→12:30)
[2017-11-02] MEDS: LORAZEPAM 2 MG INJ IV ×2 (04:40→13:22)
[2017-11-02] MEDS: DEXAMETHASONE 4 MG TAB PO (06:50)
[2017-11-02] MEDS: METOCLOPRAMIDE 5 MG TAB PO ×2 (08:08→13:22)
[2017-11-02] MEDS: FUROSEMIDE 40 MG TAB PO (08:09)
[2017-11-02] MEDS: FOLIC ACID 1 MG TAB PO (08:09)
[2017-11-02] MEDS: LEVETIRACETAM 750 MG TAB PO (08:09)
[2017-11-02] MEDS: LIDOCAINE 5% PATCH TD (08:13)
[2017-11-02] MEDS: morphine (ER) 15 MG TAB PO (08:20)
[2017-11-02] MEDS: ENOXAPARIN 40 MG/0.4 ML SYG SC (08:33)
== END 2017-11-02 14:55 | disposition home or self-care (01) | DRG 55 ==
LOC: E/R 09:42 → MS2 14:13
DX: C79.31 Secondary malignant neoplasm of brain (principal); F11.20 Opioid dependence, uncomplicated; C78.7 Secondary malignant neoplasm of liver and intrahepatic bile duct; C79.51 Secondary malignant neoplasm of bone; C78.00 Secondary malignant neoplasm of unspecified lung; J91.0 Malignant pleural effusion; M48.53XA Collapsed vertebra, not elsewhere classified, cervicothoracic region, initial encounter for fracture; C50.912 Malignant neoplasm of unspecified site of left female breast; C50.911 Malignant neoplasm of unspecified site of right female breast; E86.0 Dehydration; G89.4 Chronic pain syndrome; G40.909 Epilepsy, unspecified, not intractable, without status epilepticus; R11.2 Nausea with vomiting, unspecified; F41.9 Anxiety disorder, unspecified; Z17.0 Estrogen receptor positive status [ER+]
CPT/HCPCS: 70450; 70553; 74176; 76705; 80053; 81001; 83690; 83735; 84100; 85025; 86300; 96372; 96374; 96375; 99285-25

== ENCOUNTER 2017-12-15 12:45 | Emergency (ER) | payer OTHER, MEDICAID ==
[2017-12-15] MEDS: HYDROCODONE/APAP (10/325) TAB PO (14:32)
[2017-12-15] MEDS: FUROSEMIDE 20 MG TAB PO (14:33)
[2017-12-15] MEDS: ONDANSETRON (ODT) 4 MG TAB ODT (14:33)
[2017-12-15] MEDS: KETOROLAC 30 MG INJ IM (16:07)
== END 2017-12-15 16:20 | disposition home or self-care (01) ==
LOC: E/R 12:45
DX: J81.0 Acute pulmonary edema (principal); R11.2 Nausea with vomiting, unspecified; Z85.3 Personal history of malignant neoplasm of breast
CPT/HCPCS: 71045; 81025; 93005; 96372; 99284-25

== ENCOUNTER 2018-02-14 19:13 | Inpatient (IN) | payer OTHER ==
[2018-02-14] MEDS: HYDROmorphONE 1 MG/ML SYG IV (23:43)
[2018-02-14] MEDS: ONDANSETRON 4 MG INJ IV (23:43)
[2018-02-14] MEDS: SODIUM CHLORIDE 0.9% 1L BAG IV* (23:44)
[2018-02-14 23:54] LABS: ADD MAN DIFF? NO
[2018-02-14 23:56] LABS: WHITE BLOOD COUNT 11.9 10^3/ul (4.8-10.8)
[2018-02-14 23:56] LABS: HEMOGLOBIN 11.7 g/dl (12.0-16.0); RED BLOOD COUNT 4.07 10^6/ul (4.20-5.40)
[2018-02-14 23:57] LABS: BASOPHILS % 0.3 % (0.0-2.0); EOSINOPHILS # 0.1 10^3/ul (0.0-0.5); EOSINOPHILS % 0.8 % (0.0-7.0); HEMATOCRIT 35.9 % (37.0-47.0); LYMPHOCYTES # 1.2 10^3/ul (0.8-2.9); LYMPHOCYTES % 10.4 % (15.0-51.0); MEAN CORPUSCULAR HEMOGLOBIN 28.7 pg (29.0-33.0); MEAN CORPUSCULAR HGB CONC 32.6 g/dl (32.0-37.0); MEAN CORPUSCULAR VOLUME 88.2 fl (82.0-101.0); MEAN PLATELET VOLUME 8.8 fl (7.4-10.4); MONOCYTES % 8.1 % (0.0-11.0); NEUTROPHIL # 9.6 10^3/ul (1.6-7.5); NEUTROPHILS % 80.1 % (39.0-77.0); PLATELET COUNT 398 10^3/UL (140-415); RED CELL DISTRIBUTION WIDTH 14.6 % (11.5-14.5)
[2018-02-15 00:14] LABS: LACTIC ACID 0.8 mmol/L (0.5-2.0)
[2018-02-15 00:15] LABS: ALANINE AMINOTRANSFERASE 25 IU/L (13-69); ALBUMIN 4.2 g/dl (3.3-4.9); ALBUMIN/GLOBULIN RATIO 0.84; ALKALINE PHOSPHATASE 125 IU/L (42-121); ANION GAP 12 (8-16); ASPARTATE AMINO TRANSFERASE 34 IU/L (15-46); BILIRUBIN,INDIRECT 0.2 mg/dl (0-1.1); BILIRUBIN,TOTAL 0.2 mg/dl (0.2-1.3); BLOOD UREA NITROGEN 18 mg/dl (7-20); CALCIUM 9.7 mg/dl (8.4-10.2); CARBON DIOXIDE 38 mmol/L (21-31); CHLORIDE 91 mmol/L (97-110); CREATININE 0.84 mg/dl (0.44-1.00); GLUCOSE 105 mg/dl (70-220); SODIUM 138 mmol/L (135-144); TOTAL PROTEIN 9.2 g/dl (6.1-8.1)
[2018-02-15 00:19] LABS: POTASSIUM 2.5 mmol/L (3.5-5.1)
[2018-02-15 00:26] LABS: TROPONIN-I < 0.010 ng/ml (0.000-0.120)
[2018-02-15 00:28] LABS: INR 0.93; PROTIME 12.6 Sec (11.9-14.9)
[2018-02-15 00:29] LABS: PARTIAL THROMBOPLASTIN TIME 29.2 Sec (25.0-35.0)
[2018-02-15] MEDS: POTASSIUM CHLORIDE 100 ML IVPB ×4 (00:34→09:59)
[2018-02-15 00:56] LABS: ADD UMIC YES; UR ASCORBIC ACID NEGATIVE (NEGATIVE); UR BACTERIA FEW /HPF (NONE SEEN); UR BILIRUBIN (Dip) NEGATIVE (NEGATIVE); UR BLOOD (Dip) 1+ mg/dL (NEGATIVE); UR CLARITY CLEAR (CLEAR); UR COLOR YELLOW (YELLOW); UR GLUCOSE (Dip) NEGATIVE (NEGATIVE); UR KETONES (Dip) TRACE mg/dL (NEGATIVE); UR LEUKOCYTE ESTERASE (Dip) 1+ Leu/ul (NEGATIVE); UR NITRITE (Dip) NEGATIVE (NEGATIVE); UR RBC 2 /HPF (0-5); UR SPECIFIC GRAVITY (Dip) 1.018 (1.003-1.030); UR SQUAMOUS EPITHELIAL CELL FEW /HPF (FEW); UR TOTAL PROTEIN (Dip) NEGATIVE (NEGATIVE); UR UROBILINOGEN (Dip) NEGATIVE (NEGATIVE); UR WBC 5 /HPF (0-5)
[2018-02-15] MEDS ORDERED: LEVETIRACETAM 750 MG TAB PO (01:00)
[2018-02-15] MEDS: LEVETIRACETAM IV 750 MG in DEXTROSE 5% 100 ML IVPB ×3 (01:24→21:08)
[2018-02-15] MEDS: HYDROmorphONE 0.5 MG/0.5 ML SYG IV (01:48)
[2018-02-15] MEDS: CIPROFLOXACIN 400MG/D5W 200 ML IVPB (01:49)
[2018-02-15] MEDS ORDERED: HYDROmorphONE 4 MG TAB PO (03:00)
[2018-02-15] MEDS ORDERED: NON-FORMULARY/PATIENT OWN MED (Ergocalciferol (Vitamin D2) (Vitamin D2) 50,000 UNIT) PO (03:00)
[2018-02-15] MEDS ORDERED: ZOLPIDEM TARTRATE 5 MG PO (03:00)
[2018-02-15] MEDS ORDERED: LORAZEPAM 1 MG TAB PO (03:00)
[2018-02-15 03:04] LABS: LACTIC ACID 0.7 mmol/L (0.5-2.0)
[2018-02-15] MEDS: VANCOMYCIN 1 GM (PMX) 250 ML IVPB (03:12)
[2018-02-15] MEDS: POTASSIUM CHLORIDE (SR) 20 MEQ TAB PO (03:14)
[2018-02-15 05:56] LABS: ADD MAN DIFF? NO
[2018-02-15 05:58] LABS: WHITE BLOOD COUNT 10.3 10^3/ul (4.8-10.8)
[2018-02-15 05:58] LABS: BASOPHILS % 0.3 % (0.0-2.0); EOSINOPHILS # 0.1 10^3/ul (0.0-0.5); EOSINOPHILS % 1.2 % (0.0-7.0); HEMATOCRIT 31.4 % (37.0-47.0); HEMOGLOBIN 10.2 g/dl (12.0-16.0); LYMPHOCYTES # 1.2 10^3/ul (0.8-2.9); LYMPHOCYTES % 11.8 % (15.0-51.0); MEAN CORPUSCULAR HEMOGLOBIN 29.1 pg (29.0-33.0); MEAN CORPUSCULAR HGB CONC 32.5 g/dl (32.0-37.0); MEAN CORPUSCULAR VOLUME 89.7 fl (82.0-101.0); MEAN PLATELET VOLUME 8.6 fl (7.4-10.4); MONOCYTE # 0.9 10^3/ul (0.3-0.9); MONOCYTES % 8.6 % (0.0-11.0); NEUTROPHILS % 77.8 % (39.0-77.0); PLATELET COUNT 312 10^3/UL (140-415); RED CELL DISTRIBUTION WIDTH 14.8 % (11.5-14.5)
[2018-02-15 06:24] LABS: LACTIC ACID < 0.5 mmol/L (0.5-2.0)
[2018-02-15 06:47] LABS: ALANINE AMINOTRANSFERASE 22 IU/L (13-69); ALBUMIN 3.3 g/dl (3.3-4.9); ALBUMIN/GLOBULIN RATIO 0.84; ALKALINE PHOSPHATASE 93 IU/L (42-121); ANION GAP 9 (8-16); ASPARTATE AMINO TRANSFERASE 27 IU/L (15-46); BILIRUBIN,INDIRECT 0.2 mg/dl (0-1.1); BILIRUBIN,TOTAL 0.2 mg/dl (0.2-1.3); BLOOD UREA NITROGEN 13 mg/dl (7-20); CALCIUM 8.4 mg/dl (8.4-10.2); CARBON DIOXIDE 32 mmol/L (21-31); CHLORIDE 101 mmol/L (97-110); CREATININE 0.73 mg/dl (0.44-1.00); GLUCOSE 79 mg/dl (70-220); POTASSIUM 3.3 mmol/L (3.5-5.1); SODIUM 139 mmol/L (135-144); TOTAL PROTEIN 7.2 g/dl (6.1-8.1)
[2018-02-15] MEDS: ONDANSETRON (ODT) 4 MG TAB ODT (08:26)
[2018-02-15] MEDS ORDERED: LEVOFLOXACIN 500 MG TAB PO (09:00)
[2018-02-15] MEDS ORDERED: oxyCODONE (CR) 10 MG TAB [oxyCONTIN] PO (09:00)
[2018-02-15] MEDS: HYDROmorphONE 1 MG/ML SYG IV ×5 (09:57→23:03)
[2018-02-15 12:22] LABS: LIPASE 29 U/L (23-300)
[2018-02-15 12:23] LABS: MAGNESIUM 2.1 mg/dl (1.7-2.5)
[2018-02-15 12:23] LABS: PHOSPHORUS 3.7 mg/dl (2.5-4.9)
[2018-02-15] MEDS: D5W-0.45 NACL + KCL 40 MEQ 1,000 ML IV ×3 (12:49→21:09)
[2018-02-15] MEDS: FOLIC ACID 1 MG TAB PO (15:47)
[2018-02-15] MEDS: ERGOCALCIFEROL 50,000 UNIT CAP PO (15:47)
[2018-02-15] MEDS: morphine (ER) 15 MG TAB PO ×2 (15:48→21:08)
[2018-02-15] MEDS: METOCLOPRAMIDE 10 MG INJ IV ×2 (15:48→21:08)
[2018-02-16] MEDS: HYDROmorphONE 1 MG/ML SYG IV ×4 (02:07→11:42)
[2018-02-16] MEDS: METOCLOPRAMIDE 10 MG INJ IV ×3 (08:36→20:21)
[2018-02-16] MEDS: FOLIC ACID 1 MG TAB PO (08:36)
[2018-02-16 09:08] LABS: ANION GAP 9 (8-16); BLOOD UREA NITROGEN 3 mg/dl (7-20); CALCIUM 8.5 mg/dl (8.4-10.2); CARBON DIOXIDE 27 mmol/L (21-31); CHLORIDE 106 mmol/L (97-110); CREATININE 0.58 mg/dl (0.44-1.00); GLUCOSE 118 mg/dl (70-220); POTASSIUM 3.7 mmol/L (3.5-5.1); SODIUM 138 mmol/L (135-144)
[2018-02-16] MEDS: LEVETIRACETAM IV 750 MG in DEXTROSE 5% 100 ML IVPB ×2 (09:31→20:49)
[2018-02-16] MEDS: morphine (ER) 15 MG TAB PO ×2 (09:32→20:22)
[2018-02-16] MEDS: FAMOTIDINE 20 MG INJ IV ×2 (09:32→20:21)
[2018-02-16] MEDS: D5W-0.45 NACL + KCL 20 MEQ 1,000 ML IV ×2 (10:20→20:49)
[2018-02-16] MEDS: CEFTRIAXONE 1 GM/50 ML (PMX) 50 ML IVPB (11:41)
[2018-02-16] MEDS: HYDROmorphONE 2 MG/ML SYG IV ×3 (14:57→21:05)
[2018-02-16] MEDS: BARIUM SULF 2% 450 ML BTL (BERRY SMOOTHIE) PO (15:23)
[2018-02-16] MEDS: VANCOMYCIN HCL 250 MG/5ML POSYG PO (16:37)
[2018-02-17] MEDS: ZOLPIDEM 5 MG TAB PO ×2 (00:31→23:13)
[2018-02-17] MEDS: HYDROmorphONE 2 MG/ML SYG IV ×7 (03:00→22:29)
[2018-02-17] MEDS: D5W-0.45 NACL + KCL 20 MEQ 1,000 ML IV ×3 (05:30→17:58)
[2018-02-17] MEDS: VANCOMYCIN HCL 250 MG/5ML POSYG PO ×4 (05:58→17:58)
[2018-02-17 06:24] LABS: ADD MAN DIFF? NO
[2018-02-17 06:29] LABS: BASOPHILS % 0.4 % (0.0-2.0); EOSINOPHILS # 0.3 10^3/ul (0.0-0.5); EOSINOPHILS % 4.6 % (0.0-7.0); HEMOGLOBIN 9.2 g/dl (12.0-16.0); LYMPHOCYTES # 0.9 10^3/ul (0.8-2.9); LYMPHOCYTES % 12.7 % (15.0-51.0); MEAN CORPUSCULAR HEMOGLOBIN 28.6 pg (29.0-33.0); MEAN CORPUSCULAR HGB CONC 31.7 g/dl (32.0-37.0); MEAN CORPUSCULAR VOLUME 90.1 fl (82.0-101.0); MEAN PLATELET VOLUME 9.1 fl (7.4-10.4); MONOCYTE # 0.5 10^3/ul (0.3-0.9); MONOCYTES % 6.4 % (0.0-11.0); NEUTROPHIL # 5.5 10^3/ul (1.6-7.5); NEUTROPHILS % 75.5 % (39.0-77.0); PLATELET COUNT 285 10^3/UL (140-415); RED BLOOD COUNT 3.22 10^6/ul (4.20-5.40); RED CELL DISTRIBUTION WIDTH 14.6 % (11.5-14.5)
[2018-02-17 06:29] LABS: WHITE BLOOD COUNT 7.2 10^3/ul (4.8-10.8)
[2018-02-17 07:06] LABS: ANION GAP 6 (8-16); CALCIUM 7.8 mg/dl (8.4-10.2); CARBON DIOXIDE 25 mmol/L (21-31); CHLORIDE 112 mmol/L (97-110); CREATININE 0.51 mg/dl (0.44-1.00); GLUCOSE 107 mg/dl (70-220); POTASSIUM 3.4 mmol/L (3.5-5.1); SODIUM 140 mmol/L (135-144)
[2018-02-17 07:12] LABS: BLOOD UREA NITROGEN < 2 mg/dl (7-20)
[2018-02-17] MEDS: FOLIC ACID 1 MG TAB PO (08:38)
[2018-02-17] MEDS: morphine (ER) 15 MG TAB PO ×2 (08:39→21:14)
[2018-02-17] MEDS: LEVETIRACETAM IV 750 MG in DEXTROSE 5% 100 ML IVPB ×2 (08:39→21:04)
[2018-02-17] MEDS: FAMOTIDINE 20 MG INJ IV ×2 (08:39→21:04)
[2018-02-17] MEDS: METOCLOPRAMIDE 10 MG INJ IV ×3 (08:39→21:04)
[2018-02-17] MEDS ORDERED: HYDROmorphONE 2 MG TAB PO (09:00)
[2018-02-17] MEDS: CEFTRIAXONE 1 GM/50 ML (PMX) 50 ML IVPB (11:29)
[2018-02-17] MEDS: ONDANSETRON 4 MG INJ IV (15:15)
[2018-02-18] MEDS: D5W-0.45 NACL + KCL 20 MEQ 1,000 ML IV ×2 (01:30→04:45)
[2018-02-18] MEDS: VANCOMYCIN HCL 250 MG/5ML POSYG PO ×5 (01:37→23:00)
[2018-02-18] MEDS: HYDROmorphONE 2 MG/ML SYG IV ×8 (01:37→22:56)
[2018-02-18 06:37] LABS: ADD MAN DIFF? NO
[2018-02-18 06:46] LABS: WHITE BLOOD COUNT 5.4 10^3/ul (4.8-10.8)
[2018-02-18 06:46] LABS: BASOPHILS % 0.7 % (0.0-2.0); EOSINOPHILS # 0.3 10^3/ul (0.0-0.5); EOSINOPHILS % 5.4 % (0.0-7.0); HEMATOCRIT 29.3 % (37.0-47.0); HEMOGLOBIN 9.6 g/dl (12.0-16.0); LYMPHOCYTES # 0.8 10^3/ul (0.8-2.9); LYMPHOCYTES % 15.6 % (15.0-51.0); MEAN CORPUSCULAR HEMOGLOBIN 29.2 pg (29.0-33.0); MEAN CORPUSCULAR HGB CONC 32.8 g/dl (32.0-37.0); MEAN CORPUSCULAR VOLUME 89.1 fl (82.0-101.0); MONOCYTE # 0.4 10^3/ul (0.3-0.9); MONOCYTES % 7.2 % (0.0-11.0); NEUTROPHIL # 3.8 10^3/ul (1.6-7.5); NEUTROPHILS % 70.5 % (39.0-77.0); PLATELET COUNT 267 10^3/UL (140-415); RED BLOOD COUNT 3.29 10^6/ul (4.20-5.40); RED CELL DISTRIBUTION WIDTH 14.4 % (11.5-14.5)
[2018-02-18 07:07] LABS: ANION GAP 9 (8-16); CALCIUM 8.1 mg/dl (8.4-10.2); CARBON DIOXIDE 26 mmol/L (21-31); CHLORIDE 108 mmol/L (97-110); CREATININE 0.56 mg/dl (0.44-1.00); GLUCOSE 97 mg/dl (70-220); POTASSIUM 3.4 mmol/L (3.5-5.1); SODIUM 140 mmol/L (135-144)
[2018-02-18 07:10] LABS: BLOOD UREA NITROGEN < 2 mg/dl (7-20)
[2018-02-18] MEDS: LEVETIRACETAM IV 750 MG in DEXTROSE 5% 100 ML IVPB (09:05)
[2018-02-18] MEDS: METOCLOPRAMIDE 10 MG INJ IV ×3 (09:07→21:42)
[2018-02-18] MEDS: FAMOTIDINE 20 MG INJ IV ×2 (09:07→21:42)
[2018-02-18] MEDS: FOLIC ACID 1 MG TAB PO (09:08)
[2018-02-18] MEDS: morphine (ER) 15 MG TAB PO ×2 (09:08→21:42)
[2018-02-18] MEDS: LEVETIRACETAM 750 MG TAB PO (21:42)
[2018-02-18] MEDS: ZOLPIDEM 5 MG TAB PO (22:57)
[2018-02-19] MEDS: HYDROmorphONE 2 MG/ML SYG IV ×4 (01:56→11:47)
[2018-02-19] MEDS: VANCOMYCIN HCL 250 MG/5ML POSYG PO ×3 (05:02→18:21)
[2018-02-19 06:54] LABS: ANION GAP 9 (8-16); CALCIUM 8.5 mg/dl (8.4-10.2); CARBON DIOXIDE 28 mmol/L (21-31); CHLORIDE 106 mmol/L (97-110); CREATININE 0.62 mg/dl (0.44-1.00); GLUCOSE 97 mg/dl (70-220); POTASSIUM 3.3 mmol/L (3.5-5.1); SODIUM 140 mmol/L (135-144)
[2018-02-19 06:55] LABS: BLOOD UREA NITROGEN < 2 mg/dl (7-20)
[2018-02-19] MEDS: METOCLOPRAMIDE 10 MG INJ IV ×2 (08:47→12:46)
[2018-02-19] MEDS: LEVETIRACETAM 750 MG TAB PO (08:47)
[2018-02-19] MEDS: FOLIC ACID 1 MG TAB PO (08:47)
[2018-02-19] MEDS: FAMOTIDINE 20 MG INJ IV (08:47)
[2018-02-19] MEDS: morphine (ER) 15 MG TAB PO (08:51)
[2018-02-19] MEDS: POTASSIUM CHLORIDE 100 ML IVPB (10:42)
[2018-02-19] MEDS: HYDROmorphONE 2 MG TAB PO ×2 (14:43→18:20)
[2018-02-19] MEDS: ONDANSETRON 4 MG INJ IV (17:40)
== END 2018-02-19 19:10 | disposition home or self-care (01) | DRG 372 ==
LOC: E/R 19:13 → TEL 02-15 01:33
DX: A04.72 Enterocolitis due to Clostridium difficile, not specified as recurrent (principal); C78.00 Secondary malignant neoplasm of unspecified lung; C79.31 Secondary malignant neoplasm of brain; C79.51 Secondary malignant neoplasm of bone; C50.919 Malignant neoplasm of unspecified site of unspecified female breast; E87.6 Hypokalemia; G40.909 Epilepsy, unspecified, not intractable, without status epilepticus; G89.29 Other chronic pain; R60.0 Localized edema
CPT/HCPCS: 36415; 71045; 80048; 80053; 81001; 83605; 83690; 83735; 84100; 84484; 85025; 85610; 85730; 87040; 87075; 87086; 93005; 96374; 96375; 99285-25; G0378

== ENCOUNTER 2018-02-20 13:20 | Emergency (ER) | payer OTHER ==
[2018-02-20] MEDS: VANCOMYCIN HCL 250 MG/5ML POSYG PO (15:47)
[2018-02-20] MEDS: HYDROCODONE/APAP (5/325) TAB PO (15:47)
[2018-02-20] MEDS: ONDANSETRON (ODT) 4 MG TAB ODT (15:47)
== END 2018-02-20 18:28 | disposition home or self-care (01) ==
LOC: E/R 13:20
DX: R10.84 Generalized abdominal pain (principal); R11.0 Nausea; Z85.3 Personal history of malignant neoplasm of breast; Z86.19 Personal history of other infectious and parasitic diseases
CPT/HCPCS: 99284; Z7502

== ENCOUNTER 2018-02-22 15:57 | Emergency (ER) | payer OTHER ==
[2018-02-22 16:53] LABS: ADD MAN DIFF? NO
[2018-02-22] MEDS: ONDANSETRON 4 MG INJ IV ×3 (16:53→20:06)
[2018-02-22] MEDS: SODIUM CHLORIDE 0.9% 1L BAG IV* (16:54)
[2018-02-22] MEDS: morphine 4 MG/ML VIAL IV (16:54)
[2018-02-22] MEDS: AZTREONAM 1 GM/NS (PMX) 50 ML IVPB (16:58)
[2018-02-22 16:59] LABS: BASOPHIL # 0.1 10^3/ul (0.0-0.1); BASOPHILS % 0.5 % (0.0-2.0); EOSINOPHILS # 0.1 10^3/ul (0.0-0.5); HEMATOCRIT 42.4 % (37.0-47.0); HEMOGLOBIN 13.8 g/dl (12.0-16.0); LYMPHOCYTES # 2.9 10^3/ul (0.8-2.9); LYMPHOCYTES % 21.9 % (15.0-51.0); MEAN CORPUSCULAR HEMOGLOBIN 28.1 pg (29.0-33.0); MEAN CORPUSCULAR HGB CONC 32.5 g/dl (32.0-37.0); MEAN CORPUSCULAR VOLUME 86.4 fl (82.0-101.0); MEAN PLATELET VOLUME 8.9 fl (7.4-10.4); MONOCYTE # 0.9 10^3/ul (0.3-0.9); MONOCYTES % 6.8 % (0.0-11.0); NEUTROPHILS % 69.1 % (39.0-77.0); NUCLEATED RED BLOOD CELLS% 0.2 /100WBC (0.0-0.0); PLATELET COUNT 565 10^3/UL (140-415); RED BLOOD COUNT 4.91 10^6/ul (4.20-5.40); RED CELL DISTRIBUTION WIDTH 14.7 % (11.5-14.5)
[2018-02-22 17:18] LABS: INR 0.93; PROTIME 12.5 Sec (11.9-14.9)
[2018-02-22 17:19] LABS: PARTIAL THROMBOPLASTIN TIME 29.2 Sec (25.0-35.0)
[2018-02-22 17:20] LABS: ALANINE AMINOTRANSFERASE 28 IU/L (13-69); ALBUMIN 4.7 g/dl (3.3-4.9); ALBUMIN/GLOBULIN RATIO 0.78; ALKALINE PHOSPHATASE 180 IU/L (42-121); ANION GAP 20 (8-16); ASPARTATE AMINO TRANSFERASE 43 IU/L (15-46); BILIRUBIN,INDIRECT 0.2 mg/dl (0-1.1); BILIRUBIN,TOTAL 0.2 mg/dl (0.2-1.3); BLOOD UREA NITROGEN 8 mg/dl (7-20); CALCIUM 11.2 mg/dl (8.4-10.2); CARBON DIOXIDE 28 mmol/L (21-31); CHLORIDE 98 mmol/L (97-110); CREATININE 0.79 mg/dl (0.44-1.00); GLUCOSE 161 mg/dl (70-220); POTASSIUM 3.3 mmol/L (3.5-5.1); SODIUM 143 mmol/L (135-144); TOTAL PROTEIN 10.7 g/dl (6.1-8.1)
[2018-02-22 17:29] LABS: LACTIC ACID 4.5 mmol/L (0.5-2.0)
[2018-02-22 17:31] LABS: TROPONIN-I < 0.012 ng/ml (0.000-0.120)
[2018-02-22] MEDS: VANCOMYCIN 1 GM (PMX) 250 ML IVPB (17:55)
[2018-02-22] MEDS: HYDROmorphONE 2 MG/ML SYG IV ×2 (17:56→20:06)
[2018-02-22] MEDS: POTASSIUM CHLORIDE (SR) 20 MEQ TAB PO (18:07)
[2018-02-22 19:57] LABS: LACTIC ACID 0.7 mmol/L (0.5-2.0)
== END 2018-02-22 20:21 | disposition short-term general hospital (02) ==
LOC: E/R 15:57
DX: A41.9 Sepsis, unspecified organism (principal); R65.21 Severe sepsis with septic shock; Z85.3 Personal history of malignant neoplasm of breast; Z85.830 Personal history of malignant neoplasm of bone; Z86.19 Personal history of other infectious and parasitic diseases
CPT/HCPCS: 36415; 71045; 74176; 80053; 83605; 84484; 84703; 85025; 85610; 85730; 87040; 93005; 96365; 96375; 96376; 99291-25

== ENCOUNTER 2018-04-04 17:57 | Inpatient (IN) | payer OTHER ==
[2018-04-04] MEDS: HYDROmorphONE 2 MG/ML SYG IV ×3 (19:01→23:24)
[2018-04-04] MEDS ORDERED: LACTULOSE 30ML CUP PO (20:30)
[2018-04-04] MEDS ORDERED: ONDANSETRON 4 MG TAB PO (20:30)
[2018-04-04] MEDS ORDERED: ACETAMINOPHEN 325 MG TAB PO (20:30)
[2018-04-04] MEDS ORDERED: NA PHOSPHATE/BIPHOS 133 ML ENEMA PR (20:30)
[2018-04-04] MEDS ORDERED: NALOXONE (0.4 MG/ML) INJ IV (20:30)
[2018-04-04] MEDS: DIPHENHYDRAMINE 25 MG CAP PO (21:14)
[2018-04-04] MEDS: CHOLESTYRAMINE 4 GM PACKET PO (23:00)
[2018-04-04] MEDS: LEVETIRACETAM 750 MG TAB PO (23:06)
[2018-04-04] MEDS: morphine (ER) 15 MG TAB PO (23:08)
[2018-04-04] MEDS: METHOCARBAMOL 500 MG TAB PO (23:08)
[2018-04-04] MEDS: VANCOMYCIN HCL 250 MG/5ML POSYG PO (23:09)
[2018-04-04] MEDS: POTASSIUM CHLORIDE (SR) 20 MEQ TAB PO (23:09)
[2018-04-05] MEDS: HYDROmorphONE 2 MG/ML SYG IV ×11 (01:30→23:55)
[2018-04-05 02:36] LABS: ADD UMIC YES; UR ASCORBIC ACID 40 mg/dL (NEGATIVE); UR BACTERIA MODERATE /HPF (NONE SEEN); UR BILIRUBIN (Dip) NEGATIVE (NEGATIVE); UR BLOOD (Dip) NEGATIVE (NEGATIVE); UR CALCIUM OXALATE CRYSTAL MANY /HPF (NONE SEEN); UR CLARITY SLIGHTLY CLOUDY (CLEAR); UR COLOR YELLOW (YELLOW); UR GLUCOSE (Dip) NEGATIVE (NEGATIVE); UR KETONES (Dip) NEGATIVE (NEGATIVE); UR LEUKOCYTE ESTERASE (Dip) 3+ Leu/ul (NEGATIVE); UR NITRITE (Dip) NEGATIVE (NEGATIVE); UR RBC 3 /HPF (0-5); UR SPECIFIC GRAVITY (Dip) 1.014 (1.003-1.030); UR SQUAMOUS EPITHELIAL CELL FEW /HPF (FEW); UR TOTAL PROTEIN (Dip) NEGATIVE (NEGATIVE); UR TRANSITIONAL EPI CELL FEW /HPF (NONE SEEN); UR UROBILINOGEN (Dip) NEGATIVE (NEGATIVE); UR WBC 49 /HPF (0-5)
[2018-04-05] MEDS: METOCLOPRAMIDE 10 MG INJ IV (03:30)
[2018-04-05] MEDS: PANTOPRAZOLE (EC) 40 MG TAB PO (05:48)
[2018-04-05] MEDS: morphine (ER) 15 MG TAB PO ×3 (05:49→22:01)
[2018-04-05] MEDS: VANCOMYCIN HCL 250 MG/5ML POSYG PO ×3 (05:49→22:02)
[2018-04-05 06:41] LABS: ADD MAN DIFF? NO
[2018-04-05 06:47] LABS: WHITE BLOOD COUNT 12.4 10^3/ul (4.8-10.8)
[2018-04-05 06:47] LABS: BASOPHIL # 0.1 10^3/ul (0.0-0.1); BASOPHILS % 0.4 % (0.0-2.0); EOSINOPHILS # 0.2 10^3/ul (0.0-0.5); EOSINOPHILS % 1.5 % (0.0-7.0); HEMATOCRIT 31.4 % (37.0-47.0); HEMOGLOBIN 10.1 g/dl (12.0-16.0); LYMPHOCYTES % 8.3 % (15.0-51.0); MEAN CORPUSCULAR HEMOGLOBIN 29.4 pg (29.0-33.0); MEAN CORPUSCULAR HGB CONC 32.2 g/dl (32.0-37.0); MEAN CORPUSCULAR VOLUME 91.3 fl (82.0-101.0); MONOCYTE # 0.9 10^3/ul (0.3-0.9); NEUTROPHIL # 10.2 10^3/ul (1.6-7.5); NEUTROPHILS % 82.5 % (39.0-77.0); PLATELET COUNT 605 10^3/UL (140-415); RED BLOOD COUNT 3.44 10^6/ul (4.20-5.40); RED CELL DISTRIBUTION WIDTH 15.1 % (11.5-14.5)
[2018-04-05 07:38] LABS: ALANINE AMINOTRANSFERASE 19 IU/L (13-69); ALBUMIN 3.4 g/dl (3.3-4.9); ALBUMIN/GLOBULIN RATIO 0.72; ALKALINE PHOSPHATASE 130 IU/L (42-121); ANION GAP 14 (8-16); ASPARTATE AMINO TRANSFERASE 33 IU/L (15-46); BILIRUBIN,INDIRECT 0.2 mg/dl (0-1.1); BILIRUBIN,TOTAL 0.2 mg/dl (0.2-1.3); BLOOD UREA NITROGEN 9 mg/dl (7-20); CARBON DIOXIDE 31 mmol/L (21-31); CHLORIDE 97 mmol/L (97-110); CREATININE 0.66 mg/dl (0.44-1.00); GLUCOSE 119 mg/dl (70-220); POTASSIUM 4.4 mmol/L (3.5-5.1); SODIUM 138 mmol/L (135-144); TOTAL PROTEIN 8.1 g/dl (6.1-8.1)
[2018-04-05] MEDS: LEVETIRACETAM 750 MG TAB PO ×2 (09:04→20:45)
[2018-04-05] MEDS: LORAZEPAM 1 MG TAB PO ×3 (09:04→17:06)
[2018-04-05] MEDS: METHOCARBAMOL 500 MG TAB PO (09:04)
[2018-04-05] MEDS: ASCORBIC ACID 500 MG TAB PO (09:04)
[2018-04-05] MEDS: CHOLESTYRAMINE 4 GM PACKET PO ×2 (09:05→20:46)
[2018-04-05] MEDS: ENOXAPARIN 40 MG/0.4 ML SYG SC (09:06)
[2018-04-05] MEDS: POTASSIUM CHLORIDE (SR) 20 MEQ TAB PO ×2 (09:10→20:46)
[2018-04-05] MEDS: BACLOFEN 10 MG TAB PO ×2 (13:00→20:45)
[2018-04-05] MEDS: GABAPENTIN 100 MG CAP PO ×2 (13:01→20:45)
[2018-04-05] MEDS: HYDROmorphONE 1 MG/ML SYG IV (15:53)
[2018-04-05] MEDS ORDERED: GENTAMICIN 120 MG/NS (PMX) 100 ML IVPB (18:30)
[2018-04-05] MEDS: GENTAMICIN 100 MG/50 ML NS IVPB (21:50)
[2018-04-05] MEDS: FENTAnyl PATCH 50 MCG/HR TRANSDERM (21:55)
[2018-04-06] MEDS: HYDROmorphONE 2 MG/ML SYG IV ×10 (02:23→21:59)
[2018-04-06] MEDS: DIPHENHYDRAMINE 25 MG CAP PO ×2 (02:55→19:40)
[2018-04-06] MEDS: PANTOPRAZOLE (EC) 40 MG TAB PO (06:06)
[2018-04-06] MEDS: VANCOMYCIN HCL 250 MG/5ML POSYG PO ×3 (06:07→21:29)
[2018-04-06] MEDS: morphine (ER) 15 MG TAB PO ×3 (06:07→21:20)
[2018-04-06] MEDS: CHOLESTYRAMINE 4 GM PACKET PO ×2 (08:55→21:00)
[2018-04-06] MEDS: LEVETIRACETAM 750 MG TAB PO ×2 (08:56→21:19)
[2018-04-06] MEDS: GABAPENTIN 100 MG CAP PO ×3 (08:56→21:19)
[2018-04-06] MEDS: POTASSIUM CHLORIDE (SR) 20 MEQ TAB PO ×2 (08:56→21:19)
[2018-04-06] MEDS: ASCORBIC ACID 500 MG TAB PO (08:56)
[2018-04-06] MEDS: ENOXAPARIN 40 MG/0.4 ML SYG SC (08:56)
[2018-04-06] MEDS: BACLOFEN 10 MG TAB PO ×3 (08:56→21:19)
[2018-04-06] MEDS: GENTAMICIN 80 MG/NS (PMX) 50 ML IVPB (08:57)
[2018-04-06] MEDS: LORAZEPAM 1 MG TAB PO (12:06)
[2018-04-07] MEDS: HYDROmorphONE 2 MG/ML SYG IV ×12 (00:02→22:23)
[2018-04-07] MEDS: SOD CHLORIDE 0.9% IVPB (02:17)
[2018-04-07] MEDS: GENTAMICIN IVPB (02:17)
[2018-04-07] MEDS: morphine (ER) 15 MG TAB PO ×3 (06:07→21:23)
[2018-04-07] MEDS: VANCOMYCIN HCL 250 MG/5ML POSYG PO ×3 (06:08→21:13)
[2018-04-07] MEDS: PANTOPRAZOLE (EC) 40 MG TAB PO (06:08)
[2018-04-07] MEDS: ENOXAPARIN 40 MG/0.4 ML SYG SC (08:34)
[2018-04-07] MEDS: CHOLESTYRAMINE 4 GM PACKET PO ×2 (08:41→21:13)
[2018-04-07] MEDS: LEVETIRACETAM 750 MG TAB PO ×3 (08:42→21:13)
[2018-04-07] MEDS: LORAZEPAM 1 MG TAB PO ×2 (08:42→16:33)
[2018-04-07] MEDS: ASCORBIC ACID 500 MG TAB PO (08:42)
[2018-04-07] MEDS: BACLOFEN 10 MG TAB PO ×4 (08:42→21:13)
[2018-04-07] MEDS: GABAPENTIN 100 MG CAP PO ×2 (08:42→13:49)
[2018-04-07] MEDS: POTASSIUM CHLORIDE (SR) 20 MEQ TAB PO ×2 (08:44→21:13)
[2018-04-07 13:37] LABS: GENTAMICIN,RANDOM 1.6 ug/ml
[2018-04-07] MEDS: GABAPENTIN 300 MG CAP PO (21:13)
[2018-04-07] MEDS: DIPHENHYDRAMINE 25 MG CAP PO (22:27)
[2018-04-08] MEDS: HYDROmorphONE 2 MG/ML SYG IV ×12 (01:32→21:20)
[2018-04-08] MEDS: PANTOPRAZOLE (EC) 40 MG TAB PO (05:39)
[2018-04-08] MEDS: VANCOMYCIN HCL 250 MG/5ML POSYG PO ×3 (05:39→21:22)
[2018-04-08] MEDS: morphine (ER) 15 MG TAB PO ×3 (06:18→22:13)
[2018-04-08] MEDS: LORAZEPAM 1 MG TAB PO ×2 (08:45→16:59)
[2018-04-08] MEDS: POTASSIUM CHLORIDE (SR) 20 MEQ TAB PO ×2 (09:00→21:00)
[2018-04-08] MEDS: CHOLESTYRAMINE 4 GM PACKET PO ×2 (09:00→21:00)
[2018-04-08] MEDS: ASCORBIC ACID 500 MG TAB PO (10:11)
[2018-04-08] MEDS: GABAPENTIN 100 MG CAP PO ×2 (10:13→13:35)
[2018-04-08] MEDS: BACLOFEN 10 MG TAB PO ×3 (10:13→21:12)
[2018-04-08] MEDS: ENOXAPARIN 40 MG/0.4 ML SYG SC ×2 (10:18→13:17)
[2018-04-08] MEDS: LEVETIRACETAM 750 MG TAB PO ×2 (13:23→21:13)
[2018-04-08] MEDS: GABAPENTIN 300 MG CAP PO (21:12)
[2018-04-08] MEDS: FENTAnyl PATCH 50 MCG/HR TRANSDERM (22:16)
[2018-04-09] MEDS: HYDROmorphONE 2 MG/ML SYG IV ×10 (00:08→22:43)
[2018-04-09] MEDS: DIPHENHYDRAMINE 25 MG CAP PO ×2 (02:09→20:38)
[2018-04-09] MEDS: PANTOPRAZOLE (EC) 40 MG TAB PO (06:34)
[2018-04-09] MEDS: VANCOMYCIN HCL 250 MG/5ML POSYG PO ×3 (06:34→22:08)
[2018-04-09 06:43] LABS: ADD MAN DIFF? NO
[2018-04-09 06:52] LABS: WHITE BLOOD COUNT 9.4 10^3/ul (4.8-10.8)
[2018-04-09 06:52] LABS: BASOPHIL # 0.1 10^3/ul (0.0-0.1); BASOPHILS % 0.6 % (0.0-2.0); EOSINOPHILS # 0.4 10^3/ul (0.0-0.5); EOSINOPHILS % 3.7 % (0.0-7.0); HEMATOCRIT 32.6 % (37.0-47.0); HEMOGLOBIN 10.3 g/dl (12.0-16.0); LYMPHOCYTES % 10.5 % (15.0-51.0); MEAN CORPUSCULAR HEMOGLOBIN 29.2 pg (29.0-33.0); MEAN CORPUSCULAR HGB CONC 31.6 g/dl (32.0-37.0); MEAN CORPUSCULAR VOLUME 92.4 fl (82.0-101.0); MEAN PLATELET VOLUME 8.8 fl (7.4-10.4); MONOCYTE # 0.6 10^3/ul (0.3-0.9); MONOCYTES % 6.6 % (0.0-11.0); NEUTROPHIL # 7.3 10^3/ul (1.6-7.5); NEUTROPHILS % 78.2 % (39.0-77.0); PLATELET COUNT 680 10^3/UL (140-415); RED BLOOD COUNT 3.53 10^6/ul (4.20-5.40); RED CELL DISTRIBUTION WIDTH 14.9 % (11.5-14.5)
[2018-04-09] MEDS: morphine (ER) 15 MG TAB PO ×3 (07:02→22:04)
[2018-04-09 07:12] LABS: ANION GAP 11 (8-16); BLOOD UREA NITROGEN 9 mg/dl (7-20); CALCIUM 9.7 mg/dl (8.4-10.2); CARBON DIOXIDE 34 mmol/L (21-31); CHLORIDE 99 mmol/L (97-110); CREATININE 0.75 mg/dl (0.44-1.00); GLUCOSE 95 mg/dl (70-220); POTASSIUM 4.1 mmol/L (3.5-5.1); SODIUM 140 mmol/L (135-144)
[2018-04-09 07:28] LABS: PHOSPHORUS 5.2 mg/dl (2.5-4.9)
[2018-04-09] MEDS: LEVETIRACETAM 750 MG TAB PO ×2 (09:41→20:35)
[2018-04-09] MEDS: ASCORBIC ACID 500 MG TAB PO (09:41)
[2018-04-09] MEDS: POTASSIUM CHLORIDE (SR) 20 MEQ TAB PO ×2 (09:41→20:36)
[2018-04-09] MEDS: BACLOFEN 10 MG TAB PO ×3 (09:41→20:35)
[2018-04-09] MEDS: GABAPENTIN 100 MG CAP PO ×2 (09:41→12:14)
[2018-04-09] MEDS: CHOLESTYRAMINE 4 GM PACKET PO ×2 (09:42→20:36)
[2018-04-09] MEDS: ENOXAPARIN 40 MG/0.4 ML SYG SC (09:55)
[2018-04-09] MEDS: METOCLOPRAMIDE 10 MG INJ IV (10:43)
[2018-04-09] MEDS: HYDROmorphONE 1 MG/ML SYG IV (20:31)
[2018-04-09] MEDS: GABAPENTIN 300 MG CAP PO (20:35)
[2018-04-10] MEDS: HYDROmorphONE 2 MG/ML SYG IV ×10 (00:38→23:01)
[2018-04-10] MEDS: DIPHENHYDRAMINE 25 MG CAP PO ×3 (03:58→23:18)
[2018-04-10] MEDS: PANTOPRAZOLE (EC) 40 MG TAB PO (06:02)
[2018-04-10] MEDS: VANCOMYCIN HCL 250 MG/5ML POSYG PO ×2 (06:02→17:55)
[2018-04-10] MEDS: morphine (ER) 15 MG TAB PO ×3 (06:03→22:05)
[2018-04-10] MEDS: ASCORBIC ACID 500 MG TAB PO (08:50)
[2018-04-10] MEDS: POTASSIUM CHLORIDE (SR) 20 MEQ TAB PO ×2 (08:50→21:00)
[2018-04-10] MEDS: LEVETIRACETAM 750 MG TAB PO ×2 (08:50→20:30)
[2018-04-10] MEDS: CHOLESTYRAMINE 4 GM PACKET PO ×2 (08:50→21:00)
[2018-04-10] MEDS: BACLOFEN 10 MG TAB PO ×3 (08:50→20:30)
[2018-04-10] MEDS: ENOXAPARIN 40 MG/0.4 ML SYG SC (08:51)
[2018-04-10] MEDS: GABAPENTIN 100 MG CAP PO ×2 (08:55→12:41)
[2018-04-10] MEDS: METOCLOPRAMIDE 10 MG INJ IV (09:34)
[2018-04-10] MEDS ORDERED: HYDROmorphONE 2 MG TAB PO (11:30)
[2018-04-10] MEDS: GABAPENTIN 300 MG CAP PO (20:30)
[2018-04-10] MEDS: HYDROmorphONE 0.5 MG/0.5 ML SYG IV (20:53)
[2018-04-10] MEDS ORDERED: HYDROmorphONE 1 MG/ML SYG IV (21:00)
[2018-04-11] MEDS: HYDROmorphONE 2 MG/ML SYG IV ×11 (02:32→23:22)
[2018-04-11] MEDS: VANCOMYCIN HCL 250 MG/5ML POSYG PO ×2 (06:02→18:00)
[2018-04-11] MEDS: PANTOPRAZOLE (EC) 40 MG TAB PO (06:02)
[2018-04-11] MEDS: morphine (ER) 15 MG TAB PO ×3 (06:04→22:37)
[2018-04-11] MEDS: BACLOFEN 10 MG TAB PO ×3 (08:38→21:06)
[2018-04-11] MEDS: ASCORBIC ACID 500 MG TAB PO (08:38)
[2018-04-11] MEDS: CHOLESTYRAMINE 4 GM PACKET PO ×2 (08:39→21:00)
[2018-04-11] MEDS: GABAPENTIN 100 MG CAP PO ×2 (08:39→13:03)
[2018-04-11] MEDS: LEVETIRACETAM 750 MG TAB PO ×2 (08:40→21:06)
[2018-04-11] MEDS: ENOXAPARIN 40 MG/0.4 ML SYG SC (08:40)
[2018-04-11] MEDS: POTASSIUM CHLORIDE (SR) 20 MEQ TAB PO ×2 (08:41→21:00)
[2018-04-11] MEDS: LORAZEPAM 1 MG TAB PO ×3 (08:42→17:36)
[2018-04-11] MEDS: DIPHENHYDRAMINE 25 MG CAP PO ×3 (14:42→23:21)
[2018-04-11] MEDS: GABAPENTIN 300 MG CAP PO (21:06)
[2018-04-11] MEDS: FENTAnyl PATCH 50 MCG/HR TRANSDERM (22:39)
[2018-04-12] MEDS: HYDROmorphONE 2 MG/ML SYG IV ×9 (02:00→22:40)
[2018-04-12] MEDS: DIPHENHYDRAMINE 25 MG CAP PO ×3 (04:31→19:48)
[2018-04-12] MEDS: PANTOPRAZOLE (EC) 40 MG TAB PO (05:38)
[2018-04-12] MEDS: morphine (ER) 15 MG TAB PO ×3 (05:39→21:51)
[2018-04-12] MEDS: VANCOMYCIN HCL 250 MG/5ML POSYG PO ×2 (05:39→17:32)
[2018-04-12] MEDS: POTASSIUM CHLORIDE (SR) 20 MEQ TAB PO ×2 (09:09→21:00)
[2018-04-12] MEDS: ASCORBIC ACID 500 MG TAB PO (09:09)
[2018-04-12] MEDS: ENOXAPARIN 40 MG/0.4 ML SYG SC (09:09)
[2018-04-12] MEDS: LEVETIRACETAM 750 MG TAB PO ×2 (09:10→21:52)
[2018-04-12] MEDS: BACLOFEN 10 MG TAB PO ×3 (09:10→21:52)
[2018-04-12] MEDS: GABAPENTIN 100 MG CAP PO (09:10)
[2018-04-12] MEDS: CHOLESTYRAMINE 4 GM PACKET PO ×2 (09:10→21:00)
[2018-04-12] MEDS: GABAPENTIN 300 MG CAP PO ×2 (13:38→21:52)
[2018-04-13] MEDS: DIPHENHYDRAMINE 25 MG CAP PO ×4 (00:41→20:40)
[2018-04-13] MEDS: HYDROmorphONE 2 MG/ML SYG IV ×10 (00:42→22:29)
[2018-04-13] MEDS: PANTOPRAZOLE (EC) 40 MG TAB PO (06:03)
[2018-04-13] MEDS: morphine (ER) 15 MG TAB PO ×3 (06:03→22:30)
[2018-04-13] MEDS: VANCOMYCIN HCL 250 MG/5ML POSYG PO ×2 (06:14→18:33)
[2018-04-13] MEDS: CHOLESTYRAMINE 4 GM PACKET PO ×2 (08:27→20:28)
[2018-04-13] MEDS: LEVETIRACETAM 750 MG TAB PO ×2 (09:55→20:27)
[2018-04-13] MEDS: GABAPENTIN 300 MG CAP PO ×3 (09:55→20:27)
[2018-04-13] MEDS: BACLOFEN 10 MG TAB PO ×3 (09:55→20:27)
[2018-04-13] MEDS: POTASSIUM CHLORIDE (SR) 20 MEQ TAB PO ×2 (09:56→20:28)
[2018-04-13] MEDS: ASCORBIC ACID 500 MG TAB PO (09:57)
[2018-04-13] MEDS: ENOXAPARIN 40 MG/0.4 ML SYG SC (09:58)
[2018-04-13] MEDS: LORAZEPAM 1 MG TAB PO (10:34)
[2018-04-14] MEDS: HYDROmorphONE 2 MG/ML SYG IV ×12 (00:42→23:53)
[2018-04-14] MEDS: DIPHENHYDRAMINE 25 MG CAP PO ×4 (00:42→23:48)
[2018-04-14] MEDS: PANTOPRAZOLE (EC) 40 MG TAB PO (06:41)
[2018-04-14] MEDS: VANCOMYCIN HCL 250 MG/5ML POSYG PO ×2 (06:41→17:46)
[2018-04-14] MEDS: morphine (ER) 15 MG TAB PO ×2 (06:42→13:38)
[2018-04-14] MEDS: BACLOFEN 10 MG TAB PO ×3 (09:00→20:16)
[2018-04-14] MEDS: POTASSIUM CHLORIDE (SR) 20 MEQ TAB PO ×2 (09:00→21:00)
[2018-04-14] MEDS: GABAPENTIN 300 MG CAP PO ×3 (09:01→20:16)
[2018-04-14] MEDS: LEVETIRACETAM 750 MG TAB PO ×2 (09:01→20:16)
[2018-04-14] MEDS: CHOLESTYRAMINE 4 GM PACKET PO ×2 (09:01→21:00)
[2018-04-14] MEDS: ENOXAPARIN 40 MG/0.4 ML SYG SC (09:02)
[2018-04-14] MEDS: ASCORBIC ACID 500 MG TAB PO (09:03)
[2018-04-14] MEDS: FENTAnyl PATCH 50 MCG/HR TRANSDERM (21:00)
[2018-04-15] MEDS: HYDROmorphONE 2 MG/ML SYG IV ×10 (01:58→23:15)
[2018-04-15] MEDS: morphine (ER) 15 MG TAB PO ×4 (01:58→23:14)
[2018-04-15] MEDS: DIPHENHYDRAMINE 25 MG CAP PO ×5 (04:03→23:14)
[2018-04-15] MEDS: VANCOMYCIN HCL 250 MG/5ML POSYG PO ×3 (06:00→18:58)
[2018-04-15] MEDS: PANTOPRAZOLE (EC) 40 MG TAB PO (06:11)
[2018-04-15] MEDS: FENTAnyl PATCH 50 MCG/HR TRANSDERM (08:33)
[2018-04-15] MEDS: CHOLESTYRAMINE 4 GM PACKET PO ×2 (09:41→21:00)
[2018-04-15] MEDS: LEVETIRACETAM 750 MG TAB PO ×2 (09:42→21:08)
[2018-04-15] MEDS: BACLOFEN 10 MG TAB PO ×3 (09:42→21:08)
[2018-04-15] MEDS: ASCORBIC ACID 500 MG TAB PO (09:42)
[2018-04-15] MEDS: GABAPENTIN 300 MG CAP PO ×3 (09:43→21:08)
[2018-04-15] MEDS: POTASSIUM CHLORIDE (SR) 20 MEQ TAB PO ×2 (09:43→21:00)
[2018-04-15] MEDS: ENOXAPARIN 40 MG/0.4 ML SYG SC (09:44)
[2018-04-15] MEDS: LORAZEPAM 1 MG TAB PO ×2 (12:32→17:15)
[2018-04-16] MEDS: HYDROmorphONE 2 MG/ML SYG IV ×10 (01:20→22:32)
[2018-04-16] MEDS: LORAZEPAM 1 MG TAB PO ×4 (01:22→23:15)
[2018-04-16] MEDS: DIPHENHYDRAMINE 25 MG CAP PO ×4 (03:32→20:30)
[2018-04-16] MEDS: PANTOPRAZOLE (EC) 40 MG TAB PO (05:44)
[2018-04-16] MEDS: morphine (ER) 15 MG TAB PO ×3 (05:45→22:01)
[2018-04-16] MEDS: VANCOMYCIN HCL 250 MG/5ML POSYG PO ×2 (05:54→18:26)
[2018-04-16 06:50] LABS: ADD MAN DIFF? NO
[2018-04-16 06:54] LABS: WHITE BLOOD COUNT 9.3 10^3/ul (4.8-10.8)
[2018-04-16 06:54] LABS: BASOPHILS % 0.3 % (0.0-2.0); EOSINOPHILS # 0.4 10^3/ul (0.0-0.5); EOSINOPHILS % 4.3 % (0.0-7.0); HEMATOCRIT 26.8 % (37.0-47.0); HEMOGLOBIN 8.4 g/dl (12.0-16.0); LYMPHOCYTES # 1.1 10^3/ul (0.8-2.9); LYMPHOCYTES % 11.5 % (15.0-51.0); MEAN CORPUSCULAR HEMOGLOBIN 28.9 pg (29.0-33.0); MEAN CORPUSCULAR HGB CONC 31.3 g/dl (32.0-37.0); MEAN CORPUSCULAR VOLUME 92.1 fl (82.0-101.0); MEAN PLATELET VOLUME 9.2 fl (7.4-10.4); MONOCYTE # 0.9 10^3/ul (0.3-0.9); MONOCYTES % 9.5 % (0.0-11.0); NEUTROPHIL # 6.8 10^3/ul (1.6-7.5); NEUTROPHILS % 73.9 % (39.0-77.0); PLATELET COUNT 492 10^3/UL (140-415); RED BLOOD COUNT 2.91 10^6/ul (4.20-5.40); RED CELL DISTRIBUTION WIDTH 14.6 % (11.5-14.5)
[2018-04-16 07:17] LABS: ALANINE AMINOTRANSFERASE 56 IU/L (13-69); ALBUMIN 2.7 g/dl (3.3-4.9); ALBUMIN/GLOBULIN RATIO 0.72; ALKALINE PHOSPHATASE 173 IU/L (42-121); ANION GAP 7 (5-13); ASPARTATE AMINO TRANSFERASE 55 IU/L (15-46); BILIRUBIN,INDIRECT 0.1 mg/dl (0-1.1); BILIRUBIN,TOTAL 0.1 mg/dl (0.2-1.3); BLOOD UREA NITROGEN 12 mg/dl (7-20); CALCIUM 9.3 mg/dl (8.4-10.2); CARBON DIOXIDE 32 mmol/L (21-31); CHLORIDE 99 mmol/L (97-110); GLUCOSE 97 mg/dl (70-220); POTASSIUM 4.5 mmol/L (3.5-5.1); SODIUM 138 mmol/L (135-144); TOTAL PROTEIN 6.4 g/dl (6.1-8.1)
[2018-04-16 07:19] LABS: MAGNESIUM 1.9 mg/dl (1.7-2.5)
[2018-04-16] MEDS: BACLOFEN 10 MG TAB PO ×3 (08:36→20:30)
[2018-04-16] MEDS: ASCORBIC ACID 500 MG TAB PO (08:36)
[2018-04-16] MEDS: CHOLESTYRAMINE 4 GM PACKET PO ×2 (08:37→20:38)
[2018-04-16] MEDS: POTASSIUM CHLORIDE (SR) 20 MEQ TAB PO ×2 (08:37→20:37)
[2018-04-16] MEDS: LEVETIRACETAM 750 MG TAB PO ×2 (08:37→20:30)
[2018-04-16] MEDS: GABAPENTIN 300 MG CAP PO ×3 (08:37→20:30)
[2018-04-16] MEDS: ENOXAPARIN 40 MG/0.4 ML SYG SC (08:38)
[2018-04-17] MEDS: HYDROmorphONE 1 MG/ML SYG IV ×8 (00:26→15:05)
[2018-04-17] MEDS: DIPHENHYDRAMINE 25 MG CAP PO ×3 (00:31→08:44)
[2018-04-17] MEDS: PANTOPRAZOLE (EC) 40 MG TAB PO (06:39)
[2018-04-17] MEDS: morphine (ER) 15 MG TAB PO ×2 (06:39→15:04)
[2018-04-17] MEDS: CHOLESTYRAMINE 4 GM PACKET PO (08:08)
[2018-04-17] MEDS: ASCORBIC ACID 500 MG TAB PO (08:08)
[2018-04-17] MEDS: POTASSIUM CHLORIDE (SR) 20 MEQ TAB PO (08:09)
[2018-04-17] MEDS: GABAPENTIN 300 MG CAP PO ×2 (08:09→13:16)
[2018-04-17] MEDS: LEVETIRACETAM 750 MG TAB PO (08:09)
[2018-04-17] MEDS: BACLOFEN 10 MG TAB PO ×2 (08:09→13:16)
[2018-04-17] MEDS: ENOXAPARIN 40 MG/0.4 ML SYG SC (08:10)
[2018-04-17] MEDS: VANCOMYCIN HCL 250 MG/5ML POSYG PO (08:11)
[2018-04-17] MEDS: LORAZEPAM 1 MG TAB PO (12:55)
[2018-04-17] MEDS: HEPARIN (100 UNITS/ML) 5 ML SYG CATHETER (15:23)
== END 2018-04-17 16:00 | disposition home health service (06) | DRG 560 ==
LOC: VRC 17:57
PROC: F07Z5ZZ Bed Mobility Treatment (ICD-10-PCS; principal; 2018-04-04)
PROC: F08Z2ZZ Grooming/Personal Hygiene Treatment (ICD-10-PCS; 2018-04-04)
DX: M48.57XD Collapsed vertebra, not elsewhere classified, lumbosacral region, subsequent encounter for fracture with routine healing (principal); C79.81 Secondary malignant neoplasm of breast; N39.0 Urinary tract infection, site not specified; M48.07 Spinal stenosis, lumbosacral region; G40.909 Epilepsy, unspecified, not intractable, without status epilepticus; G62.9 Polyneuropathy, unspecified; R52 Pain, unspecified; K59.03 Drug induced constipation; T40.0X5A Adverse effect of opium, initial encounter; G89.29 Other chronic pain; D64.9 Anemia, unspecified; R50.9 Fever, unspecified; K52.9 Noninfective gastroenteritis and colitis, unspecified
CPT/HCPCS: 80048; 80053; 80170; 81001; 83735; 84100; 85025; 87081; 87086; 97110; 97112; 97116; 97163; 97166; 97530; 97535; 97542

== ENCOUNTER 2018-04-24 14:42 | Emergency (ER) | payer OTHER ==
[2018-04-24] MEDS: SOD CHLORIDE 0.9% 1,000 ML IV (19:45)
[2018-04-24] MEDS: HYDROmorphONE 1 MG/ML SYG IV (19:45)
[2018-04-24] MEDS: ONDANSETRON 4 MG INJ IV (19:45)
[2018-04-24 19:49] LABS: ADD MAN DIFF? NO
[2018-04-24 19:54] LABS: WHITE BLOOD COUNT 17.5 10^3/ul (4.8-10.8)
[2018-04-24 19:54] LABS: BASOPHILS % 0.2 % (0.0-2.0); EOSINOPHILS % 0.2 % (0.0-7.0); HEMATOCRIT 30.5 % (37.0-47.0); HEMOGLOBIN 9.7 g/dl (12.0-16.0); LYMPHOCYTES # 1.2 10^3/ul (0.8-2.9); LYMPHOCYTES % 6.6 % (15.0-51.0); MEAN CORPUSCULAR HGB CONC 31.8 g/dl (32.0-37.0); MEAN CORPUSCULAR VOLUME 91.3 fl (82.0-101.0); MEAN PLATELET VOLUME 9.3 fl (7.4-10.4); MONOCYTE # 0.6 10^3/ul (0.3-0.9); MONOCYTES % 3.5 % (0.0-11.0); NEUTROPHIL # 15.6 10^3/ul (1.6-7.5); PLATELET COUNT 554 10^3/UL (140-415); RED BLOOD COUNT 3.34 10^6/ul (4.20-5.40); RED CELL DISTRIBUTION WIDTH 15.4 % (11.5-14.5)
[2018-04-24 20:13] LABS: ALANINE AMINOTRANSFERASE 18 IU/L (13-69); ALBUMIN 3.9 g/dl (3.3-4.9); ALBUMIN/GLOBULIN RATIO 0.79; ALKALINE PHOSPHATASE 182 IU/L (42-121); ANION GAP 8 (5-13); ASPARTATE AMINO TRANSFERASE 34 IU/L (15-46); BILIRUBIN,INDIRECT 0.1 mg/dl (0-1.1); BILIRUBIN,TOTAL 0.1 mg/dl (0.2-1.3); BLOOD UREA NITROGEN 8 mg/dl (7-20); CALCIUM 9.5 mg/dl (8.4-10.2); CARBON DIOXIDE 28 mmol/L (21-31); CHLORIDE 103 mmol/L (97-110); CREATININE 0.56 mg/dl (0.44-1.00); Estimated GFR > 60 mL/min (>60); GLUCOSE 107 mg/dl (70-220); LIPASE 60 U/L (23-300); SODIUM 139 mmol/L (135-144); TOTAL PROTEIN 8.8 g/dl (6.1-8.1)
[2018-04-24 20:14] LABS: PARTIAL THROMBOPLASTIN TIME 33.9 Sec (23.0-35.0)
[2018-04-24 20:16] LABS: INR 1.03; PROTIME 13.6 Sec (11.9-14.9); PT RATIO 1.1
[2018-04-24 21:00] LABS: ADD UMIC YES; UR ASCORBIC ACID 40 mg/dL (NEGATIVE); UR BACTERIA FEW /HPF (NONE SEEN); UR BILIRUBIN (Dip) NEGATIVE (NEGATIVE); UR BLOOD (Dip) NEGATIVE (NEGATIVE); UR CLARITY SLIGHTLY CLOUDY (CLEAR); UR COLOR YELLOW (YELLOW); UR GLUCOSE (Dip) NEGATIVE (NEGATIVE); UR KETONES (Dip) NEGATIVE (NEGATIVE); UR LEUKOCYTE ESTERASE (Dip) 1+ Leu/ul (NEGATIVE); UR MUCUS FEW /HPF (NONE SEEN); UR NITRITE (Dip) NEGATIVE (NEGATIVE); UR RBC 3 /HPF (0-5); UR SPECIFIC GRAVITY (Dip) 1.018 (1.003-1.030); UR SQUAMOUS EPITHELIAL CELL FEW /HPF (FEW); UR TOTAL PROTEIN (Dip) 1+ mg/dl (NEGATIVE); UR UROBILINOGEN (Dip) NEGATIVE (NEGATIVE); UR WBC 6 /HPF (0-5)
[2018-04-24] MEDS: CEFTRIAXONE 1 GM/50 ML (PMX) 50 ML IVPB (21:18)
[2018-04-24] MEDS: BACLOFEN 10 MG TAB PO (21:41)
[2018-04-24] MEDS: LEVETIRACETAM 750 MG TAB PO (21:41)
[2018-04-24] MEDS: GABAPENTIN 300 MG CAP PO (21:41)
[2018-04-24] MEDS: HYDROmorphONE 2 MG/ML SYG IV (22:18)
== END 2018-04-25 | disposition short-term general hospital (02) ==
LOC: E/R 04-25
DX: D72.820 Lymphocytosis (symptomatic) (principal); E86.0 Dehydration; R52 Pain, unspecified; C50.919 Malignant neoplasm of unspecified site of unspecified female breast; R11.2 Nausea with vomiting, unspecified; Z85.830 Personal history of malignant neoplasm of bone; Z85.841 Personal history of malignant neoplasm of brain
CPT/HCPCS: 36415; 80053; 81001; 83690; 85025; 85610; 85730; 96361; 96365; 96375; 96376; 99285-25